=== PATIENT | female | born 1945 | race Caucasian/White ===

== ENCOUNTER 2020-04-15 13:37 | Outpatient (CLI) | payer MEDICARE, SELFPAY ==
[2020-04-15 14:21] LABS: Alanine Aminotransferase 20 U/L (4-35); Albumin Level 4.4 g/dL (3.5-5.1); Alkaline Phosphatase 88 U/L (38-126); Anion Gap 7 mmol/L (8-16); Aspartate Amino Transferase 28 U/L (14-36); Bilirubin,Total 0.6 mg/dL (0.2-1.3); Blood Urea Nitrogen 13 mg/dL (7-17); Carbon Dioxide 27 mmol/L (22-30); Chloride 107 mmol/L (98-107); Cholesterol 298 mg/dL (0-200); Estimated Glomerular Filt Rate > 60; Glucose 88 mg/dL (65-105); HDL Direct 64 mg/dL; Potassium 3.8 mmol/L (3.4-5.0); Sodium 141 mmol/L (137-145); Triglycerides 193 mg/dL (<150)
[2020-04-15 14:32] LABS: LDL Cholesterol Direct 82 mg/dL
== END 2020-04-15 13:38 | disposition home or self-care (01) ==
PROVIDERS: PCP Emergency Medicine; Visit Provider Emergency Medicine
DX: E78.2 Mixed hyperlipidemia (principal)
CPT/HCPCS: 36415; 80053; 80061; 84443

== ENCOUNTER 2020-05-07 14:16 | Outpatient (CLI) | payer MEDICARE, SELFPAY ==
--- NOTE | ~2020-05-07 | DEXA_ITS ---
Bone Density Report Name: Jose Guadalupe Gutierrez Age: 74 Sex: Female Ethnicity: White Date of : 1945 Indication: postmenopausal; height loss; hysterectomy; Referring Provider: TOO VALADEZ Study: Bone densitometry was performed. Exam Date: May 07, 2020 Accession number: [id number] Bone Density: Region BMD T-score Z-score Classification AP Spine (L1-L4) 0.984 -0.6 1.7 Normal Femoral Neck (Left) 0.714 -1.2 0.8 Osteopenia Total Hip (Left) 0.927 -0.1 1.6 Normal Total Hip Bilateral Avg 0.910 -0.3 1.5 Normal Femoral Neck (Right) 0.729 -1.1 0.9 Osteopenia Total Hip (Right) 0.892 -0.4 1.3 Normal World Health Organization criteria for BMD impression classify patients as: Normal (T-score at or above -1.0), Osteopenia (T-score between -1.0 and -2.5), or Osteoporosis (T-score at or below -2.5). 10-year Fracture Risk(1): Major Osteoporotic Fracture 9.9% Hip Fracture 1.5% Reported Risk Factors: [place] (), Neck BMD=0.714, BMI=28.9 (1) FRAX(R) Version 3.08. Fracture probability calculated for an untreated patient. Fracture probability may be lower if the patient has received treatment. Previous Exams: Region Exam Age BMD T-score BMD Change BMD Change Date g/cm2 vs Baseline vs Previous AP Spine(L1-L4) 05/07/2020 74 0.984 -0.6 0.015(1.5%)# 0.008(0.8%)# 02/08/2017 71 0.976 -0.6 0.007(0.7%)# 0.001(0.1%)# 11/16/2011 66 0.974 -0.7 0.005(0.6%)# 0.005(0.6%)# 07/15/2009 63 0.969 -0.7 Total Hip(Left) 05/07/2020 74 0.927 -0.1 0.029(3.2%)# -0.076(-7.6%)# 02/08/2017 71 1.003 0.5 0.105(11.7%)# 0.117(13.2%)# 11/16/2011 66 0.886 -0.5 -0.012(-1.4%)# -0.012(-1.4%)# 07/15/2009 63 0.898 -0.4 Total Hip(Right) 05/07/2020 74 0.892 -0.4 -0.023(-2.5%)# -0.119(-11.8%) 02/08/2017 71 1.011 0.6 0.096(10.5%)# 0.153(17.8%)# 11/16/2011 66 0.858 -0.7 -0.057(-6.2%)# -0.057(-6.2%)# 07/15/2009 63 0.915 -0.2 *Denotes significance at 95% confidence level, LSC for AP Spine = 0.022 g/cm2, LSC for Total Hip = 0.027 g/cm2 Clinical Information Provided by Patient: Has the following medical conditions: Hysterectomy Patient maximum height was 63 No regular weight bearing exercise Drinks caffeinated beverages Onset of menses at age 14 Number of children 3 Impression: The patient has low bone mass, based on the Left Femoral Neck T-score. The patient has an estimated ten-year r
--- NOTE | ~2020-05-07 | MM_ITS ---
EXAMINATION: MM screening contra [facility] BI w edilia HISTORY: Screening mammogram TECHNIQUE: Craniocaudal and mediolateral oblique 3-D tomosynthesis images were obtained and synthetic 2-D images were generated. CAD analysis was submitted and interpreted. COMPARISON: 09/19/2016, 08/02/2015, 06/02/2014 BREAST PARENCHYMAL COMPOSITION: The breasts are almost entirely fatty. FINDINGS: A stable intramammary lymph node is noted in the right breast. There is no evidence of susp icious mass, calcification, or architectural distortion to suggest malignancy in either breast. There has been no suspicious interval change. IMPRESSION: 1. No mammographic evidence of malignancy. 2. Recommend routine screening mammography in one year. BI-RADS Category 2: Benign finding(s). Reviewed, dictated and finalized at location A.
== END 2020-05-07 14:17 | disposition home or self-care (01) ==
LOC: ANHIMG 14:47
PROVIDERS: PCP Emergency Medicine; Visit Provider Emergency Medicine
DX: Z12.31 Encounter for screening mammogram for malignant neoplasm of breast (principal); Z78.0 Asymptomatic menopausal state; M85.852 Other specified disorders of bone density and structure, left thigh; M85.851 Other specified disorders of bone density and structure, right thigh
CPT/HCPCS: 77063; 77067; 77080

== ENCOUNTER 2020-10-07 12:09 | Outpatient (CLI) | payer MEDICARE, SELFPAY ==
[2020-10-07 13:05] LABS: Alanine Aminotransferase 16 U/L (4-35); Albumin Level 4.3 g/dL (3.5-5.1); Alkaline Phosphatase 74 U/L (38-126); Anion Gap 5 mmol/L (8-16); Aspartate Amino Transferase 27 U/L (14-36); Bilirubin,Total 0.6 mg/dL (0.2-1.3); Blood Urea Nitrogen 16 mg/dL (7-17); Calcium 9.2 mg/dL (8.4-10.2); Carbon Dioxide 30 mmol/L (22-30); Chloride 107 mmol/L (98-107); Cholesterol 155 mg/dL (0-200); Estimated Glomerular Filt Rate > 60; Glucose 90 mg/dL (65-105); HDL Direct 63 mg/dL; Sodium 142 mmol/L (137-145); Triglycerides 158 mg/dL (<150)
[2020-10-07 13:18] LABS: LDL Cholesterol Direct < 30 mg/dL
[2020-10-11 10:35] LABS: Vitamin D 1,25 (OH)2 Total 39 pg/mL (18-72); Vitamin D2 1,25 (OH)2 <8 pg/mL; Vitamin D3 1,25 (OH)2 39 pg/mL
== END 2020-10-07 12:10 | disposition home or self-care (01) ==
PROVIDERS: PCP Emergency Medicine; Visit Provider Emergency Medicine
DX: F51.01 Primary insomnia (principal); E78.2 Mixed hyperlipidemia
CPT/HCPCS: 36415; 80053; 80061; 82652; 84443

== ENCOUNTER 2020-10-22 14:34 | Outpatient (CLI) | payer MEDICARE, SELFPAY ==
[2020-10-22 15:33] LABS: Alanine Aminotransferase 15 U/L (4-35); Albumin Level 4.4 g/dL (3.5-5.1); Alkaline Phosphatase 77 U/L (38-126); Anion Gap 5 mmol/L (8-16); Aspartate Amino Transferase 24 U/L (14-36); Bilirubin,Total 0.4 mg/dL (0.2-1.3); Blood Urea Nitrogen 15 mg/dL (7-17); Calcium 9.2 mg/dL (8.4-10.2); Carbon Dioxide 28 mmol/L (22-30); Chloride 109 mmol/L (98-107); Cholesterol 153 mg/dL (0-200); Estimated Glomerular Filt Rate > 60; Glucose 92 mg/dL (65-105); HDL Direct 64 mg/dL; Potassium 4.1 mmol/L (3.4-5.0); Sodium 142 mmol/L (137-145); Triglycerides 135 mg/dL (<150)
[2020-10-22 17:04] LABS: LDL Cholesterol Direct < 30 mg/dL
== END 2020-10-22 14:35 | disposition home or self-care (01) ==
PROVIDERS: PCP Emergency Medicine; Visit Provider Emergency Medicine
DX: E03.9 Hypothyroidism, unspecified (principal); E78.2 Mixed hyperlipidemia
CPT/HCPCS: 36415; 80053; 80061; 84443

== ENCOUNTER → 2020-10-27 14:15 | Outpatient (CLI) | payer MEDICARE, SELFPAY ==
--- NOTE | ~2020-10-27 | CT_ITS ---
EXAMINATION: CT abdomen pelvis w con DATE: 10/27/2020 14:55 INDICATION: Left lower quadrant abdominal pain TECHNIQUE: Computed tomography (CT) of the abdomen and pelvis was performed with 100 cc Omnipaque 350 intravenous contrast. Automated exposure control and iterative reconstruction technique were employe d. Exam dose: 739.64 mGy-cm total exam DLP. COMPARISON: 11/16/2011 complete abdominal ultrasound examination, reported normal FINDINGS: The lung bases are clear. Normal heart size. No pericardial or pleural effusion. The liver, gallbladder, bile ducts, spleen, pancreas and pancreatic duct as well as adrenal glands an d kidneys are unremarkable, with exception of upper pole chronic right renal scarring and a small low er pole right renal cyst. No urinary tract calculus or hydroureteronephrosis. The urinary bladder is relatively evacuated, essentially unremarkable. There is atherosclerotic calcification of the abdominal aorta but no aneurysm. No intraperitoneal or retroperitoneal or pelvic mass lesion or adenopathy or ascites. No bowel obstruction, bowel wall thickening, pneumatosis or intraperitoneal free air. The appendix is not detected. There is no evidence of appendicitis. Very small fat-containing umbilical hernia. Diffuse osteopenia. Degenerative changes of the thoracic and lumbar spine including degenerative victor ges apophyseal joints with associated grade 1 anterolisthesis at L4-5.. IMPRESSION: Chronic right upper lobe scarring and very small lower pole right renal cyst Reviewed, dictated and finalized at Location A. Reviewed, dictated and finalized at location B.
[2020-10-27 14:45] LABS: Estimated Glomerular Filt Rate > 60
== END ==
PROVIDERS: PCP Emergency Medicine; Visit Provider Emergency Medicine
DX: R10.9 Unspecified abdominal pain (principal); N28.1 Cyst of kidney, acquired
CPT/HCPCS: 74177; Q9967

== ENCOUNTER 2020-11-16 14:43 | Outpatient (CLI) | payer MEDICARE, SELFPAY | END 2020-11-16 14:44 | disposition home or self-care (01) | PROVIDERS: PCP Emergency Medicine; Visit Provider Emergency Medicine | DX: E03.9 Hypothyroidism, unspecified (principal) | CPT/HCPCS: 36415; 84443 ==

== ENCOUNTER 2021-01-17 13:07 | Outpatient (CLI) | payer MEDICARE, SELFPAY ==
[2021-01-17 13:40] LABS: Alanine Aminotransferase 27 U/L (4-35); Albumin Level 4.4 g/dL (3.5-5.1); Alkaline Phosphatase 93 U/L (38-126); Anion Gap 9 mmol/L (8-16); Aspartate Amino Transferase 34 U/L (14-36); Bilirubin,Total 0.6 mg/dL (0.2-1.3); Blood Urea Nitrogen 13 mg/dL (7-17); Calcium 9.2 mg/dL (8.4-10.2); Carbon Dioxide 25 mmol/L (22-30); Chloride 108 mmol/L (98-107); Cholesterol 189 mg/dL (0-200); Estimated Glomerular Filt Rate > 60; Glucose 90 mg/dL (65-105); HDL Direct 63 mg/dL; Potassium 4.2 mmol/L (3.4-5.0); Sodium 142 mmol/L (137-145); Triglycerides 149 mg/dL (<150)
[2021-01-17 13:52] LABS: LDL Cholesterol Direct 36 mg/dL
== END 2021-01-17 13:08 | disposition home or self-care (01) ==
LOC: ANHLAB 13:09
PROVIDERS: PCP Emergency Medicine; Visit Provider Emergency Medicine
DX: Z13.6 Encounter for screening for cardiovascular disorders (principal); E03.9 Hypothyroidism, unspecified
CPT/HCPCS: 36415; 80053; 80061; 84443

== ENCOUNTER 2021-01-19 14:01 | Outpatient (CLI) | payer MEDICARE, SELFPAY ==
--- NOTE | ~2021-01-19 | XR_ITS ---
XR knee LT 2V 01/19/2021 14:22 Indication: Left knee pain Procedure: 2 views of the left knee Comparison: No prior studies for comparison. Findings: There is mild osteoarthritis of the left knee. No fracture or traumatic malalignment. No si gnificant joint effusion. Impression: 1: Mild osteoarthritis of the left knee. Reviewed, dictated and finalized at location A. Impression: 1: Mild osteoarthritis of the left knee.
== END 2021-01-19 14:02 | disposition home or self-care (01) ==
PROVIDERS: PCP Emergency Medicine; Visit Provider Emergency Medicine
DX: M17.12 Unilateral primary osteoarthritis, left knee (principal)
CPT/HCPCS: 73560

== ENCOUNTER 2021-04-26 13:26 | Outpatient (CLI) | payer MEDICARE, SELFPAY ==
[2021-04-26 14:23] LABS: Alanine Aminotransferase 31 U/L (4-35); Albumin Level 4.7 g/dL (3.5-5.1); Alkaline Phosphatase 94 U/L (38-126); Anion Gap 10 mmol/L (8-16); Aspartate Amino Transferase 34 U/L (14-36); Bilirubin,Total 0.7 mg/dL (0.2-1.3); Blood Urea Nitrogen 16 mg/dL (7-17); Carbon Dioxide 27 mmol/L (22-30); Chloride 105 mmol/L (98-107); Cholesterol 192 mg/dL (0-200); Estimated Glomerular Filt Rate > 60; Glucose 89 mg/dL (65-110); HDL Direct 73 mg/dL; Potassium 4.2 mmol/L (3.4-5.0); Sodium 142 mmol/L (137-145); Triglycerides 138 mg/dL (<150)
[2021-04-26 14:57] LABS: LDL Cholesterol Direct 41 mg/dL
== END 2021-04-26 13:27 | disposition home or self-care (01) ==
LOC: ANHLAB 13:28
PROVIDERS: PCP Emergency Medicine; Visit Provider Emergency Medicine
DX: E78.2 Mixed hyperlipidemia (principal); Z13.6 Encounter for screening for cardiovascular disorders
CPT/HCPCS: 36415; 80053; 80061

== ENCOUNTER 2021-06-05 12:21 | Emergency (ER) | payer MEDICARE, SELFPAY ==
--- NOTE | ~2021-06-05 | XR_ITS ---
EXAMINATION: XR hip RT min 3V w AP pelvis EXAM DATE: 06/05/2021 13:06 INDICATION: right hip pain, fall. TECHNIQUE: Right hip frontal, crosstable lateral and 'frog-leg' projections for interpretation. Front al projection pelvis. There is no prior study for comparison. FINDINGS: Smooth right hip femoral head contour, no radiographic evidence of avascular necrosis. The re are no acute fractures or dislocations identified. There is no subcutaneous gas. The soft tissue is unremarkable. There are no radiopaque foreign bodies. There is mild to moderate symmetric bila teral hip primary osteoarthritis. IMPRESSION: 1. Pelvis, right hip exam without acute osseous findings. 2. Mild to moderate osteoarthritis. Reviewed, dictated and finalized at location A.
--- NOTE | ~2021-06-05 | CT_ITS ---
EXAMINATION: CT brain wo [facility] EXAM DATE: 06/05/2021 13:29 INDICATION: Head injury, fall down steps. TECHNIQUE: Spiral CT of the head was performed without contrast. Axial, coronal and sagittal images were reviewed. The dose-length product (DLP) for this examination was 605.33 mGy-cm. The exposure w as tailored according to patient size, and iterative reconstruction (ASIR) was used as additional dos e reduction technique. There is no prior study for comparison. FINDINGS: There is no acute intraparenchymal hemorrhage. No evidence of intraparenchymal brain mass lesion. No evidence of acute infarction. Please note that initial head CT has limited sensitivity f or small or acute infarctions. There is mild periventricular and subcortical hypodensity, nonspecific but probably related to small vessel ischemic disease. There is mild prominence of the sulci and v entricles related to cerebral atrophy. There is intracranial carotid arteriosclerosis. There are n o extra-axial collections. There is no mass effect or midline shift. The orbits are unremarkable. Soft tissue is unremarkable. The visualized sinuses and mastoid air cells are well aerated. IMPRESSION: 1. No acute intracranial findings. 2. Chronic age related findings. Reviewed, dictated and finalized at location A.
--- NOTE | ~2021-06-05 | XR_ITS ---
EXAMINATION: XR shoulder RT min 2V EXAM DATE: 06/05/2021 13:06 INDICATION: Right shoulder pain, fall. TECHNIQUE: The following right shoulder projections obtained: frontal projection with internal rotati on, frontal projection with external rotation, Grashey, and scapular Y view (4+ views). There is no prior study for comparison. FINDINGS: One of the images demonstrating widening of the right acromioclavicular joint, appearance i s suspicious for ligamentous injury. Please clinically correlate. There is humeral head rotator cuff repair anchor. There are no acute fractures identified. IMPRESSION: Possible right acromioclavicular ligamentous injury. Reviewed, dictated and finalized at location A.
[2021-06-05 12:23] VITALS: BP 189/63; PULSE 100; RESP 16; TEMP 36.8; O2SAT 100
--- NOTE | 2021-06-05 12:44 | ED.FALL ---
HPI - Fall General Chief Complaint: Fall <Shelley Fernandez PA-C - Last Filed: 06/05/21 14:34> Stated Complaint: fall, head and right shoulder pain <EDMOND Ashton Last Filed: 06/05/21 14:34> Time Seen by Provider: 06/05/21 12:22 <EDMOND Ashton Last Filed: 06/05/21 14:34> Source: patient <EDMOND Ashton Last Filed: 06/05/21 14:34> Mode of arrival: wheelchair <EDMOND Ashton Last Filed: 06/05/21 14:34> Limitations: no limitations <EDMOND Ashton Last Filed: 06/05/21 14:34> History of Present Illness HPI Narrative: This is a 75 year old female that presents to the ER after a fall down steps today. Reports she was sitting on the steps on a pillow. Reports the pillow started to slip causing her to slide down the steps. She hit her head and right shoulder at the bottom of the steps. Also reports right hip pain. Reports decreased range of motion of the right shoulder due to pain. Denies vision changes, vomiting, or numbness. <EDMOND Ashton Last Filed: 06/05/21 14:34> Related Data Allergies/Adverse Reactions: Allergies Allergy/AdvReac Type Severity Reaction Status Date / Time vancomycin Allergy Unknown unknown Verified 06/05/21 12:28 No Known Allergies Allergy Verified 06/05/21 12:28 <Shelley Fernandez PA-C - Last Filed: 06/05/21 14:34> Review of Systems Review of Systems: CONSTITUTIONAL: Denies fever EYES: Denies visual changes CARDIOVASCULAR: Denies chest pain GASTROINTESTINAL: Denies vomiting MUSCULOSKELETAL: Reports joint pain and myalgia. Denies back pain NEUROLOGIC: Reports headache. Denies numbness, or weakness. <EDMOND Ashton Last Filed: 06/05/21 14:34> All systems reviewed & are unremarkable except as noted in HPI and below <EDMOND Ashton Last Filed: 06/05/21 14:34> PMFSH Past Medical History Medical History: Medical History (Updated 06/05/21 @ 14:30 by Shelley Fernandez PA-C) Hypothyroidism (acquired) Insomnia <Shelley Fernandez PA-C - Last Filed: 06/05/21 14:34> Family History Family History: Family History Mother Diabetes mellitus Family history of cardiovascular disease Cerebrovascular accident Family history of arthritis Other Family history of type 2 diabetes mellitus <Shelley Fernandez PA-C - Last Filed: 06/05/21 14:34> Social History Social History: Social History Social History: Patient drinks 7.5oz of caffeine daily. Patient also exercises daily. Smoking status: Never smoker Second hand tobacco smoke exposure: Yes Alcohol intake: never Substance use: never Substance use type: does not use Additional living arrangements comments: Patient is Gender identity (if verbalized by the patient): Female Sexual Orientation (if Verbalized by the Patient): Straight or Heterosexual <Shelley Fernandez PA-C - Last Filed: 06/05/21 14:34> Exam Narrative: GENERAL: Well-appearing, well-nourished, and in no acute distress. HEAD: Normocephalic, atraumatic. EYES: PERRLA and EOMI. ENT: Nares clear, no rhinorrhea or epistaxis. Mucous membranes moist. Oropharynx without tonsillar hypertrophy exudate or other lesions. Bilateral TMs pearly mchugh non-bulging NECK: Supple. No adenopathy or masses. No midline cervical spine tenderness CHEST: Clear to auscultation. No respiratory distress. No wheezes rales or rhonchi HEART: Regular rate and rhythm. No murmur heard. Normal peripheral pulses. BACK: No midline thoracic or lumbar spine tenderness EXTREMITIES: Normal range of motion, except decreased active range of motion of the right shoulder due to pain. No edema or obvious deformity. Normal peripheral pulses. Normal sensation SKIN: Warm, dry, no rash. NEURO: No focal deficits. Alert and oriented x3. Cranial nerves II through XII grossly intact
[2021-06-05] MEDS: ALPRAZolam (*CRX) 0.5 MG TABLET PO (12:50)
[2021-06-05] MEDS: ACETAMINOPHEN 500 MG TABLET 1000 MG PO (14:06)
[2021-06-05 14:07] VITALS: BP 169/84; PULSE 79; RESP 16; O2SAT 98
== END 2021-06-05 14:45 | disposition home or self-care (01) ==
PROVIDERS: Emergency Provider Emergency Medicine; PCP Emergency Medicine
DX: S09.90XA Unspecified injury of head, initial encounter (principal); S43.101A Unspecified dislocation of right acromioclavicular joint, initial encounter; E03.9 Hypothyroidism, unspecified; M16.11 Unilateral primary osteoarthritis, right hip; W10.9XXA Fall (on) (from) unspecified stairs and steps, initial encounter
CPT/HCPCS: 70450; 73030; 73502; 99284; A4565; A9270

== ENCOUNTER 2021-08-08 15:59 | Outpatient (CLI) | payer MEDICARE, SELFPAY ==
[2021-08-08 17:17] LABS: Alanine Aminotransferase 26 U/L (4-35); Albumin Level 4.6 g/dL (3.5-5.1); Alkaline Phosphatase 91 U/L (38-126); Anion Gap 8 mmol/L (8-16); Aspartate Amino Transferase 32 U/L (14-36); Bilirubin,Total 0.6 mg/dL (0.2-1.3); Blood Urea Nitrogen 15 mg/dL (7-17); Calcium 9.2 mg/dL (8.4-10.2); Carbon Dioxide 27 mmol/L (22-30); Chloride 105 mmol/L (98-107); Cholesterol 151 mg/dL (0-200); Estimated Glomerular Filt Rate > 60; Glucose 90 mg/dL (65-110); HDL Direct 70 mg/dL; Potassium 3.7 mmol/L (3.4-5.0); Sodium 140 mmol/L (137-145); Triglycerides 113 mg/dL (<150)
[2021-08-08 17:28] LABS: LDL Cholesterol Direct 34 mg/dL
== END 2021-08-08 16:00 | disposition home or self-care (01) ==
PROVIDERS: PCP Emergency Medicine; Visit Provider Emergency Medicine
DX: E78.2 Mixed hyperlipidemia (principal); E03.9 Hypothyroidism, unspecified
CPT/HCPCS: 36415; 80053; 80061; 84443

== ENCOUNTER 2021-11-01 14:44 | Outpatient (CLI) | payer MEDICARE, SELFPAY ==
[2021-11-01 15:34] LABS: Alanine Aminotransferase 24 U/L (4-35); Albumin Level 4.7 g/dL (3.5-5.1); Alkaline Phosphatase 93 U/L (38-126); Anion Gap 8 mmol/L (8-16); Aspartate Amino Transferase 34 U/L (14-36); Bilirubin,Total 0.5 mg/dL (0.2-1.3); Blood Urea Nitrogen 14 mg/dL (7-17); Calcium 9.2 mg/dL (8.4-10.2); Carbon Dioxide 27 mmol/L (22-30); Chloride 106 mmol/L (98-107); Cholesterol 163 mg/dL (0-200); Estimated Glomerular Filt Rate > 60; Glucose 92 mg/dL (65-110); HDL Direct 66 mg/dL; Potassium 3.9 mmol/L (3.4-5.0); Sodium 141 mmol/L (137-145); Triglycerides 159 mg/dL (<150)
[2021-11-01 15:54] LABS: LDL Cholesterol Direct < 30 mg/dL
== END 2021-11-01 14:45 | disposition home or self-care (01) ==
PROVIDERS: PCP Emergency Medicine; Visit Provider Emergency Medicine
DX: E78.2 Mixed hyperlipidemia (principal)
CPT/HCPCS: 36415; 80053; 80061

== ENCOUNTER 2021-11-24 14:35 | Outpatient (CLI) | payer MEDICARE, SELFPAY ==
--- NOTE | ~2021-11-24 | MM_ITS ---
EXAMINATION: MM screening ana BI w edilia HISTORY: Screening mammogram TECHNIQUE: Craniocaudal and mediolateral oblique 3-D tomosynthesis images were obtained and synthetic 2-D images were generated. CAD analysis was submitted and interpreted. COMPARISON: May 07, 2020, September 19, 2016 bilateral screening mammogram examinations BREAST PARENCHYMAL COMPOSITION: The breasts are almost entirely fatty. FINDINGS: Stable small bilateral posterior intramammary lymph nodes, not significantly changed since September 19, 2016. There is no evidence of suspicious mass, calcification, or architectural distortio n to suggest malignancy in either breast. There has been no suspicious interval change. IMPRESSION: 1. No mammographic evidence of malignancy. 2. Recommend routine screening mammography in one year. BI-RADS Category 2: Benign finding(s). Reviewed, dictated and finalized at location A.
== END 2021-11-24 14:36 | disposition home or self-care (01) ==
PROVIDERS: PCP Emergency Medicine; Visit Provider Emergency Medicine
DX: Z12.31 Encounter for screening mammogram for malignant neoplasm of breast (principal)
CPT/HCPCS: 77063; 77067

== ENCOUNTER 2021-12-20 13:17 | Outpatient (CLI) | payer MEDICARE, SELFPAY ==
--- NOTE | 2021-12-20 | ECG_ITS ---
Measurements Intervals [place] Rate: 70 P: -10 OK: 166 QRS: -4 QRSD: 99 T: 65 QT: 374 QTc: 406 Interpretive Statements SINUS RHYTHM BASELINE WANDER- I, II, III NORMAL ECG Electronically Signed On 12-20-2021 13:57:51 CDT by Alexandr Kennedy D.O.
--- NOTE | ~2021-12-20 | CT_ITS ---
EXAMINATION: CT LE LT wo con DATE: 12/20/2021 14:20 INDICATION: Unilateral primary osteoarthritis, left knee. TECHNIQUE: Computed tomography (CT) of the left lower limb was performed without intravenous contrast . Automated exposure control and iterative reconstruction technique were employed. The dose-length pr oduct was 1626.12 mGy-cm. COMPARISON: Left knee radiographs 09/06/2021 FINDINGS: Bone alignment is normal. No fracture. There is mild left hip osteoarthritis. Left knee dem onstrates moderate osteoarthritis of the medial and patellofemoral compartments and mild osteoarthrit is of the lateral compartment. No knee joint effusion. There is a moderate-sized Ha's cyst with lo ose bodies. IMPRESSION: 1. Moderate left knee osteoarthritis. 2. Moderate-sized left Ha's cyst with loose bodies. 3. Mild left hip osteoarthritis. Reviewed, dictated and finalized at location B.
[2021-12-20 14:01] LABS: Albumin Level 4.6 g/dL (3.5-5.1); Estimated Glomerular Filt Rate > 60
== END 2021-12-20 13:18 | disposition home or self-care (01) ==
PROVIDERS: PCP Emergency Medicine; Visit Provider Orthopaedic Surgery
DX: M17.12 Unilateral primary osteoarthritis, left knee (principal); Z01.818 Encounter for other preprocedural examination; M16.12 Unilateral primary osteoarthritis, left hip; M25.462 Effusion, left knee; M23.42 Loose body in knee, left knee
CPT/HCPCS: 36415; 73700; 82040; 82565; 93005

== ENCOUNTER 2021-12-23 12:06 | Outpatient (CLI) | payer MEDICARE, SELFPAY ==
[2021-12-23 12:37] LABS: Hematocrit 39.8 % (37.0-47.0)
[2021-12-23 12:53] LABS: Glucose 88 mg/dL (65-110)
[2021-12-23 13:01] LABS: Hemoglobin A1C 5.2 % (<5.7)
== END 2021-12-23 12:07 | disposition home or self-care (01) ==
LOC: ANHLAB 12:08
PROVIDERS: PCP Emergency Medicine; Visit Provider Orthopaedic Surgery
DX: M17.12 Unilateral primary osteoarthritis, left knee (principal); Z01.818 Encounter for other preprocedural examination; E78.5 Hyperlipidemia, unspecified; E03.9 Hypothyroidism, unspecified
CPT/HCPCS: 36415; 82947; 83036; 85014; 85018

== ENCOUNTER 2022-02-02 10:11 | Emergency (ER) | payer MEDICARE, SELFPAY ==
--- NOTE | ~2022-02-02 | CT_ITS ---
EXAMINATION: CT brain wo con DATE: 02/02/2022 11:15 INDICATION: Headache and nausea TECHNIQUE: Computed tomography (CT) of the head was performed without intravenous contrast. The dose- length product was 605.33 mGy-cm. Automated exposure control and iterative reconstruction technique w ere employed. COMPARISON: CT dated 06/05/2021 FINDINGS: Mild atrophy. There are scattered mild periventricular and subcortical white matter changes , most likely related to small vessel ischemic disease (microangiopathy). No acute intracranial hemor rhage, infarction, mass or mass effect. No ventriculomegaly or midline shift. Basilar cisterns are pa tent. Paranasal sinuses and mastoids are pneumatized. IMPRESSION: 1. No acute intracranial abnormality. 2: Chronic age-related findings. Reviewed, dictated and finalized at location A.
[2022-02-02 10:16] VITALS: BP 160/98; PULSE 96; RESP 17; TEMP 36.6; O2SAT 97
[2022-02-02 10:33] VITALS: RESP 17; O2SAT 96
[2022-02-02 10:34] VITALS: PULSE 87
--- NOTE | 2022-02-02 10:38 | ED.GENADULT ---
HPI - General Adult General Chief complaint: Unspecified Stated complaint: headache, nausea, ST Time Seen by Provider: 02/02/22 10:13 History of Present Illness HPI narrative: Called 76-year-old presents to the emergency room with right-sided headache, that radiates into her right maxilla, sinus congestion, postnasal drip, sore throat sudden onset yesterday. Patient states that she is frequently clearing her throat, which is causing her to have a sore throat. Patient denies any injury or trauma. Patient states yesterday she picked up some [id number] Sudafed, which has since its not helping her symptoms. Denies fever Related Data Allergies Allergy/AdvReac Type Severity Reaction Status Date / Time vancomycin Allergy Unknown unknown Verified 11/09/21 13:21 Review of Systems Review of Systems: CONSTITUTIONAL: Denies fever, chills, or sweats. EYES: Denies visual changes, redness, or discharge. ENT: Reports rhinorrhea, congestion, sore throat, or otalgia. CARDIOVASCULAR: Denies chest pain, palpitations, or edema. RESPIRATORY: Denies cough or dyspnea. GASTROINTESTINAL: Denies abdominal pain, nausea, vomiting, or diarrhea. GENITOURINARY: Denies dysuria or hematuria. SKIN: Denies rash or itching. MUSCULOSKELETAL: Denies back pain, joint pain, or myalgia. NEUROLOGIC: Reports headache, dizziness PSYCHIATRIC: Denies anxiety or depression. [facility] Past Medical History Medical History (Updated 02/02/22 @ 11:43 by Geo Grande APRN) Hypothyroidism (acquired) Insomnia Family History Family History Mother Diabetes mellitus Family history of cardiovascular disease Cerebrovascular accident Family history of arthritis Other Family history of type 2 diabetes mellitus Social History Social History Social History: Patient drinks 7.5oz of caffeine daily. Patient also exercises daily. Smoking status: Never smoker Second hand tobacco smoke exposure: Yes Alcohol intake: never Substance use: never Substance use type: does not use Additional living arrangements comments: Patient is Gender identity (if verbalized by the patient): Female Sexual Orientation (if Verbalized by the Patient): Straight or Heterosexual Exam Narrative: GENERAL: Well-appearing, well-nourished, no physical limitations, and in no acute distress. HEAD: Normocephalic, atraumatic. Tenderness over the right frontal and maxillary sinuses EYES: Conjunctivae normal, PERRLA and EOMI. ENT: External nose normal, Nares clear, no rhinorrhea or epistaxis. Mucous membranes moist. Oropharynx without tonsillar hypertrophy exudate or other lesions. External ears normal, bilateral TMs normal bilaterally NECK: Supple. No meningeal signs. No adenopathy or masses. No carotid bruits or JVD CHEST: Clear to auscultation. No respiratory distress. No wheezes rales or rhonchi. No tenderness. HEART: Regular rate and rhythm. No murmur heard. Normal peripheral pulses. EXTREMITIES: Normal range of motion. No edema. No clubbing or cyanosis SKIN: Warm, dry, no rash. No noted wounds NEURO: No focal deficits. Alert and oriented x3. MAEW. CN's II-XI intact bilaterally, normal gait PSYCH: Cooperative. Normal mood and affect. Course Vital Signs Vital signs: Vital Signs Temperature 36.6 C 02/02/22 10:16 Pulse Rate 96 02/02/22 10:16 Respiratory Rate 17 02/02/22 10:16 Blood Pressure 160/98 H 02/02/22 10:16 Pulse Oximetry 97 02/02/22 10:16 Temperature 36.6 C 02/02/22 10:16 Pulse Rate 87 02/02/22 10:34 Respiratory Rate 17 02/02/22 10:33 Blood Pressure 160/98 H 02/02/22 10:16 Pulse Oximetry 96 02/02/22 10:33 Medical Decision Making Vital Signs Vital Signs: Vital Signs Temperature 36.6 C 02/02/22 10:16 Pulse Rate 96 02/02/22 10:16 Respiratory Rate 17 02/02/22 10:16 Blood Pressure 160/98 H 06/3
[2022-02-02 10:59] LABS: Basophils Percent Auto 0.8 % (0.2-1.2); Eosinophils Percent Auto 0.2 % (0-4.4); Hemoglobin 13.9 g/dL (12.0-15.0); Immature Granulocyte Absolute 0.01 K/mm3 (0.00-0.031); Immature Granulocyte Percent A 0.2 % (0-0.5); Lymphocytes Absolute Auto 0.83 K/mm3 (0.9-3.2); Lymphocytes Percent Auto 16.5 % (18.3-44.2); Mean Corpuscular HGB Conc 33.1 g/dl (32-36); Mean Corpuscular Hemoglobin 30.8 pg (26-34); Mean Corpuscular Volume 93.1 fl (80-100); Mean Platelet Volume 10.5 fl (7.4-10.4); Monocytes Absolute Auto 0.5 K/mm3 (0.1-0.6); Monocytes Percent Auto 10.5 % (2.6-8.5); Neutrophils Absolute Auto 3.6 K/mm3 (1.3-6.7); Neutrophils Percent Auto 71.8 % (45.5-73.1); Platelet Count Result 237 k/mm3 (150-375); Red Blood Count 4.51 M/mm3 (4.2-5.4); Red Cell Distribution Width 12.4 % (11.5-14.5)
[2022-02-02 11:06] LABS: Alanine Aminotransferase 30 U/L (6-35); Albumin Level 5.2 g/dL (3.5-5.1); Alkaline Phosphatase 135 U/L (38-126); Anion Gap 11 mmol/L (8-16); Aspartate Amino Transferase 32 U/L (14-36); Blood Urea Nitrogen 7 mg/dL (7-17); Calcium 9.2 mg/dL (8.4-10.2); Carbon Dioxide 26 mmol/L (22-30); Chloride 102 mmol/L (98-107); Estimated CRCL calculation 63 ml/min; Estimated Glomerular Filt Rate > 60; Glucose 104 mg/dL (65-110); Potassium 3.6 mmol/L (3.4-5.0); Sodium 139 mmol/L (137-145)
[2022-02-02 11:31] LABS: SARS-CoV-2 RNA PCR Positive
[2022-02-02 11:49] LABS: Erythrocyte Sedimentation Rate 20 mm/hr (0-20)
[2022-02-02] MEDS: ONDANSETRON HCL ODT 4 MG TABLET PO (11:52)
[2022-02-02 12:26] VITALS: PULSE 89; RESP 18; O2SAT 99
== END 2022-02-02 12:28 | disposition home or self-care (01) ==
PROVIDERS: Emergency Provider Nurse Practitioner Family; PCP Emergency Medicine
DX: U07.1 COVID-19 (principal); R09.81 Nasal congestion; R11.0 Nausea; E03.9 Hypothyroidism, unspecified; Z77.22 Contact with and (suspected) exposure to environmental tobacco smoke (acute) (chronic)
CPT/HCPCS: 36415; 70450; 80053; 85025; 85652; 99284; A9270; C9803; U0003; U0005

== ENCOUNTER 2022-02-23 13:51 | Outpatient (CLI) | payer MEDICARE, SELFPAY ==
[2022-02-23 15:58] LABS: Urine Cotinine NEGATIVE
== END 2022-02-23 13:52 | disposition home or self-care (01) ==
PROVIDERS: PCP Emergency Medicine; Visit Provider Orthopaedic Surgery
DX: Z01.818 Encounter for other preprocedural examination (principal); M17.12 Unilateral primary osteoarthritis, left knee
CPT/HCPCS: 80307; 86850; 86900; 86901; 87081

== ENCOUNTER 2022-03-07 00:01 | Day surgery (SDC) | payer MEDICARE, SELFPAY ==
[2022-02-23 14:04] VITALS: BMI 26.4
--- NOTE | 2022-02-23 14:33 | PC.NURSE ---
Report to the Outpatient Waiting Room, entrance under the green pavilion located off [facility], at time 0900 on date __03/07/22 . OR Time: __1100 . - You and your visitor will be asked a series of questions to screen for COVID 19 for your protection. - Only one visitor is allowed at this time. - The patient visitor is requested to leave or wait in car when not with patient. - A mask is required within the hospital. Patients may have clear liquids (water, carbonated beverages, clear teas, apple juice) until 3 hours prior to surgery with a maximum of 20 ounces. - No food from midnight until time of surgery - Infants may have breast milk until 4 hours before surgery, infant formula 6 hours prior to surgery. - Children will be allowed to drink immediately following surgery. If applicable, please bring a bottle or sippy cup to assist with drinking. Juice, water, soda, and popsicles are readily available. For infants on formula, please bring formula the day of surgery. Pacifiers are allowed. Take the following medications with a SIP of water the morning of surgery: __LEVOTHYROXINE,ALPRAZOLAM IF NEEDED Medications to discontinue per physician NONE Date to take last dose Please no make-up, nail lao, hairspray, perfume, deodorant, or body powder the day of surgery. No jewelry (including any body piercings) or valuables the day of surgery, leave them at home. Please take a shower or bath the night before, or the morning of, surgery with an antibacterial soap. Wear comfortable, loose fitting clothing. Children are encouraged to wear pajamas. - Jewelry must be removed prior to entering the operating room. Rings and piercings that are not removed may be cut off. - The hospital will not accept responsibility for valuables. - Please leave all valuables, including medications, at home the day of surgery. If you are going home after surgery, a licensed road oiling truck driver must drive you home. - NO public transportation without another adult. - We recommend that an adult stay with you for 24 hours following discharge. - We also recommend that you do not drive, make important decision, drink alcoholic beverages, or take any drugs that were not prescribed by your health care provider for at least 24 hours after your discharge time. For Pediatric surgeries, we recommend two adults accompany the child home (only one inside the building at this time). Follow any additional instructions given to you from your surgeon. If you or anyone in your household have experienced Covid symptoms in the past week, please notify your surgeon or the nurse liaison at the phone number below for possible testing. VERBAL AND WRITTEN instructions given to _PATIENT and asked if any additional questions and then verbalized understanding. Patient advised to call surgeon office or pre surgery nurse liaison [phone] if any additional questions.
--- NOTE | 2022-02-23 14:41 | PC.NURSE ---
Report to the Outpatient Waiting Room, entrance under the green pavilion located off [facility], at time 0900 on date 03/07/22 . OR Time: _1100 . - You and your visitor will be asked a series of questions to screen for COVID 19 for your protection. - Only one visitor is allowed at this time. - The patient visitor is requested to leave or wait in car when not with patient. - A mask is required within the hospital. Patients may have clear liquids (water, carbonated beverages, clear teas, apple juice) until 3 hours prior to surgery with a maximum of 20 ounces. - No food from midnight until time of surgery - Infants may have breast milk until 4 hours before surgery, infant formula 6 hours prior to surgery. - Children will be allowed to drink immediately following surgery. If applicable, please bring a bottle or sippy cup to assist with drinking. Juice, water, soda, and popsicles are readily available. For infants on formula, please bring formula the day of surgery. Pacifiers are allowed. Take the following medications with a SIP of water the morning of surgery: ___ALPRAZOLAM,LEVOTHYROXINE Medications to discontinue per physician ___NONE Date to take last dose Please no make-up, nail citizen of [place], hairspray, perfume, deodorant, or body powder the day of surgery. No jewelry (including any body piercings) or valuables the day of surgery, leave them at home. Please take a shower or bath the night before, or the morning of, surgery with an antibacterial soap. Wear comfortable, loose fitting clothing. Children are encouraged to wear pajamas. - Jewelry must be removed prior to entering the operating room. Rings and piercings that are not removed may be cut off. - The hospital will not accept responsibility for valuables. - Please leave all valuables, including medications, at home the day of surgery. If you are going home after surgery, a licensed cdl team truck driver must drive you home. - NO public transportation without another adult. - We recommend that an adult stay with you for 24 hours following discharge. - We also recommend that you do not drive, make important decision, drink alcoholic beverages, or take any drugs that were not prescribed by your health care provider for at least 24 hours after your discharge time. For Pediatric surgeries, we recommend two adults accompany the child home (only one inside the building at this time). Follow any additional instructions given to you from your surgeon. If you or anyone in your household have experienced Covid symptoms in the past week, please notify your surgeon or the nurse liaison at the phone number below for possible testing. VERBAL AND WRITTEN instructions given to __PATIENT and asked if any additional questions and then verbalized understanding. Patient advised to call surgeon office or pre surgery nurse liaison [phone] if any additional questions.
[2022-02-23 15:03] VITALS: BP 147/84; PULSE 85; RESP 18; TEMP 37.2; O2SAT 97
--- NOTE | 2022-03-06 11:22 | WPDANESEPPF ---
Anes - Initial Pre Proc Eval Procedure: Operation Date: 03/07/22 11:00 Proposed Procedures p Left Custom Total Knee Replacement - Levi Michel MD Date/Time: 03/06/22 11:22 Surgeon: Levi Michel MD Pre Op Diagnosis: primary oa left knee Patient Data Age: 76 Gender: F Height: 1.56 m Weight: 64.5 kg Last Vital Signs Temp 37.2 C 02/23/22 15:03 Pulse 85 02/23/22 15:03 Resp 18 02/23/22 15:03 BP 147/84 H 02/23/22 15:03 Pulse Ox 97 02/23/22 15:03 O2 Del Method Room Air 02/23/22 15:03 Allergies Allergy/AdvReac Type Severity Reaction Status Date / Time vancomycin Allergy Unknown unknown Verified 03/07/22 09:58 Home Medications Medication Instructions Recorded Confirmed Type alprazolam 0.5 mg tablet (Xanax) 0.5 mg PO BID PRN anxiety #30 tabs 11/21/21 03/07/22 Rx atorvastatin 10 mg tablet 10 mg PO DAILY #90 tabs 01/03/22 03/07/22 Rx cyclobenzaprine 10 mg tablet See Rx Instructions .Route 01/03/22 03/07/22 Rx .COMPLEX PRN muscle spasm #90 tabs fluticasone propionate 50 1 spray intranasal DAILY #16 grams 01/03/22 03/07/22 Rx mcg/actuation nasal spray,suspension (Flonase Allergy Relief) levothyroxine 75 mcg tablet See Rx Instructions .Route 01/10/22 03/07/22 Rx .COMPLEX #90 tabs hydroxyzine HCl 25 mg tablet 25 mg PO BID PRN itching #30 tabs 02/17/22 03/07/22 Rx acetaminophen-caffeine 500 mg-65 1 tablet PO Q12H PRN Headache 02/23/22 03/07/22 History mg tablet (Excedrin Tension Headache) fexofenadine 180 mg tablet 180 mg PO DAILY 02/23/22 03/07/22 History (Mckenzie Allergy) pantoprazole 40 mg tablet,delayed 40 mg PO DAILY 02/23/22 03/07/22 History release zolpidem 10 mg tablet 10 mg PO PRN PRN insomnia 02/23/22 03/07/22 History Patient hx anesthesia problems: none Family hx anesthesia problems: none Results Review: All pre-operative results and documents have been reviewed as part of the pre-operative evaluation. [facility] Past Medical History Medical History (Updated 03/06/22 @ 11:24 by Gagan Alvarenga MD) Anxiety Chronic GERD Hyperlipidemia Hypothyroidism (acquired) Hypothyroidism, unspecified Insomnia Overweight (BMI 25.0-29.9) Peripheral neuropathy Spinal stenosis Spinal stenosis at L4-L5 level Family History Family History Mother Diabetes mellitus Family history of cardiovascular disease Cerebrovascular accident Family history of arthritis Other Family history of type 2 diabetes mellitus Social History Social History Social History: Patient drinks 7.5oz of caffeine daily. Patient also exercises daily. Smoking status: Never smoker Second hand tobacco smoke exposure: Yes Additional smoking assessment comments: DENIES ANY TOBACCO USE Alcohol intake: never Substance use: never Substance use type: does not use Living arrangements: with family Additional living arrangements comments: Patient is Gender identity (if verbalized by the patient): Female Sexual Orientation (if Verbalized by the Patient): Straight or Heterosexual Spiritual care concerns: No Anes - Eval Final PreProcedure Day of Procedure 03/06/22 11:22 Patient weight: overweight Heart: regular rate and rhythm Lungs: clear to auscultation and normal air movement Airway: Mallampati scale class II Neurological: alert and oriented Last oral intake: >/= 8 hours ASA classification: III Emergent: no Anesthetic plan: proceed Anesthesia type and monitoring: general LMA Results Review: All pre-operative results and documents have been reviewed as part of the pre-operative evaluation. Informed Consent: The patient's anesthetic plan and its attendant risks and benefits were discussed with the patient/family/POA. Questions were solicited and answers provided to the satisfaction of the patient/family/POA.
--- NOTE | 2022-03-06 11:25 | WPDANESPNB ---
Anes - Peripheral Nerve Block Date/Time: 03/06/22 11:25 I have discussed with the patient/family/POA the placement of a peripheral nerve block for post-operative pain management, including associated risks, benefits, complications, and side effects. Alternative methods of post-operative analgesia were detailed. Questions were solicited and answers provided to the satisfaction of the patient/family/POA. Time-Out: A pre-procedural Time-Out was completed immediately before starting the procedure and confirmed: Patient Identification, Site, Procedure, Patient Position and the Availability of Requisite Equipment. Clinical Indications: Acute post-operative pain management requested by the operative surgeon. Nerve Block Insertion Note Anes-nerve block: adductor canal left Patient position: supine Skin prep: chlorhexidine Needle: 22 gauge, stimulating, insulated echogenic needle. Needle length: 80 mm Technique: ultrasound Technique comment: in plane Injectate: bupivacaine 0.5% with epi 5 mcg/ml (30cc) Observations: tolerated well Complications: none Procedure start time:: 1100 Procedure end time:: 1105
[2022-03-07] VITALS (13 sets, daily range): BP systolic 124–161; BP diastolic 56–79; PULSE 72–104; RESP 14–20; TEMP 36.2–37.1; O2SAT 94–98
--- NOTE | ~2022-03-07 | XR_ITS ---
EXAMINATION: XR knee LT 2V DATE: 03/07/2022 14:05 INDICATION: Postoperative evaluation following left total knee arthroplasty. TECHNIQUE: Anteroposterior and lateral views of the left knee were obtained. COMPARISON: Left knee radiographs dated 09/06/2021 FINDINGS: Left total knee arthroplasty with patellar resurfacing appears well seated and in near anatomic align ment. No fractures identified. Expected postoperative subcutaneous and intra-articular gas. IMPRESSION: 1. Left total knee arthroplasty, negative for postoperative purposes. Reviewed, dictated and finalized at location A.
[2022-03-07] MEDS: ACETAMINOPHEN 500 MG TABLET 1000 MG PO (10:21)
[2022-03-07] MEDS: TRANEXAMIC ACID 1,000MG/ISO100 1,000 MG/100 ML BAG 200 MG IVPB (10:24)
[2022-03-07] MEDS: LACTATED RINGERS 1,000 ML 30 ML IV CONT ×2 (10:26→13:51)
--- NOTE | 2022-03-07 10:53 | WPDHPUPDATE1 ---
History and Physical Update Update Date/Time: 03/07/22 10:53 History and Physical has been reviewed, including an updated exam of the patient. There are NO changes in the patient's condition. Risks, benefits, and alternatives have been discussed and questions answered. Patient agrees to proceed with procedure.
[2022-03-07] MEDS: ceFAZolin 2 GM/D5W 50 ML 2 GM/50 ML BAG IVPB ×2 (11:20→18:04)
[2022-03-07] MEDS: ONDANSETRON INJ 4 MG/2 ML VIAL IV PUSH ×3 (14:10→18:48)
[2022-03-07] MEDS: fentaNYL CITRATE INJ (*CRX) 100 MCG/2 ML VIAL 25 MCG IV PUSH ×3 (14:58→15:15)
--- NOTE | 2022-03-07 15:12 | P.OP_ITS ---
Procedure Note - Detailed Date of Procedure 03/07/22 Pre-op Diagnosis primary oa left knee Post-op Diagnosis Same Procedure Performed Total knee arthroplasty Surgeon Levi Michel MD Founder And President Coretta Molina PA-C Anesthesia General and Regional (Subsartorial block.) Findings Good bone quality. Degenerative changes more apparent upon inspection than suggested by radiographs. Severe thinning of the patella. Small stature. Custom implants fit optimally. No additional releases. 10 degree anatomic tibial slope. Description of Procedure Preoperative antibiotics were given. The limb was prepped and draped in the usual sterile fashion with a well-padded tourniquet high on the thigh. The limb was exsanguinated and the tourniquet inflated to 300 mmHg. A longitudinal incision was created just medial to the patella. A trivector approach to the knee was performed. Arthrotomy was taken down through the joint capsule. No significant releases were initially taken. The femur was exposed and the F1 jig was applied. The coring tool was used to remove the cartilage for the F2 jig to sit flush with the bone. The jig was pinned and the distal cut carefully taken. Caliper measurements confirmed appropriate bony resections according to the preoperative templated plan. The F4 cutting jig for the femur was applied, at the standard rotation. The AP and anterior chamfer cuts were taken. The F5 jig was applied and the posterior chamfer cuts were taken. The tibia was prepared using the T1 jig, after removing cartilage for the jig contact points. Proper alignment was checked with the alignment tiburcio. The tibia was cut using the T1u guide. Gap balancing was performed. Gap measurements were taken and the knee was trialed. Excellent alignment and soft tissue balancing was confirmed. The posterior cruciate ligament was recessed along the proximal tibia. The patella was cut for resurfacing. Three lug holes were drilled. Meniscal remnants were removed. The trial components were assembled. Excellent range of motion and proper soft tissue balancing were confirmed throughout the full range of motion. Patellar tracking was excellent. The knee was copiously irrigated periodically throughout the procedure. The real implants were cemented into position. Excess cement was carefully removed. The wound was closed in layers with interrupted #1 Vicryl suture, 2-0 strata fix suture, 0 strata fix suture, 2-0 strata fix suture. Steri-Strips placed on the skin with the knee flexed. Sterile bulky dressing applied. The patient was brought to the recovery room in stable condition. There were no complications. Physician dairy and food laboratory assistant, Coretta Molina PA-C, required for surgery; including patient positioning, draping, tissue retraction, maintaining instrument position, cement removal, wound closure, and dressing placement. Implants Conformis Custom total knee arthroplasty. Cemented. Cruciate retaining. 6A insert. 38 mm oval patella. Estimated Blood Loss -200.0 Drains No Complications No immediate complications Condition Stable Disposition PACU [facility] Billing Surgery - Charge Forward: Surgery Billing
--- NOTE | 2022-03-07 15:35 | PC.NURSE ---
This patient, Jose Guadalupe Gutierrez, was admitted to Medical Room 253-01. Patient/family oriented to hospital policies and general routines including ID bracelet, bed and alarms, visiting hours, pain management, procedures, bathroom and other care routines, personal items, smoking policy, room service/diet, and visiting hours. Information on how to activate the Rapid Response Team has been discussed. Patient/Family are encouraged to report perceived risks to care and to ask questions if they do not understand what they are told or what they should do.
[2022-03-07] MEDS: SODIUM CHLORIDE 0.9% IV 1,000 ML 125 ML IV CONT (16:05)
[2022-03-07] MEDS: ASPIRIN 81 MG ENTERIC TABLET PO (16:18)
[2022-03-07] MEDS: MELOXICAM 7.5 MG TABLET PO (16:18)
[2022-03-07] MEDS: SENNA/DOCUSATE SODIUM TABLET 2 TAB PO (16:18)
[2022-03-07] MEDS: oxyCODONE HCL (*CRX) 5 MG TAB IR 10 MG PO (18:03)
[2022-03-08 01:20] VITALS: BP 128/63; PULSE 70; RESP 16; TEMP 36.9; O2SAT 97
[2022-03-08] MEDS: oxyCODONE HCL (*CRX) 5 MG TAB IR PO ×2 (01:45→08:07)
[2022-03-08] MEDS: ONDANSETRON INJ 4 MG/2 ML VIAL IV PUSH ×2 (01:46→08:07)
[2022-03-08] MEDS: ceFAZolin 2 GM/D5W 50 ML 2 GM/50 ML BAG IVPB ×2 (03:20→10:18)
[2022-03-08 05:20] VITALS: BP 139/54; PULSE 85; RESP 22; TEMP 36.9; O2SAT 94
[2022-03-08] MEDS: LEVOTHYROXINE SODIUM 75 MCG TABLET PO (05:34)
[2022-03-08] MEDS: ASPIRIN 81 MG ENTERIC TABLET PO (08:00)
[2022-03-08] MEDS: FLUTICASONE PROPIONATE 0.05% NA SPR 16 GM BTL (*BKC) 1 SPRAY NASAL (08:00)
[2022-03-08] MEDS: predniSONE 5 MG TABLET PO (08:00)
[2022-03-08] MEDS: polyethylene glycoL 3350 17 GM POWD.PACK PO (08:00)
[2022-03-08] MEDS: LORATADINE 10 MG TABLET PO (08:01)
[2022-03-08] MEDS: SENNA/DOCUSATE SODIUM TABLET 2 TAB PO (08:01)
[2022-03-08] MEDS: MELOXICAM 7.5 MG TABLET PO (08:01)
[2022-03-08] MEDS: ATORVASTATIN 10 MG TABLET PO (08:01)
[2022-03-08] MEDS: PANTOPRAZOLE 40 MG TABLET PO (08:01)
--- NOTE | 2022-03-08 08:27 | PM.DS ---
DS: Admitting Diagnosis Discharge Date 03/08/22 Admitting Diagnosis OA knee Left DS: Discharge Diagnosis Discharge Diagnosis (1) Status post total left knee replacement: Code(s): Z96.652 - Presence of left artificial knee joint Status: Acute Assessment and Plan: Postop day 1: Left total knee arthroplasty. Patient tolerated procedure well. No complications. Pain manageable with pain medication. No numbness or tingling. We had a lengthy discussion regarding postoperative wound care, limitations, expectations, and exercises. Patient shows good understanding. She has had initial physical therapy and is tolerating it well. DVT prophylaxis: 81 mg baby aspirin b.i.d. for 14 days. Pain medication: Percocet. Meloxicam (stop if stomach upset). Prednisone. Tylenol (no more than 3,000 mg in 24 hours) Patient has followup appointment with Dr. Michel in 3 weeks. DS: Summary Hospital Course Reason for hospitalization: Total knee arthroplasty Hospital Course: Patient tolerated procedure well. Has had initial PT/OT. Status at Discharge Functional status at discharge: uses cane/walker Overall status at discharge: patient is progressing back to baseline Time Spent with Patient Time attestation: Total time spent providing and/or coordinating discharge services: Exam Narrative: Pleasant 76-year-old overweight female. Resting comfortably in chair. Alert and oriented x3. No acute distress. Wearing compression socks bilaterally. Dressing intact without drainage on Mepilex. Mild swelling. No ecchymosis. No erythema. No hematoma. Range of motion limited due to pain. Calf nontender. Neurologic status intact. No varicosities. Distal pulses palpable. Discharge Plan Discharge Patient Disposition: Home, Self-Care Discharge Instructions: See green instructions sheets. Patient Instructions: Precautions after Total Joint Replacement Surgery (DC), Knee Replacement (DC) Follow-up/Referrals: Coretta Molina PA [Physician Lang Interpreter] - Discharge Medications: New aspirin 81 mg tablet,delayed release (DR/EC) 81 mg PO BID 14 Days Qty: 28 0RF meloxicam 15 mg tablet 15 mg PO DAILY Qty: 30 0RF Rx Instructions: Cut in half. Take 1/2 in morning and 1/2 at night. Take with food. Stop if stomach upset. prednisone 5 mg tablet 5 mg PO DAILY 21 Days Qty: 21 0RF oxycodone-acetaminophen 5-325 mg tablet 1 - 2 tablet PO Q4-6H MDD 6 PRN (Reason: pain) Qty: 30 0RF Continued pantoprazole 40 mg tablet,delayed release (DR/EC) 40 mg PO DAILY zolpidem 10 mg tablet 10 mg PO PRN PRN (Reason: insomnia) fexofenadine [Mckenzie Allergy] 180 mg Tablet 180 mg PO DAILY alprazolam [Xanax] 0.5 mg tablet 0.5 mg PO BID PRN (Reason: anxiety) Qty: 30 2RF cyclobenzaprine 10 mg tablet See Rx Instructions .ROUTE .COMPLEX PRN (Reason: muscle spasm) Qty: 90 0RF Rx Instructions: Take 1 tablet by mouth tid PRN; fluticasone propionate [Flonase Allergy Relief] 50 mcg/actuation spray,suspension 1 spray intranasal DAILY Qty: 16 1RF Rx Instructions: administer into each nostril atorvastatin 10 mg tablet 10 mg PO DAILY Qty: 90 1RF levothyroxine 75 mcg tablet See Rx Instructions .ROUTE .COMPLEX Qty: 90 1RF Dose Instruction: TAKE 1 TABLET BY MOUTH DAILY Rx Instructions: TAKE 1 TABLET BY MOUTH DAILY hydroxyzine HCl 25 mg tablet 25 mg PO BID PRN (Reason: itching) Qty: 30 0RF Held Excedrin Tension Headache 500-65 mg Tablet 1 tablet PO Q12H PRN (Reason: Headache) Hold Instructions: Resume on 04/05/22. Stop while taking Meloxicam.
[2022-03-08 09:20] VITALS: BP 132/82; PULSE 82; RESP 16; TEMP 36.6; O2SAT 94
--- NOTE | 2022-03-08 12:54 | WPDANESPN ---
Anes - Prog Note Post-Op Date/Time: 03/08/22 12:54 Cardiovascular status: normal Respiratory status: normal Airway patency: baseline Mental status: baseline Post-Op hydration status: normal Vital Signs: Last Vital Signs Temp 98 F 03/08/22 09:20 Pulse 82 03/08/22 09:20 Resp 16 03/08/22 09:20 BP 132/82 03/08/22 09:20 Pulse Ox 94 03/08/22 09:20 O2 Del Method Room Air 03/08/22 09:52 O2 Flow Rate 8 03/07/22 14:25 Pain Score (VAS): 08/15 I/O: Intake & Output 03/07/22 03/08/22 03/08/22 23:59 07:59 15:59 Intake Total 690 1300 240 Output Total 800 Balance 690 500 240 Post-procedural complaints: none Patient Feedback: Patient satisfied with anesthetic care.
== END 2022-03-08 13:00 | disposition home or self-care (01) ==
LOC: ANHSURGERY 09:29 → ANH2MED 15:34
PROVIDERS: PCP Emergency Medicine; Visit Provider Orthopaedic Surgery
PROC: (CPT 27447; principal; 2022-03-07 11:00)
DX: M17.12 Unilateral primary osteoarthritis, left knee (principal); G89.18 Other acute postprocedural pain; E78.5 Hyperlipidemia, unspecified; E03.9 Hypothyroidism, unspecified; G62.9 Polyneuropathy, unspecified; K21.9 Gastro-esophageal reflux disease without esophagitis; F41.9 Anxiety disorder, unspecified; M48.061 Spinal stenosis, lumbar region without neurogenic claudication
CPT/HCPCS: 27447; 64447; 73560; 97110; 97116; 97161; 97165; 97530; 97535; A9270; C1713; C1776; J0131; J0171; J0690; J1100; J1170; J1885; J2270; J2405; J2704; J2795; J3010; J7030; J7120; J7512

== ENCOUNTER 2022-03-24 14:22 | Outpatient (CLI) | payer MEDICARE, SELFPAY ==
[2022-03-24 14:53] LABS: Alanine Aminotransferase 21 U/L (6-35); Albumin Level 4.3 g/dL (3.5-5.1); Alkaline Phosphatase 80 U/L (38-126); Anion Gap 10 mmol/L (8-16); Aspartate Amino Transferase 29 U/L (14-36); Bilirubin,Total 0.6 mg/dL (0.2-1.3); Blood Urea Nitrogen 22 mg/dL (7-17); Calcium 8.9 mg/dL (8.4-10.2); Carbon Dioxide 27 mmol/L (22-30); Chloride 97 mmol/L (98-107); Cholesterol 173 mg/dL (0-200); Estimated Glomerular Filt Rate > 60; Glucose 94 mg/dL (65-110); HDL Direct 82 mg/dL; Potassium 4.4 mmol/L (3.4-5.0); Sodium 134 mmol/L (137-145); Triglycerides 140 mg/dL (<150)
[2022-03-24 15:12] LABS: LDL Cholesterol Direct < 30 mg/dL
== END 2022-03-24 14:23 | disposition home or self-care (01) ==
PROVIDERS: PCP Emergency Medicine; Visit Provider Emergency Medicine
DX: Z13.6 Encounter for screening for cardiovascular disorders (principal); E78.2 Mixed hyperlipidemia
CPT/HCPCS: 36415; 80053; 80061

== ENCOUNTER 2022-05-16 00:45 | Day surgery (SDC) | payer MEDICARE, SELFPAY ==
[2022-05-11 09:26] VITALS: BMI 30.5
--- NOTE | 2022-05-11 09:31 | PC.NURSE ---
Report to the Outpatient Waiting Room, entrance under the green pavilion located off [facility], at time ___1130____ on date __05/16/22 . OR Time: _1330 (1:30 PM) . Time changes happen often and if your time is changed the preop area will call you the afternoon before. - You and your visitor will be asked to self-screen and do not enter if you have any COVID symptoms. - Only one visitor and NO children visitors are allowed at this time. - The patient visitor is requested to leave or wait in car when not with patient due to restrictions. - A mask is required within the hospital. Patients may have clear liquids (water, carbonated beverages, clear teas, apple juice) until 3 hours prior to surgery (1030 AM) with a maximum of 20 ounces. - No food from midnight until time of surgery - Infants may have breast milk until 4 hours before surgery, formula 6 hours prior to surgery. - Children will be allowed to drink immediately following surgery. If applicable, please bring a bottle or sippy cup to assist with drinking. Juice, water, soda, and popsicles are readily available. For infants on formula, please bring formula the day of surgery. Pacifiers are allowed. Take the following medications with a SIP of water the morning of surgery: _LEVOTHYROXINE & PAIN MEDS, ALPRAZOLAM, NASAL SPRAY IF NEEDED_ Medications to discontinue per physician N/A Date to take last dose Please no make-up, nail [place], hairspray, perfume, deodorant, or body powder the day of surgery. No jewelry (including any body piercings) or valuables the day of surgery, leave them at home. Please take a shower or bath the night before, or the morning of, surgery with an antibacterial soap. Wear comfortable, loose fitting clothing. Children are encouraged to wear pajamas. - Jewelry must be removed prior to entering the operating room. Rings and piercings that are not removed may be cut off. - The hospital will not accept responsibility for valuables. - Please leave all valuables, including medications, at home the day of surgery. If you are going home after surgery, a licensed regional refrigerated cdl truck driver must drive you home. - NO public transportation without another adult. - We recommend that an adult stay with you for 24 hours following discharge. - We also recommend that you do not drive, make important decision, drink alcoholic beverages, or take any drugs that were not prescribed by your health care provider for at least 24 hours after your discharge time. For Pediatric surgeries, we recommend two adults accompany the child home (only one inside the building at this time). Follow any additional instructions given to you from your surgeon. If you or anyone in your household have experienced Covid symptoms in the past week, please notify your surgeon or the nurse liaison at the phone number below for possible testing. Telephone instructions given to ____PT and asked if any additional questions and then verbalized understanding. Patient advised to call surgeon office or pre surgery nurse liaison [phone] if any additional questions.
[2022-05-16] VITALS (10 sets, daily range): BP systolic 93–172; BP diastolic 54–111; PULSE 59–95; RESP 14–18; TEMP 36.1–36.2; O2SAT 97–100
[2022-05-16] MEDS: LACTATED RINGERS 1,000 ML 30 ML IV CONT ×2 (12:20→14:55)
--- NOTE | 2022-05-16 12:49 | WPDANESEPPF ---
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 Patient Data Age: 76 Gender: F Height: 1.56 m Weight: 65.3 kg Last Vital Signs Temp 36.2 C L 05/16/22 12:33 Pulse 95 05/16/22 12:33 Resp 16 05/16/22 12:33 BP 153/80 H 05/16/22 12:33 Pulse Ox 97 05/16/22 12:33 O2 Del Method Room Air 05/16/22 12:33 Allergies Allergy/AdvReac Type Severity Reaction Status Date / Time vancomycin Allergy Unknown unknown-FAMILY Verified 05/16/22 11:48 REACTION Home Medications Medication Instructions Recorded Confirmed Type alprazolam 0.5 mg tablet (Xanax) 0.5 mg PO BID PRN anxiety #30 tabs 11/21/21 05/16/22 Rx atorvastatin 10 mg tablet 10 mg PO DAILY #90 tabs 01/03/22 05/16/22 Rx cyclobenzaprine 10 mg tablet See Rx Instructions .Route 01/03/22 05/16/22 Rx .COMPLEX PRN muscle spasm #90 tabs levothyroxine 75 mcg tablet See Rx Instructions .Route 01/10/22 05/16/22 Rx .COMPLEX #90 tabs fexofenadine 180 mg tablet 180 mg PO DAILY 02/23/22 05/16/22 History (Mckenzie Allergy) pantoprazole 40 mg tablet,delayed 40 mg PO DAILY 02/23/22 05/16/22 History release zolpidem 10 mg tablet 10 mg PO PRN PRN insomnia #30 tabs 03/31/22 05/16/22 Rx fluticasone propionate 50 See Rx Instructions .Route 05/01/22 05/16/22 Rx mcg/actuation nasal .COMPLEX #16 grams spray,suspension oxycodone-acetaminophen 5 mg-325 1 - 2 tablet PO Q4-6H PRN pain #30 05/12/22 05/16/22 Rx mg tablet tabs hydroxyzine HCl 25 mg tablet 25 mg PO BID PRN itching #30 tabs 05/15/22 05/16/22 Rx Patient hx anesthesia problems: none Family hx anesthesia problems: none Results Review: All pre-operative results and documents have been reviewed as part of the pre-operative evaluation. [facility] Past Medical History Medical History Anxiety Chronic GERD Hyperlipidemia Hypothyroidism (acquired) Hypothyroidism, unspecified Insomnia Overweight (BMI 25.0-29.9) Peripheral neuropathy Spinal stenosis Spinal stenosis at L4-L5 level Surgical History Surgical History (Updated 05/16/22 @ 12:49 by Jorge Escamilla MD) History of total knee arthroplasty Family History Family History Mother Diabetes mellitus Family history of cardiovascular disease Cerebrovascular accident Family history of arthritis Other Family history of type 2 diabetes mellitus Social History Social History Social History: Patient drinks 7.5oz of caffeine daily. Patient also exercises daily. Smoking status: Never smoker Second hand tobacco smoke exposure: No Additional smoking assessment comments: DENIES ANY TOBACCO USE Alcohol intake: never Substance use: never Substance use type: does not use Living arrangements: with family Additional living arrangements comments: PT LIVES WITH DAUGHTER (SCAR) & FAMILY Gender identity (if verbalized by the patient): Female Sexual Orientation (if Verbalized by the Patient): Straight or Heterosexual Spiritual care concerns: No Anes - Eval Final PreProcedure Day of Procedure 05/16/22 12:49 Patient weight: overweight Heart: regular rate and rhythm Lungs: clear to auscultation Airway: Mallampati scale class II Neurological: alert and oriented Last oral intake: >/= 8 hours ASA classification: III Emergent: no Anesthetic plan: proceed Anesthesia type and monitoring: general ETT and standard monitoring Results Review: All pre-operative results and documents have been reviewed as part of the pre-operative evaluation. Informed Consent: The patient's anesthetic plan and its attendant risks and benefits were discussed w
[2022-05-16] MEDS: KETOROLAC 15 MG/ML VIAL (*BKC) IV PUSH (12:50)
--- NOTE | 2022-05-16 13:24 | WPDHPUPDATE1 ---
History and Physical Update Update Date/Time: 05/16/22 13:24 History and Physical has been reviewed, including an updated exam of the patient. There are NO changes in the patient's condition. Risks, benefits, and alternatives have been discussed and questions answered. Patient agrees to proceed with procedure.
[2022-05-16] MEDS: fentaNYL CITRATE INJ (*CRX) 100 MCG/2 ML VIAL 25 MCG IV PUSH ×4 (14:14→14:30)
[2022-05-16] MEDS: diazePAM INJ (*CRX) 10 MG/2 ML SYRINGE 2.5 MG IV PUSH (14:38)
[2022-05-16] MEDS: oxyCODONE HCL (*CRX) 5 MG TAB IR PO (15:42)
--- NOTE | 2022-05-16 16:40 | W.PM.PROC2 ---
Procedure Note - Detailed Date of Procedure 05/16/22 Pre-op Diagnosis Contracture left total knee Post-op Diagnosis Same Procedure Performed Manipulation under anesthesia left total knee arthroplasty. Surgeon Levi Michel MD Anesthesia General Findings Moderate contracture improved significantly with manipulation. Description of Procedure The patient was given a general anesthetic with propofol. The knee was examined and gentle pressure was placed both in extension and later in flexion. Extension lag was about 5?. This perhaps was improved slightly. Pre procedure flexion was 85?. After gentle slow manipulation the knee was flexed to 115 easily and 125? with more pressure. Subtle coarse tissue releases were palpable laterally. Most of the release was felt to be gentle stretching of the soft tissues. No complications. Patient brought to the recovery room in stable condition. Complications No immediate complications Condition Stable Disposition PACU [facility] Billing Surgery - Charge Forward: Surgery Billing
== END 2022-05-16 16:38 | disposition home or self-care (01) ==
PROVIDERS: PCP Emergency Medicine; Visit Provider Orthopaedic Surgery
PROC: (CPT 27570; principal; 2022-05-16 13:30)
DX: M24.562 Contracture, left knee (principal); Z96.652 Presence of left artificial knee joint; E03.9 Hypothyroidism, unspecified; E78.5 Hyperlipidemia, unspecified; K21.9 Gastro-esophageal reflux disease without esophagitis; G62.9 Polyneuropathy, unspecified; F41.9 Anxiety disorder, unspecified
CPT/HCPCS: 27570; A9270; J1885; J2250; J2704; J3010; J3360; J7120

== ENCOUNTER 2022-07-04 11:05 | Outpatient (CLI) | payer MEDICARE, SELFPAY ==
[2022-07-04 11:47] LABS: Alanine Aminotransferase 27 U/L (6-35); Albumin Level 4.7 g/dL (3.5-5.1); Alkaline Phosphatase 106 U/L (38-126); Anion Gap 11 mmol/L (8-16); Aspartate Amino Transferase 33 U/L (14-36); Bilirubin,Total 0.6 mg/dL (0.2-1.3); Blood Urea Nitrogen 14 mg/dL (7-17); Calcium 9.1 mg/dL (8.4-10.2); Carbon Dioxide 25 mmol/L (22-30); Chloride 104 mmol/L (98-107); Cholesterol 213 mg/dL (0-200); Estimated Glomerular Filt Rate > 60; Glucose 91 mg/dL (65-110); HDL Direct 71 mg/dL; Sodium 140 mmol/L (137-145); Triglycerides 149 mg/dL (<150)
[2022-07-04 12:02] LABS: LDL Cholesterol Direct 48 mg/dL
== END 2022-07-04 11:06 | disposition home or self-care (01) ==
PROVIDERS: PCP Emergency Medicine; Visit Provider Emergency Medicine
DX: E78.5 Hyperlipidemia, unspecified (principal); E03.9 Hypothyroidism, unspecified
CPT/HCPCS: 36415; 80053; 80061; 84443

== ENCOUNTER 2022-08-29 13:52 | Outpatient (CLI) | payer MEDICARE, SELFPAY ==
[2022-08-29 14:25] LABS: Alanine Aminotransferase 29 U/L (6-35); Albumin Level 4.2 g/dL (3.5-5.1); Alkaline Phosphatase 106 U/L (38-126); Anion Gap 6 mmol/L (8-16); Aspartate Amino Transferase 31 U/L (14-36); Bilirubin,Total 0.7 mg/dL (0.2-1.3); Blood Urea Nitrogen 13 mg/dL (7-17); Calcium 9.1 mg/dL (8.4-10.2); Carbon Dioxide 28 mmol/L (22-30); Chloride 107 mmol/L (98-107); Cholesterol 160 mg/dL (0-200); Estimated Glomerular Filt Rate > 60; Glucose 90 mg/dL (65-110); HDL Direct 67 mg/dL; Sodium 141 mmol/L (137-145); Triglycerides 118 mg/dL (<150)
[2022-08-29 14:36] LABS: LDL Cholesterol Direct 33 mg/dL
[2022-08-29 14:55] LABS: Thyroid Stimulating Hormone 0.019 uIU/mL (0.465-4.680)
[2022-09-02 16:11] LABS: Vitamin D 1,25 (OH)2 Total 43 pg/mL (18-72); Vitamin D2 1,25 (OH)2 <8 pg/mL; Vitamin D3 1,25 (OH)2 43 pg/mL
== END 2022-08-29 13:53 | disposition home or self-care (01) ==
LOC: ANHLAB 13:55
PROVIDERS: PCP Emergency Medicine; Visit Provider Emergency Medicine
DX: E55.9 Vitamin D deficiency, unspecified (principal); E03.9 Hypothyroidism, unspecified
CPT/HCPCS: 36415; 80053; 80061; 82652; 84443

== ENCOUNTER 2022-10-14 13:20 | Outpatient (CLI) | payer MEDICARE, SELFPAY ==
[2022-10-14 14:14] LABS: Thyroid Stimulating Hormone < 0.015 uIU/mL (0.465-4.680)
== END 2022-10-14 13:21 | disposition home or self-care (01) ==
PROVIDERS: PCP Emergency Medicine; Visit Provider Emergency Medicine
DX: E03.9 Hypothyroidism, unspecified (principal)
CPT/HCPCS: 36415; 84443

== ENCOUNTER 2022-10-25 13:34 | Outpatient (CLI) | payer MEDICARE, SELFPAY ==
[2022-10-25 15:11] LABS: Thyroid Stimulating Hormone 0.447 uIU/mL (0.465-4.680)
== END 2022-10-25 13:35 | disposition home or self-care (01) ==
PROVIDERS: PCP Emergency Medicine; Visit Provider Emergency Medicine
DX: E03.9 Hypothyroidism, unspecified (principal)
CPT/HCPCS: 36415; 84443

== ENCOUNTER 2023-01-08 12:09 | Outpatient (CLI) | payer MEDICARE, SELFPAY ==
[2023-01-08 13:01] LABS: Alanine Aminotransferase 29 U/L (6-35); Alkaline Phosphatase 85 U/L (38-126); Anion Gap 5 mmol/L (8-16); Aspartate Amino Transferase 38 U/L (14-36); Bilirubin,Total 0.8 mg/dL (0.2-1.3); Blood Urea Nitrogen 14 mg/dL (7-17); Calcium 9.2 mg/dL (8.4-10.2); Carbon Dioxide 32 mmol/L (22-30); Chloride 102 mmol/L (98-107); Cholesterol 264 mg/dL (0-200); Estimated Glomerular Filt Rate > 60; Glucose 85 mg/dL (65-110); HDL Direct 109 mg/dL; Potassium 4.6 mmol/L (3.4-5.0); Sodium 139 mmol/L (137-145); Triglycerides 203 mg/dL (<150)
[2023-01-08 13:13] LABS: LDL Cholesterol Direct 57 mg/dL
[2023-01-12 00:18] LABS: Vitamin D 1,25 (OH)2 Total 56 pg/mL (18-72); Vitamin D2 1,25 (OH)2 <8 pg/mL; Vitamin D3 1,25 (OH)2 56 pg/mL
== END 2023-01-08 12:10 | disposition home or self-care (01) ==
PROVIDERS: PCP Emergency Medicine; Visit Provider Emergency Medicine
DX: E03.9 Hypothyroidism, unspecified (principal); E55.9 Vitamin D deficiency, unspecified; E78.2 Mixed hyperlipidemia
CPT/HCPCS: 36415; 80053; 80061; 82652; 84443

== ENCOUNTER 2023-01-11 14:13 | Outpatient (CLI) | payer MEDICARE, SELFPAY ==
--- NOTE | ~2023-01-11 | US_ITS ---
EXAMINATION: US thyroid DATE: 01/11/2023 15:09 INDICATION: Other specified abnormal findings of blood chemistry. TECHNIQUE: Multiple ultrasound images of the thyroid were obtained. COMPARISON: Ultrasound 06/20/2012 FINDINGS: The thyroid is absent. There is no abnormal tissue in the thyroidectomy bed. IMPRESSION: 1. Thyroidectomy. Reviewed, dictated and finalized at location A. IMPRESSION: 1. Thyroidectomy.
[2023-01-11 16:41] LABS: Free T4 Free Thyroxine 0.33 ng/mL (0.78-2.19)
[2023-01-15 13:23] LABS: Triiodothyronine T3 Free 1.1 pg/mL (2.3-4.2)
== END 2023-01-11 14:14 | disposition home or self-care (01) ==
PROVIDERS: Visit Provider Emergency Medicine
DX: R79.89 Other specified abnormal findings of blood chemistry (principal); R53.83 Other fatigue
CPT/HCPCS: 36415; 76536; 84439; 84481

== ENCOUNTER 2023-01-22 11:34 | Outpatient (CLI) | payer MEDICARE, SELFPAY | END 2023-01-22 11:35 | disposition home or self-care (01) | LOC: ANHLAB 11:36 | PROVIDERS: PCP Emergency Medicine; Visit Provider Emergency Medicine | DX: E03.9 Hypothyroidism, unspecified (principal) | CPT/HCPCS: 36415; 84443 ==

== ENCOUNTER 2023-01-24 16:04 | Outpatient (CLI) | payer MEDICARE, SELFPAY ==
--- NOTE | ~2023-01-24 | CT_ITS ---
Non-contrast CT scan of the Abdomen and Pelvis Clinical indication: Abdominal pain Technique: 2.5 mm axial scans were obtained through the abdomen and pelvis without intravenous or or al contrast. Dose reduction technique was used on this scan by utilizing automated exposure control a nd iterative reconstruction technique. The dose-length product (DLP) was 466.73 mGy-cm. Findings: Images through the lung bases reveal no abnormalities. There is no evidence of renal or ureteral calculi. The kidneys and the ureters are nondilated. The liver, spleen, pancreas, gallbladder, and adrenals appear normal. There are atherosclerotic calci fications of the aorta. There is no evidence of bowel obstruction. No evidence for appendicitis. Images through the pelvis were performed. There is no evidence of ascites or lymphadenopathy. Urinary bladder unremarkable. Patient is status post hysterectomy. No pelvic mass seen. Impression: No significant abnormality seen. Reviewed, dictated and finalized at [facility]. Impression: No significant abnormality seen.
== END 2023-01-24 16:05 | disposition home or self-care (01) ==
LOC: ANHIMG 16:06
PROVIDERS: PCP Emergency Medicine; Visit Provider Emergency Medicine
DX: R10.9 Unspecified abdominal pain (principal)
CPT/HCPCS: 74176

== ENCOUNTER 2023-03-12 14:45 | Outpatient (CLI) | payer MEDICARE, SELFPAY ==
--- NOTE | ~2023-03-12 | DEXA_ITS ---
Bone Density Report Name: MIGUEL WALLACE Age: 77 Sex: Female Ethnicity: White Date of : 1945 Indication: postmenopausal; screening for osteoporosis; height loss; inflammatory bowel disease; hysterectomy; Referring Provider: TOO VALADEZ Study: Bone densitometry was performed. Exam Date: March 12, 2023 Accession number: [id number] Bone Density: Region BMD T-score Z-score Classification AP Spine(L1-L4) 1.023 -0.2 2.3 Normal Femoral Neck (Left) 0.692 -1.4 0.7 Osteopenia Total Hip (Left) 0.857 -0.7 1.2 Normal Femoral Neck (Right) 0.757 -0.8 1.3 Normal Total Hip (Right) 0.862 -0.7 1.2 Normal Total Hip Mean 0.860 -0.7 1.2 Normal World Health Organization criteria for BMD impression classify patients as: Normal (T-score at or above -1.0), Osteopenia (T-score between -1.0 and -2.5), or Osteoporosis (T-score at or below -2.5). 10-year Fracture Risk(1): Major Osteoporotic Fracture 12% Hip Fracture 2.3% Reported Risk Factors: [place] (), Neck BMD=0.692, BMI=27.6 (1) FRAX(R) Version 3.08. Fracture probability calculated for an untreated patient. Fracture probability may be lower if the patient has received treatment. Clinical Information Provided by Patient: Has the following medical conditions: Inflammatory bowel diseases, Hysterectomy Patient maximum height was 63 Menopause Age: 39 No regular weight bearing exercise Drinks caffeinated beverages Onset of menses at age 16 Number of children 3 Impression: The patient has low bone mass, based on the Left Femoral Neck T-score. The patient has an estimated ten-year risk of hip fracture of 2.3% and an estimated ten-year risk of major fracture of 12%, based on the WHO FRAX algorithm. Discussion: BONE DENSITY IS LOW AT ONE OR MORE SKELETAL SITES. This patient's lowest T-score is low at one or more skeletal sites. It meets the World Health Organization's (WHO) criteria for ?low bone mass? (T-score between -1.0 and -2.5). The patient's 10-year risk of fracture as calculated by FRAX is less than the threshold where pharmacological therapy is recommended by the National Osteoporosis Foundation (NOF). However, all treatment decisions require clinical judgment and consideration of individual patient factors, including patient preferences, comorbidities, previous drug use, risk factors not captured in the FRAX model (e.g., frailty, falls, vitamin D deficiency, increased bone turnover, interval significant decline in bone density) and possible under or overestimation of fracture risk by FRAX. The patient should follow a healthful lifestyle (good nutrition with adequate calcium and vitamin D, and appropriate weight-bearing exercise). Follow-Up: Consider repeating this study in 2 to 3 years to reassess this patient's statu
--- NOTE | ~2023-03-12 | MM_ITS ---
EXAMINATION: MM screening [facility] BI w edilia HISTORY: Screening mammogram TECHNIQUE: Craniocaudal and mediolateral oblique 3-D tomosynthesis images were obtained and synthetic 2-D images were generated. CAD analysis was submitted and interpreted. COMPARISON: 11/24/2021, 05/07/2020, 09/19/2016 BREAST PARENCHYMAL COMPOSITION: The breasts are almost entirely fatty. FINDINGS: No suspicious mass, calcification, or architectural distortion are identified in either [place] ast to suggest malignancy. There has been no suspicious interval change. IMPRESSION: 1. No mammographic evidence of malignancy. 2. Recommend routine screening mammography in one year. BI-RADS Category 1: Negative Reviewed, dictated and finalized at location A.
== END 2023-03-12 14:46 | disposition home or self-care (01) ==
LOC: ANHIMG 14:46
PROVIDERS: PCP Emergency Medicine; Visit Provider Emergency Medicine
DX: Z12.31 Encounter for screening mammogram for malignant neoplasm of breast (principal); Z78.0 Asymptomatic menopausal state; M85.852 Other specified disorders of bone density and structure, left thigh
CPT/HCPCS: 77063; 77067; 77080

== ENCOUNTER 2023-04-13 16:11 | Outpatient (CLI) | payer MEDICARE, SELFPAY ==
[2023-04-13 17:01] LABS: Alanine Aminotransferase 23 U/L (6-35); Albumin Level 4.4 g/dL (3.5-5.1); Alkaline Phosphatase 64 U/L (38-126); Anion Gap 9 mmol/L (8-16); Aspartate Amino Transferase 28 U/L (14-36); Bilirubin,Total 0.4 mg/dL (0.2-1.3); Blood Urea Nitrogen 17 mg/dL (7-17); Carbon Dioxide 26 mmol/L (22-30); Chloride 108 mmol/L (98-107); Cholesterol 148 mg/dL (0-200); Estimated Glomerular Filt Rate > 60; Glucose 97 mg/dL (65-110); HDL Direct 60 mg/dL; Potassium 3.6 mmol/L (3.4-5.0); Sodium 143 mmol/L (137-145); Triglycerides 217 mg/dL (<150)
[2023-04-13 17:12] LABS: LDL Cholesterol Direct 38 mg/dL
[2023-04-13 17:29] LABS: Thyroid Stimulating Hormone 0.039 uIU/mL (0.465-4.680)
== END 2023-04-13 16:12 | disposition home or self-care (01) ==
PROVIDERS: PCP Emergency Medicine; Visit Provider Emergency Medicine
DX: E78.5 Hyperlipidemia, unspecified (principal); E55.9 Vitamin D deficiency, unspecified; E03.9 Hypothyroidism, unspecified
CPT/HCPCS: 36415; 80053; 80061; 82652; 84443

== ENCOUNTER 2023-05-31 12:56 | Outpatient (CLI) | payer MEDICARE, SELFPAY ==
[2023-05-31 15:34] LABS: Alanine Aminotransferase 33 U/L (6-35); Albumin Level 4.6 g/dL (3.5-5.1); Alkaline Phosphatase 88 U/L (38-126); Anion Gap 8 mmol/L (8-16); Aspartate Amino Transferase 40 U/L (14-36); Bilirubin,Total 0.8 mg/dL (0.2-1.3); Blood Urea Nitrogen 13 mg/dL (7-17); Calcium 8.9 mg/dL (8.4-10.2); Carbon Dioxide 25 mmol/L (22-30); Chloride 106 mmol/L (98-107); Cholesterol 176 mg/dL (0-200); Estimated Glomerular Filt Rate > 60; Glucose 133 mg/dL (65-110); HDL Direct 75 mg/dL; Potassium 4.2 mmol/L (3.4-5.0); Sodium 139 mmol/L (137-145); Triglycerides 154 mg/dL (<150)
[2023-05-31 15:45] LABS: LDL Cholesterol Direct 49 mg/dL
[2023-05-31 15:51] LABS: Vitamin D 25 Hydroxy 54.6 ng/mL
[2023-05-31 16:05] LABS: Thyroid Stimulating Hormone 0.277 uIU/mL (0.465-4.680)
== END 2023-05-31 12:57 | disposition home or self-care (01) ==
PROVIDERS: PCP Emergency Medicine; Visit Provider Emergency Medicine
DX: E55.9 Vitamin D deficiency, unspecified (principal); E89.0 Postprocedural hypothyroidism; E78.5 Hyperlipidemia, unspecified
CPT/HCPCS: 36415; 80053; 80061; 82306; 84443

== ENCOUNTER 2023-07-17 11:56 | Outpatient (CLI) | payer MEDICARE, SELFPAY | END 2023-07-17 11:57 | disposition home or self-care (01) | LOC: ANHLAB 12:00 | PROVIDERS: PCP Emergency Medicine; Visit Provider Emergency Medicine | DX: E89.0 Postprocedural hypothyroidism (principal) | CPT/HCPCS: 36415; 84443 ==

== ENCOUNTER 2023-08-09 11:33 | Emergency (ER) | payer MEDICARE, SELFPAY ==
[2023-08-09 11:35] VITALS: BP 163/79; PULSE 93; RESP 20; TEMP 36.3; O2SAT 99
--- NOTE | 2023-08-09 12:16 | ED.GENADULT ---
HPI - General Adult General Chief complaint: Ear Stated complaint: Ear pain Time Seen by Provider: 08/09/23 11:50 Source: patient Mode of arrival: ambulatory Limitations: no limitations History of Present Illness HPI narrative: This is a 77-year-old female who presents to the ED with chief complaint of left ear drainage beginning last night around 9:15 p.m. She has concern for possible ruptured TM. Reports that she had a new hearing aid placed a couple of weeks ago and they had to work on it 2 days ago. She denies any pain to the year. Only reports a little bit of pink drainage. Denies fevers, chills, nausea, vomiting, sore throat, recent illness. Related Data Home Medications Medication Instructions Recorded Confirmed fexofenadine 180 mg tablet 180 mg PO DAILY 02/23/22 04/17/23 ([facility] All[facility]) cholecalciferol (vitamin D3) 50 50 mcg PO DAILY 04/17/23 mcg (2,000 unit) capsule Allergies Allergy/AdvReac Type Severity Reaction Status Date / Time tramadol Allergy Severe Abdominal Verified 08/09/23 11:46 Pain vancomycin Allergy Unknown unknown-FAMILY Verified 08/09/23 11:46 REACTION Review of Systems Review of Systems: All systems as dictated in [facility] Past Medical History Medical History Anxiety Chronic GERD Hyperlipidemia Hypothyroidism (acquired) Hypothyroidism, unspecified Insomnia Overweight (BMI 25.0-29.9) Peripheral neuropathy Spinal stenosis Spinal stenosis at L4-L5 level Surgical History Surgical History History of total knee arthroplasty Status post surgical manipulation of knee joint (~05/16/22) Lt Knee Family History Family History Mother Diabetes mellitus Family history of cardiovascular disease Cerebrovascular accident Family history of arthritis Other Family history of type 2 diabetes mellitus Social History Social History Social History: Patient drinks 7.5oz of caffeine daily. Patient also exercises daily. Smoking status: Never smoker Second hand tobacco smoke exposure: No Additional smoking assessment comments: DENIES ANY TOBACCO USE Alcohol intake: never Substance use: never Substance use type: does not use Lack of Transportation: No Lack of Food: Never True Current Housing: I Have Housing Concerned About Future Housing: No Difficulty Paying Gas/Electric Bills: No Difficulty Paying for Meds: No Currently Unemployed: No Education: Bachelor's Degree Difficulty w/ Childcare or Family Care: Decline to Answer Living arrangements: with family Additional living arrangements comments: PT LIVES WITH DAUGHTER (SCAR) & FAMILY Occupation/Education: retired Gender identity (if verbalized by the patient): Female Sexual Orientation (if Verbalized by the Patient): Straight or Heterosexual Spiritual care concerns: No Exam Narrative: GENERAL: Well-appearing, well-nourished, and in no acute distress. HEAD: Normocephalic, atraumatic. EYES: PERRLA and EOMI. ENT: Left ear: Area of irritation and dried blood noted to the canal abutting the TM. The TM appears fully intact with no perforation. No active drainage Right ear: Benign Nares clear, no rhinorrhea or epistaxis. Mucous membranes moist. Oropharynx without tonsillar hypertrophy exudate or other lesions. NECK: Supple. No adenopathy or masses. CHEST: No respiratory distress. Clear to auscultation. No wheezes rales or rhonchi HEART: Regular rate and rhythm. No murmur heard. Normal peripheral pulses. ABDOMEN: Soft, nontender, nondistended, normal active bowel sounds. MSK: Normal range of motion. No edema. SKIN: Warm, dry, no rash. NEURO: Alert and oriented x3. No focal deficits. PSYCH: Normal mood and affect. Course Vital Signs Vit
== END 2023-08-09 12:50 | disposition home or self-care (01) ==
PROVIDERS: Emergency Provider Physician Assistant; PCP Emergency Medicine
DX: H60.92 Unspecified otitis externa, left ear (principal); K21.9 Gastro-esophageal reflux disease without esophagitis; E78.5 Hyperlipidemia, unspecified; E03.9 Hypothyroidism, unspecified; G62.9 Polyneuropathy, unspecified; E66.3 Overweight; Z68.27 Body mass index [BMI] 27.0-27.9, adult; F41.9 Anxiety disorder, unspecified; Z96.659 Presence of unspecified artificial knee joint
CPT/HCPCS: 99283

== ENCOUNTER 2023-08-30 16:12 | Outpatient (CLI) | payer MEDICARE, SELFPAY | END 2023-08-30 16:13 | disposition home or self-care (01) | LOC: ANHLAB 16:15 | PROVIDERS: PCP Emergency Medicine; Visit Provider Emergency Medicine | DX: E03.9 Hypothyroidism, unspecified (principal) | CPT/HCPCS: 36415; 84443 ==

== ENCOUNTER 2023-10-17 12:27 | Outpatient (CLI) | payer MEDICARE, SELFPAY ==
[2023-10-17 13:06] LABS: Alanine Aminotransferase 19 U/L (6-35); Albumin Level 4.4 g/dL (3.5-5.1); Alkaline Phosphatase 76 U/L (38-126); Anion Gap 7 mmol/L (8-16); Aspartate Amino Transferase 27 U/L (14-36); Bilirubin,Total 0.7 mg/dL (0.2-1.3); Blood Urea Nitrogen 12 mg/dL (7-17); Calcium 9.4 mg/dL (8.4-10.2); Carbon Dioxide 24 mmol/L (22-30); Chloride 108 mmol/L (98-107); Cholesterol 143 mg/dL (0-200); Estimated Glomerular Filt Rate > 60; Glucose 91 mg/dL (65-110); HDL Direct 84 mg/dL; Potassium 3.8 mmol/L (3.4-5.0); Sodium 139 mmol/L (137-145); Triglycerides 138 mg/dL (<150)
[2023-10-17 13:18] LABS: LDL Cholesterol Direct 37 mg/dL
[2023-10-17 13:32] LABS: Vitamin D 25 Hydroxy 50.3 ng/mL
[2023-10-17 13:37] LABS: Thyroid Stimulating Hormone 0.644 uIU/mL (0.465-4.680)
== END 2023-10-17 12:28 | disposition home or self-care (01) ==
LOC: ANHLAB 12:30
PROVIDERS: PCP Emergency Medicine; Visit Provider Emergency Medicine
DX: E55.9 Vitamin D deficiency, unspecified (principal); E89.0 Postprocedural hypothyroidism; E78.5 Hyperlipidemia, unspecified
CPT/HCPCS: 36415; 80053; 80061; 82306; 84443

== ENCOUNTER 2024-01-30 11:20 | Outpatient (CLI) | payer MEDICARE, SELFPAY ==
[2024-01-30 11:53] LABS: Alanine Aminotransferase 15 U/L (6-35); Albumin Level 4.7 g/dL (3.5-5.1); Alkaline Phosphatase 66 U/L (38-126); Anion Gap 5 mmol/L (4-12); Aspartate Amino Transferase 24 U/L (14-36); Bilirubin,Total 0.7 mg/dL (0.2-1.3); Blood Urea Nitrogen 18 mg/dL (7-17); Calcium 9.8 mg/dL (8.4-10.2); Carbon Dioxide 30 mmol/L (22-30); Chloride 107 mmol/L (98-107); Cholesterol 182 mg/dL (0-200); Estimated Glomerular Filt Rate > 60; Glucose 85 mg/dL (65-110); HDL Direct 81 mg/dL; Potassium 4.7 mmol/L (3.4-5.0); Sodium 142 mmol/L (137-145); Triglycerides 144 mg/dL (<150)
[2024-01-30 12:04] LABS: LDL Cholesterol Direct 53 mg/dL
[2024-01-30 12:18] LABS: Vitamin D 25 Hydroxy 40.8 ng/mL
== END 2024-01-30 11:21 | disposition home or self-care (01) ==
LOC: ANHLAB 11:24
PROVIDERS: PCP Emergency Medicine; Visit Provider Emergency Medicine
DX: E78.5 Hyperlipidemia, unspecified (principal); E89.0 Postprocedural hypothyroidism; E55.9 Vitamin D deficiency, unspecified
CPT/HCPCS: 36415; 80053; 80061; 82306; 84443

== ENCOUNTER 2024-03-18 11:52 | Outpatient (CLI) | payer MEDICARE, SELFPAY ==
--- NOTE | ~2024-03-18 | XR_ITS ---
XR hip RT min 2V 03/18/2024 12:18 INDICATION: Right hip pain PROCEDURE: 2 views right hip COMPARISON: 09/05/2020 FINDINGS: Fracture, dislocation or subluxation is not identified. Mild osteoarthritis of the right hi p. The soft tissues appear within normal limits. No foreign bodies are identified. IMPRESSION: 1: Mild osteoarthritis of the right hip.No significant interval change. Reviewed, dictated and finalized at location B.
== END 2024-03-18 11:53 | disposition home or self-care (01) ==
PROVIDERS: PCP Emergency Medicine; Visit Provider Anesthesiology Pain Medicine
DX: M16.11 Unilateral primary osteoarthritis, right hip (principal)
CPT/HCPCS: 73502

== ENCOUNTER 2024-06-07 11:49 | Outpatient (CLI) | payer MEDICARE, SELFPAY ==
[2024-06-07 12:19] LABS: Alanine Aminotransferase 14 U/L (6-35); Albumin Level 4.5 g/dL (3.5-5.1); Alkaline Phosphatase 57 U/L (38-126); Anion Gap 10 mmol/L (4-12); Aspartate Amino Transferase 26 U/L (14-36); Bilirubin,Total 0.4 mg/dL (0.2-1.3); Blood Urea Nitrogen 18 mg/dL (7-17); Calcium 9.3 mg/dL (8.4-10.2); Carbon Dioxide 28 mmol/L (22-30); Chloride 103 mmol/L (98-107); Cholesterol 175 mg/dL (0-200); Estimated Glomerular Filt Rate > 60; Glucose 85 mg/dL (65-110); HDL Direct 70 mg/dL; Potassium 4.1 mmol/L (3.4-5.0); Sodium 141 mmol/L (137-145); Triglycerides 165 mg/dL (<150)
[2024-06-07 12:46] LABS: Vitamin D 25 Hydroxy 32.1 ng/mL
[2024-06-07 12:55] LABS: LDL Cholesterol Direct < 30 mg/dL
== END 2024-06-07 11:50 | disposition home or self-care (01) ==
PROVIDERS: PCP Emergency Medicine; Visit Provider Emergency Medicine
DX: E78.5 Hyperlipidemia, unspecified (principal); E55.9 Vitamin D deficiency, unspecified; E89.0 Postprocedural hypothyroidism
CPT/HCPCS: 36415; 80053; 80061; 82306; 84443

== ENCOUNTER 2024-10-14 15:34 | Outpatient (CLI) | payer MEDICARE, SELFPAY ==
[2024-10-14 16:27] LABS: Alanine Aminotransferase 29 U/L (6-35); Albumin Level 4.5 g/dL (3.5-5.1); Alkaline Phosphatase 78 U/L (38-126); Anion Gap 12 mmol/L (4-12); Aspartate Amino Transferase 32 U/L (14-36); Bilirubin,Total 0.4 mg/dL (0.2-1.3); Blood Urea Nitrogen 15 mg/dL (7-17); Calcium 9.2 mg/dL (8.4-10.2); Carbon Dioxide 23 mmol/L (22-30); Chloride 107 mmol/L (98-107); Estimated Glomerular Filt Rate > 60; Glucose 138 mg/dL (65-110); Potassium 3.6 mmol/L (3.4-5.0); Sodium 142 mmol/L (137-145)
[2024-10-14 17:14] LABS: Vitamin D 25 Hydroxy 40.4 ng/mL
--- OUTSIDE RECORDS SUMMARY | 2024-10-14 17:39 | XMS_ITS | Referral Summary ---
Author Organization [facility] Address [facility] [place] [address] Care Team Providers Care Plate And Weld Inspector Name Role Phone Melo Daugherty MD Primary Care Provide r Allergies Active Allergy Reactions Criticality Noted Date Comments Hydrocodone-Acetamino phen Nausea only Low 11/25/2023 Nausea Iodinated Contrast Media Other (See comments) Low Reaction: FLUSHING SKIN, Pollen Extracts Other (See comments) Low Reaction: WATERY EYE, TEARING, Tramadol Hcl Nausea only Low 11/25/2023 Nausea Medications fexofenadine (MARCELLE) 60 mg tablet take 1 tablet by oral route 2 times every day 0 3 Active cyclobenzaprine (FLEXERIL) 10 mg tablet take 1 tablet by oral route 2 times every day 0 3 Active zolpidem (AMBIEN) 5 mg tablet take 2 tablet by oral route every day at bedtime [address] (PROTONIX) 40 mg EC tablet Take 1 tablet (40 mg total) by mouth 2 (two) times a day Active ALPRAZolam (XANAX) 0.5 mg tablet Take 1 tablet (0.5 mg total) by mouth 2 (two) times a day as needed for anxiety Active hydrOXYzine (ATARAX) 25 mg tablet Take 1 tablet (25 mg total) by mouth 2 (two) times a day as needed for itching Active hydrALAZINE (APRESOLINE) 10 mg tabletIndications :hypertension Take 1 tablet (10 mg total) by mouth 2 (two) times a day Active atorvastatin (LIPITOR) 10 mg tablet Take 1 tablet (10 mg total) by mouth daily Active levothyroxine (Synthroid) 88 mcg tablet Take 1 tablet (88 mcg total) by mouth dealer development manager before breakfast 4 Active alendronate 70 mg tablet, effervescent Take 70 mg by mouth once a week Active fluticasone propionate (FLONASE) 50 mcg/actuation nasal spray Administer 1 spray into each nostril daily Active dicyclomine (BENTYL) 20 mg tablet Active linaCLOtide (Linzess) 145 mcg capsule Active meloxicam (MOBIC) 7.5 mg tablet 1 tablet (7.5 mg total) daily 6 Active predniSONE (DELTASONE) 20 mg tablet Take 1 tablet (20 mg) by mouth daily 4 Active Active Problems Problem Noted Date Diagnosed Date Tremor 08/22/2023 Assessment & Plan (08/22/2023 9:31 AM SCROLL SAW OPERATOR): Ms. Jose Guadalupe Gutierrez is a 77 year old woman who presents for evaluation of tremor, which she first noticed in January 2023. Of note, during 2022, she and her PCP have been working on controlling her thyroid levels as they have been erratic in the last year. Her last TSH was 24.7 in mid July 2023. Her exam is remarkable for a high frequency high amplitude right hand tremor which is present at rest but becomes more pronounced with posture. There is also some element of action tremor but no obvious intention tremor. She has normal tone but some bradykinesia. Overall, her new tremor is most likely related to thyroid dysregulation. She will benefit from stable thyroid hormone levels for 6 months and we can re-evaluate her tremor at that point. There is also a possibility that an underlying essential tremor has been unmasked by her thyroid dysregulation. She does have some evidence of Parkinsonism which we will monitor on subsequent exams. She will see us again in 6 months. We will need to get a video at her next visit as they are unable to take her in today. Social History Tobacco Use Types Packs/Day Years Used Date Smoking Tobacco: Former Tobacco Cessation:Counseling Given: Not Answered Alcohol Use Standard Drinks/Week Comments No 0 (1 standard drink = 0.6 oz pur e alcohol) Comments Unknown Sex and Gender Information Value Date Recorded Sex Assigned at Not on file Legal Sex Female 1:12 AM SCROLL SAW OPERATOR Gender Identity Not on file Sexual Orientation Not on file Last Filed Vital Signs Vital Sign Reading Time Taken Comments Blood Pressure 156/87 11/25/2023 11:10 AM CDT Pulse 90 11/25/2023 11:10 AM CDT Temperature 36.9 C (98.4 F) 11/25/2023 11:10 AM CDT Respiratory Rate 18 11/25/2023 11:10 AM CDT Oxygen Saturation 98% 11/25/2023 11:10 AM CDT Inhaled Oxygen Concentration - - Weight 65.8 kg (145 lb) 11/25/2023 11:10 AM CDT Height 154.9 cm (5' 1 ) 11/25/2023 11:10 AM CDT Body Mass Index 27.4 11/25/2023 11:10 AM CDT Plan of Treatment Not on file Insurance MEDICARE COMMERCIAL GENERIC MEDICARE [employer] SENIOR SUPPLEMENT Care Teams Plate And Weld Inspector Relationship Specialty Start Date End Date Melo Daugherty MD [address] [place] [address] PCP - General 01/31/13
--- OUTSIDE RECORDS SUMMARY | 2024-10-14 17:39 | XMS_ITS | Patient Health Summary ---
Author Organization [facility] Address [address] [place] [address] Care Team Providers Care Model Builder Name Role Phone Unavailable Primary Care Provider Unavailabl e Note from [facility],non-owned Affiliates and Associated Physician Practices is amultiple site organization consisting of ambulatory clinics and hospital sitesin [place], [place], [place] and [place]. This disclosure is being madepursuant to the Care Everywhere program and may not contain all information available regarding this patient. Last updated 18.[facility] Allergies No known active allergies Medications * Be aware that medications may not be up to date on this document. Alwaysverify current medications with the patient. * LEVOTHYROXINE 10 MCG/ML PO CMPD SOLN (SYNTHROID) SOLN * Fexofenadine HCl (MARCELLE ALLERGY PO) * pantoprazole (PROTONIX) 40 MG packet Take 40 mg by mouth once daily * cyclobenzaprine (FLEXERIL) 10 MG tablet Take 10 mg by mouth 3 times daily as needed for Muscle Spasms * Zolpidem Tartrate (ZOLPIDEM PO) Active Problems No known active problems Social History Tobacco Use Types Packs/Day Years Used Date Smoking Tobacco: Never Smokeless Tobacco: Never Alcohol Use Standard Drinks/Week Comments Yes 0 (1 standard drink = 0.6 oz pur e alcohol) Sex and Gender Information Value Date Recorded Sex Assigned at Not on file Gender Identity Not on file Sexual Orientation Not on file Last Filed Vital Signs Vital Sign Reading Time Taken Comments Blood Pressure 142/88 08/10/2019 11:12 AM PRIMER INSPECTOR Pulse 90 08/10/2019 11:12 AM PRIMER INSPECTOR Temperature 37.4 C (99.3 F) 08/10/2019 11:12 AM PRIMER INSPECTOR Respiratory Rate 18 08/10/2019 11:12 AM PRIMER INSPECTOR Oxygen Saturation 96% 08/10/2019 11:12 AM PRIMER INSPECTOR Inhaled Oxygen Concentration - - Weight 66.7 kg (147 lb) 08/10/2019 11:12 AM PRIMER INSPECTOR Height 158.8 cm (5' 2.5 ) 08/10/2019 11:12 AM CS T Body Mass Index 26.46 08/10/2019 11:12 AM PRIMER INSPECTOR Procedures * STREP A SCREEN - POINT OF CARE (AMB) STL(Performed 08/10/2019) Performed for Viral upper respiratory tract infection * INFLUENZA A+B - POINT OF CARE (AMB)(Performed 08/10/2019) Performed for Viral upper respiratory tract infection Results * STREP A SCREEN - POINT OF CARE (AMB) STL (08/10/2019) Strep A Rapid POCT Negative Negative Strep A Internal Control Present Lot # [id number] Expiration Date 01/03/2021 Throat ENTIRE THROAT (SURFACE REGION OF NECK) / Unknown 08/10/2019 Jose Manuel Roe ADJUNCT PSYCHOLOGY PROFESSOR-DELIVERY SPECIALIST LAB - POINT OF CARE ORDERABLES * INFLUENZA A+B - POINT OF CARE (AMB) (08/10/2019) Influenza A Antigen Rapid Negative Negative Influenza B Antigen Rapid Negative Negative Influenza Internal Control present NEGATIVE - POSITIVE Influenza Lot Number [id number] Influenza Expiration Date Other NASOPHARYNGEAL SWAB / Unknown 08/10/2019 Jose Manuel Roe ADJUNCT PSYCHOLOGY PROFESSOR-DELIVERY SPECIALIST LAB - POINT OF CARE ORDERABLES"
--- OUTSIDE RECORDS SUMMARY | 2024-10-14 17:39 | XMS_ITS | Clinical Summary ---
Author Organization [facility] Address [facility] [place] [address] Care Team Providers Care Assembly Department Supervisor Name Role Phone Melo Daugherty MD Primary [...] 1 tablet (88 mcg total) by mouth tool technician before breakfast 4 Active alendronate 70 mg [...] 08/22/2023 Assessment & Plan (08/22/2023 9:31 AM PRESTRESSED CONCRETE LABORER): Ms. Jose Guadalupe Gutierrez is a 77 [...] are unable to take her in today. Surgical History Surgery Date Site/Laterality Comments [place] TOTAL THYROID LOBEC UNI W/CONTRALAT STOT LOBEC Thyroid Surgery Arnold-Thyroidectomy - (Added by Conv) Medical History Medical History Date Comments Hx Other Medical thyroid surgery Family History Medical History Relation Name Comments Diabetes Mother Diabetes Mellit us - (Added by Conv) Heart disease Mother Heart Disease - (Added by Conv) Hypothyroidism Mother Family histor y of hypothyroidism - (Added by Conv) COPD Other Family history of chronic obstructive pulmonary disease - (Added by Conv) Diabetes Other Family history of Diabetes mellitus; Heart disease Other Family history of Heart disease; Heart failure Other Family history of congestive heart failure - (Added by Conv) Relation Name Status Comments Mother Other Social History Tobacco Use Types Packs/Day Years Used Date Smoking Tobacco: Former Tobacco Cessation:Counseling Given: Not Answered Alcohol Use Standard Drinks/Week Comments No 0 (1 standard drink = 0.6 oz pur e alcohol) Comments Unknown Sex and Gender Information Value Date Recorded Sex Assigned at Not on file Legal Sex Female 1:12 AM PRESTRESSED CONCRETE LABORER Gender Identity Not on file Sexual Orientation Not on file Obstetrics History Last Filed Vital Signs Vital Sign Reading [...] 11/25/2023 11:10 AM CDT Plan of Treatment Health Maintenance Due Date Last Done Comments Depression Screening 1945 Fall Risk Assessment 1945 Hepatitis C Screening 1945 Osteoporosis Screening-Bone Density Scan 1945 DTaP/Tdap/Td Vaccine (1 - Tdap) 1957 Hepatitis B Screening 1964 Pneumococcal vaccine 65+ (1 of 1 - PCV) 1996 Zoster Vaccine (1 of 2) 1996 Well Visit 65+ 2011 Influenza Vaccine (#1) 2024 05/06/2016 Insurance MEDICARE COMMERCIAL GENERIC MEDICARE [employer] SENIOR SUPPLEMENT Care Teams Assembly Department Supervisor Relationship Specialty Start Date End Date Melo Daugherty MD [address] [place] [address] PCP - General 01/31/13
--- OUTSIDE RECORDS SUMMARY | 2024-10-14 17:39 | XMS_ITS | Clinical Summary ---
Author Organization [facility] Address [address] [place] [address] Care Team Providers Care Television Station Manager Name Role Phone Melo Daugherty MD Primary Care Provider [phone] Social History Tobacco Use Types Packs/Day Years Used Date Smoking Tobacco: Never Assessed Comments Unknown Sex and Gender Information Value Date Recorded Sex Assigned at Not on file Legal Sex Female 9:21 PM CDT Gender Identity Not on file Sexual Orientation Not on file Plan of Treatment Health Maintenance Due Date Last Done Comments Hepatitis C 1963 DTaP, Tdap and Td Vaccines ( 1 - Tdap) 1965 Zoster Vaccines (1 of 2) 1996 Annual Medicare Wellness Visit 2011 Dexa Scan (General) 2011 Pneumococcal Vaccine: 65+ Ye ars (1 of 1 - PCV) 2011 RSV Immunization or 60+ Years (1 - 1-dose 75+ series) 2021 COVID-19 Vaccine Completed 05/12/2024 Influenza Adult Completed 05/12/2024 Meningococcal B Vaccine Aged Out No l onger eligible based on patient's age to complete this topic Meningococcal Vaccine Aged Out No ruddy jenny eligible based on patient's age to complete this topic RSV Immunizations Under 20 Months Aged Out No longer eligible based on patient's age to complete this topic Insurance MEDICARE [employer] Care Teams Television Station Manager Relationship Specialty Start Date End Date Melo Daugherty MD [address] [address] PCP - General INTERNAL MEDICINE 02/21/19
--- OUTSIDE RECORDS SUMMARY | 2024-10-14 17:39 | XMS_ITS | Referral Summary ---
Author Organization [facility] Address [address] [place] [address] Care Team Providers Care Cylinder Loader Name Role Phone Unavailable Primary Care Provider Unavailabl e Source Comments [facility] [employer] [employer],non-owned Affiliates and Associated Physician Practices is amultiple site organization consisting of ambulatory clinics and hospital sitesin [place], [place], [place] and [place]. This disclosure is being madepursuant to the Care Everywhere program and may not contain all information available regarding this patient. Last updated 18.[facility] Allergies No known active allergies Medications * Be aware that medications may not be up to date on this document. Alwaysverify current medications with the patient. Medication Sig Dispensed Refills Start Date End Date Status LEVOTHYROXINE 10 MCG/ML PO CMPD SOLN (SYNTHROID) SOLN Active Fexofenadine HCl (MARCELLE ALLERGY PO) Acti ve pantoprazole (PROTONIX) 40 MG packet Take 40 mg by mouth once daily Active cyclobenzaprine (FLEXERIL) 10 MG tablet Take 10 mg by mouth 3 times daily as needed for Muscle Spasms Active Zolpidem Tartrate (ZOLPIDEM PO) Active Active Problems No known active problems Social [...] Comments Blood Pressure 142/88 08/10/2019 11:12 AM OIL RAG WASHER Pulse 90 08/10/2019 11:12 AM OIL RAG WASHER Temperature 37.4 C (99.3 F) 08/10/2019 11:12 AM OIL RAG WASHER Respiratory Rate 18 08/10/2019 11:12 AM OIL RAG WASHER Oxygen Saturation 96% 08/10/2019 11:12 AM OIL RAG WASHER Inhaled Oxygen Concentration - - Weight 66.7 kg (147 lb) 08/10/2019 11:12 AM OIL RAG WASHER Height 158.8 cm (5' 2.5 ) 08/10/2019 11:12 AM CS T Body Mass Index 26.46 08/10/2019 11:12 AM OIL RAG WASHER Plan of Treatment Not on file
--- OUTSIDE RECORDS SUMMARY | 2024-10-14 17:39 | XMS_ITS | Clinical Summary ---
Author Organization [facility] Address [address] [place] [address] Care Team Providers Care Garment Parts Cutter Machine Name Role Phone Unavailable Primary Care Provider Unavailabl e Source Comments [facility],non-owned Affiliates and Associated Physician Practices is amultiple site organization consisting of ambulatory clinics and hospital sitesin [place], [place], [place] and [place]. This disclosure is being madepursuant to the Care Everywhere program and may not contain all information available regarding this patient. Last updated 18.[employer] Allergies No known active allergies Medications * [...] Comments Blood Pressure 142/88 08/10/2019 11:12 AM MUSIC ARTIST Pulse 90 08/10/2019 11:12 AM MUSIC ARTIST Temperature 37.4 C (99.3 F) 08/10/2019 11:12 AM MUSIC ARTIST Respiratory Rate 18 08/10/2019 11:12 AM MUSIC ARTIST Oxygen Saturation 96% 08/10/2019 11:12 AM MUSIC ARTIST Inhaled Oxygen Concentration - - Weight 66.7 kg (147 lb) 08/10/2019 11:12 AM MUSIC ARTIST Height 158.8 cm (5' 2.5 ) 08/10/2019 11:12 AM CS T Body Mass Index 26.46 08/10/2019 11:12 AM MUSIC ARTIST Plan of Treatment Health Maintenance Due Date Last Done Comments BONE DENSITY TESTING 1945 MEDICARE AWV 12 MONTHS 1945 HEPATITIS C SCREENING 08/25/1964 DTAP/TDAP/TD VACCINES (1 - Tdap) 1965 PNEUMOCOCCAL VACCINE 50+ (1 of 1 - PCV) 1996 ZOSTER VACCINE (1 of 2) 1996 Respiratory Syncytial Virus (RSV) Vaccine Pt: or over 60 yrs (1 - 1-dose 75+ series) 2021 COVID-19 VACCINE ( - 2023-2 5 season) 2024 INFLUENZA VACCINE (#1) 2024 DEPRESSION SCREENING 08/06/2024 HEPATITIS B VACCINE Aged Out No longe r eligible based on patient's age to complete this topic HIB VACCINE Aged Out No longer eligi ble based on patient's age to complete this topic HPV VACCINE Aged Out No longer eligi ble based on patient's age to complete this topic MENINGOCOCCAL (Group B) VACCINE Aged Out No longer eligible based on patient's age to complete this topic MENINGOCOCCAL VACCINE Aged Out No ruddy jenny eligible based on patient's age to complete this topic
== END 2024-10-14 15:35 | disposition home or self-care (01) ==
LOC: ANHLAB 15:40
PROVIDERS: PCP Emergency Medicine; Visit Provider Emergency Medicine
DX: E03.9 Hypothyroidism, unspecified (principal); E78.5 Hyperlipidemia, unspecified; E55.9 Vitamin D deficiency, unspecified
CPT/HCPCS: 36415; 80053; 82306; 84443

== ENCOUNTER 2025-01-21 13:58 | Outpatient (CLI) | payer MEDICARE, SELFPAY ==
--- NOTE | ~2025-01-21 | XR_ITS ---
HISTORY: Z96.652 - Presence of left artificial knee joint COMPARISON: 01/28/2024 TECHNIQUE: 3 views of the left knee were performed FINDINGS: Post left total knee arthroplasty with patellar resurfacing. Both the femoral and tibial components are in good, unchanged from prior. Ossification of the insertion of the quadriceps tendon is present. IMPRESSION: Post left total knee arthroplasty with patellar resurfacing with the components in good position, unchanged from prior Reviewed, dictated and finalized at location A. IMPRESSION: Post left total knee arthroplasty with patellar resurfacing with t he components in good position, unchanged from prior
--- NOTE | ~2025-01-21 | XR_ITS ---
HISTORY: M25.511 - Pain in right shoulder, GLENOID CAVITY COMPARISON: None TECHNIQUE: 4 views of the right shoulder were performed. FINDINGS: No acute fracture. Hardware present within the right humeral head, for which tendon repair is suspected. Significant degenerative disease within the acromioclavicular joint space with joint space widening a nd 16 mm of elevation of the lateral clavicle with upsloping. The visualized portion of the adjacent right lung is clear. The humeral head is well seated within the glenoid fossa. 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 Reviewed, dictated and finalized at location A. IMPRESSION: Findings suggesting a type III acromioclavicular joint injury,/within the infer ior border of the clavicle is elevated beyond appear border of the acromion, bu t the coracoclavicular distance is not greatly increased.
--- OUTSIDE RECORDS SUMMARY | 2025-01-21 15:52 | XMS_ITS | Clinical Summary ---
Author Organization [facility] Address [facility] [place] [address] Care Team Providers Care Stain Dipper Name Role Phone Melo Daugherty MD Primary [...] 1 tablet (88 mcg total) by mouth digestion operator before breakfast 4 Active alendronate 70 mg [...] 08/22/2023 Assessment & Plan (08/22/2023 9:31 AM PATTERN FILER): Ms. Jose Guadalupe Gutierrez is a 77 [...] today. Surgical History Surgery Date Site/Laterality Comments [place] TOTAL THYROID LOBEC UNI W/CONTRALAT STOT LOBEC Thyroid Surgery Arnold-Thyroidectomy - (Added by TW Conv) Medical History Medical History Date Comments Hx Other Medical thyroid surgery Family History Medical History Relation Name Comments Diabetes Mother Diabetes Mellit us - (Added by Conv) Heart disease Mother Heart Disease - (Added by TW Conv) Hypothyroidism Mother Family histor y of hypothyroidism - (Added by TW Conv) COPD Other Family history of chronic obstructive pulmonary disease - (Added by TW Conv) Diabetes Other Family history of Diabetes mellitus; Heart disease Other Family history of Heart disease; Heart failure Other Family history of congestive heart failure - (Added by TW Conv) Relation Name Status Comments Mother Other Social History Tobacco Use Types Packs/Day Years Used Date Smoking Tobacco: Former Tobacco Cessation:Counseling Given: Not Answered Alcohol Use Standard Drinks/Week Comments No 0 (1 standard drink = 0.6 oz pur e alcohol) Comments Unknown Sex and Gender Information Value Date Recorded Sex Assigned at Not on file Legal Sex Female 1:12 AM PATTERN FILER Gender Identity Not on file Sexual Orientation [...] 11:10 AM CDT Height 154.9 cm (5' 1) 11/25/2023 11:10 AM CDT Body Mass Index [...] 1996 Well Visit 65+ 2011 Influenza Vaccine (Season Ended) 2025 05/06/20 16 Insurance MEDICARE COMMERCIAL GENERIC MEDICARE A[employer] SENIOR SUPPLEMENT Care Teams Stain Dipper Relationship Specialty Start Date End Date Melo Daugherty MD [address] [place] [address] PCP - General 01/31/13
--- OUTSIDE RECORDS SUMMARY | 2025-01-21 15:52 | XMS_ITS | Clinical Summary ---
Author Organization [facility] [employer] Address [address] [address] Care Team Providers Care Lining Feller Blindstitch Name Role Phone Unavailable Primary Care Provider Unavailabl e Source Comments [facility] [employer] [facility],non-owned Affiliates and Associated Physician Practices is amultiple site organization consisting of ambulatory clinics and hospital sitesin [place], [place], [place] and [place]. This disclosure is being madepursuant to the Care Everywhere program and may not contain all information available regarding this patient. Last updated 18.[employer] [facility] Allergies No known active allergies Medications * Be aware that medications may not be up to date on this document. Alwaysverify current medications with the patient. LEVOTHYROXINE 10 MCG/ML PO CMPD SOLN (SYNTHROID) SOLN Active Fexofenadine HCl (MARCELLE ALLERGY PO) Active pantoprazole (PROTONIX) 40 MG packet Take 40 [...] = 0.6 oz pur e alcohol) Comments No Sex and Gender Information Value Date Recorded Sex Assigned at Not on file Legal Sex Female 12:00 PM CARBONATION EQUIPMENT OPERATOR Gender Identity Not on file Sexual Orientation Not on file Last Filed Vital Signs Vital Sign Reading Time Taken Comments Blood Pressure 142/88 08/10/2019 11:12 AM CARBONATION EQUIPMENT OPERATOR Pulse 90 08/10/2019 11:12 AM CARBONATION EQUIPMENT OPERATOR Temperature 37.4 C (99.3 F) 08/10/2019 11:12 AM CARBONATION EQUIPMENT OPERATOR Respiratory Rate 18 08/10/2019 11:12 AM CARBONATION EQUIPMENT OPERATOR Oxygen Saturation 96% 08/10/2019 11:12 AM CARBONATION EQUIPMENT OPERATOR Inhaled Oxygen Concentration - - Weight 66.7 kg (147 lb) 08/10/2019 11:12 AM CARBONATION EQUIPMENT OPERATOR Height 158.8 cm (5' 2.5) 08/10/2019 11:12 AM CS T Body Mass Index 26.46 08/10/2019 11:12 AM CARBONATION EQUIPMENT OPERATOR Plan of Treatment Health Maintenance Due Date Last Done Comments BONE DENSITY TESTING 1946 HEPATITIS C SCREENING 08/25/1964 DTAP/TDAP/TD VACCINES (1 - Tdap) 1965 PNEUMOCOCCAL VACCINE 50+ (1 of 1 - PCV) 1996 ZOSTER VACCINE (1 of 2) 1996 Respiratory Syncytial Virus (RSV) Vaccine Pt: or over 60 yrs (1 - 1-dose 75+ series) 2021 COVID-19 VACCINE ( - 2023-2 5 season) 2024 DEPRESSION SCREENING 08/06/2024 INFLUENZA VACCINE (Season Ended) 2025 HEPATITIS B VACCINE Aged Out No longe r eligible based on patient's age to complete this topic HIB VACCINE Aged Out No longer eligi ble based on patient's age to complete this topic HPV VACCINE Aged Out No longer eligi ble based on patient's age to complete this topic MENINGOCOCCAL (Group B) VACC INE SHARED DECISION-MAKING Aged Out No longer eligibl e based on patient's age to complete this topic MENINGOCOCCAL GROUPS A/C/Y/W VACCINE Aged Out No longer eligible b ased on patient's age to complete this topic Insurance MEDICARE [facility]ICARE [facility]
--- OUTSIDE RECORDS SUMMARY | 2025-01-21 15:52 | XMS_ITS | Referral Summary ---
Author Organization [facility] Address [facility] [place] [address] Care Team Providers Care Annual Giving Director Name Role Phone Melo Daugherty MD Primary [...] 1 tablet (88 mcg total) by mouth paper roll machine operator before breakfast 4 Active alendronate 70 [...] 08/22/2023 Assessment & Plan (08/22/2023 9:31 AM HEALTH COMMISSIONER): Ms. Jose Guadalupe Gutierrez is a 77 [...] on file Legal Sex Female 1:12 AM HEALTH COMMISSIONER Gender Identity Not on file Sexual Orientation [...] GENERIC MEDICARE AETNA SENIOR SUPPLEMENT Care Teams Annual Giving Director Relationship Specialty Start Date End Date Melo Daugherty MD [address] [place] [address] PCP - General 01/31/13
== END 2025-01-21 13:59 | disposition home or self-care (01) ==
PROVIDERS: PCP Emergency Medicine; Visit Provider Orthopaedic Surgery
DX: M25.511 Pain in right shoulder (principal); Z96.652 Presence of left artificial knee joint; M25.562 Pain in left knee
CPT/HCPCS: 73030; 73562

== ENCOUNTER 2025-02-05 14:20 | Outpatient (CLI) | payer MEDICARE, SELFPAY ==
--- OUTSIDE RECORDS SUMMARY | 2025-02-05 14:23 | XMS_ITS | Referral Summary ---
Author Organization [facility] Address [facility] [place] [address] Care Team Providers Care Stereotype Molder Name Role Phone Melo Daugherty MD Primary [...] 1 tablet (88 mcg total) by mouth brush operator before breakfast 4 Active alendronate 70 [...] 08/22/2023 Assessment & Plan (08/22/2023 9:31 AM LENS GRINDER APPRENTICE): Ms. Jose Guadalupe Gutierrez is a 77 [...] on file Legal Sex Female 1:12 AM LENS GRINDER APPRENTICE Gender Identity Not on file Sexual Orientation [...] GENERIC MEDICARE AETNA SENIOR SUPPLEMENT Care Teams Stereotype Molder Relationship Specialty Start Date End Date Melo Daugherty MD [address] [place] [address] PCP - General 01/31/13
--- OUTSIDE RECORDS SUMMARY | 2025-02-05 14:23 | XMS_ITS | Clinical Summary ---
Author Organization [facility] Address [facility] [place] [address] Care Team Providers Care Powder Mill Operator Name Role Phone Melo Daugherty MD Primary [...] 1 tablet (88 mcg total) by mouth success coach before breakfast 4 Active alendronate 70 mg [...] 08/22/2023 Assessment & Plan (08/22/2023 9:31 AM CITY MARSHAL): Ms. Jose Guadalupe Gutierrez is a 77 [...] today. Surgical History Surgery Date Site/Laterality Comments [place] TOTAL THYROID LOBEC UNI W/CONTRALAT STOT LOBEC [...] on file Legal Sex Female 1:12 AM CITY MARSHAL Gender Identity Not on file Sexual Orientation [...] GENERIC MEDICARE AETNA SENIOR SUPPLEMENT Care Teams Powder Mill Operator Relationship Specialty Start Date End Date Melo Daugherty MD [address] [place] [address] PCP - General 01/31/13
--- OUTSIDE RECORDS SUMMARY | 2025-02-05 14:23 | XMS_ITS | Clinical Summary ---
Author Organization [facility] Address [address] [place] [address] Care Team Providers Care Glove Finisher Name Role Phone Unavailable Primary Care Provider Unavailabl e Source Comments [facility],non-owned Affiliates and Associated Physician Practices is amultiple site organization consisting of ambulatory clinics and hospital sitesin [place], [place], [place] and [place]. This disclosure is being madepursuant to the Care Everywhere program and may not contain all information available regarding this patient. Last updated 18.[employer] [facility] Allergies No known active allergies Medications * [...] on file Legal Sex Female 12:00 PM LONG WALL MINING MACHINE TENDER Gender Identity Not on file Sexual Orientation Not on file Last Filed Vital Signs Vital Sign Reading Time Taken Comments Blood Pressure 142/88 08/10/2019 11:12 AM LONG WALL MINING MACHINE TENDER Pulse 90 08/10/2019 11:12 AM LONG WALL MINING MACHINE TENDER Temperature 37.4 C (99.3 F) 08/10/2019 11:12 AM LONG WALL MINING MACHINE TENDER Respiratory Rate 18 08/10/2019 11:12 AM LONG WALL MINING MACHINE TENDER Oxygen Saturation 96% 08/10/2019 11:12 AM LONG WALL MINING MACHINE TENDER Inhaled Oxygen Concentration - - Weight 66.7 kg (147 lb) 08/10/2019 11:12 AM LONG WALL MINING MACHINE TENDER Height 158.8 cm (5' 2.5) 08/10/2019 11:12 AM CS T Body Mass Index 26.46 08/10/2019 11:12 AM LONG WALL MINING MACHINE TENDER Plan of Treatment Health Maintenance Due Date [...] to complete this topic Insurance MEDICARE [facility]
--- OUTSIDE RECORDS SUMMARY | 2025-02-05 14:23 | XMS_ITS | Clinical Summary ---
Author Organization [facility] Address [address] [place] [address] Care Team Providers Care Tow Motor Driver Name Role Phone Melo Daugherty MD Primary Care Provider [phone] Social History Tobacco Use Types Packs/Day Years [...] Td Vaccines ( 1 - Tdap) 1965 Pneumococcal Vaccine: 50+ Ye ars (1 of 1 - PCV) 1996 Zoster Vaccines (1 of 2) 1996 Annual Medicare Wellness Visit 2011 Dexa Scan (General) 2011 RSV Immunization or 60+ Years (1 - 1-dose 75+ series) 2021 COVID-19 Vaccine (2 - 2023-2 5 season) 2024 05/12/2024 Meningococcal B Vaccine Aged Out No l onger eligible based on patient's age to complete this topic Meningococcal Vaccine Aged Out No ruddy jenny eligible based on patient's age to complete this topic RSV Immunizations Under 20 Months Aged Out No longer eligible based on patient's age to complete this topic Insurance MEDICARE [facility] Care Teams Tow Motor Driver Relationship Specialty Start Date End Date Melo Daugherty MD [address] [place] [address] PCP - General INTERNAL MEDICINE 02/21/19
[2025-02-05 14:57] LABS: Alanine Aminotransferase 15 U/L (6-35); Albumin Level 4.4 g/dL (3.5-5.1); Alkaline Phosphatase 78 U/L (38-126); Anion Gap 8 mmol/L (4-12); Aspartate Amino Transferase 26 U/L (14-36); Bilirubin,Total 0.5 mg/dL (0.2-1.3); Blood Urea Nitrogen 14 mg/dL (7-17); Calcium 9.3 mg/dL (8.4-10.2); Carbon Dioxide 27 mmol/L (22-30); Chloride 105 mmol/L (98-107); Cholesterol 195 mg/dL (0-200); Estimated Glomerular Filt Rate > 60; Glucose 88 mg/dL (65-110); HDL Direct 66 mg/dL; Potassium 3.7 mmol/L (3.4-5.0); Sodium 140 mmol/L (137-145); Total Protein 7.3 g/dL (6.3-8.2); Triglycerides 207 mg/dL (<150)
[2025-02-05 15:28] LABS: Thyroid Stimulating Hormone 2.580 uIU/mL (0.465-4.680)
== END 2025-02-05 14:21 | disposition home or self-care (01) ==
LOC: ANHLAB 14:21
PROVIDERS: PCP Emergency Medicine; Visit Provider Emergency Medicine
DX: E78.5 Hyperlipidemia, unspecified (principal); E55.9 Vitamin D deficiency, unspecified; E03.9 Hypothyroidism, unspecified; R53.83 Other fatigue
CPT/HCPCS: 36415; 80053; 80061; 82306; 84443

== ENCOUNTER 2025-02-13 14:26 | Outpatient (CLI) | payer MEDICARE, SELFPAY ==
--- NOTE | ~2025-02-13 | MM_ITS ---
EXAMINATION: MM screening ana BI w edilia HISTORY: Screening TECHNIQUE: Craniocaudal and mediolateral oblique 3-D tomosynthesis images were obtained and synthetic 2-D images were generated. CAD analysis was submitted and interpreted. COMPARISON: Comparison to multiple prior studies sequentially, with oldest reviewed study dated 07/07. BREAST PARENCHYMAL COMPOSITION: Not dense: There are scattered areas of fibroglandular density. FINDINGS: There is no evidence of suspicious mass, calcification, or architectural distortion to sugg est malignancy in either breast. There has been no suspicious interval change. IMPRESSION: 1. No mammographic evidence of malignancy. 2. Recommend routine screening mammography in one year. BI-RADS Category 1: Negative Reviewed, dictated and finalized at location B.
--- OUTSIDE RECORDS SUMMARY | 2025-02-13 14:28 | XMS_ITS | Clinical Summary ---
Author Organization [facility] Address [address] [place] [address] Care Team Providers Care Staff Command And Control Officer Name Role Phone Melo Daugherty MD Primary Care Provider [phone] Social History Tobacco Use Types Packs/Day Years [...] age to complete this topic Insurance MEDICARE [facility] Care Teams Staff Command And Control Officer Relationship Specialty Start Date End Date Melo Daugherty MD [address] [place] [address] PCP - General INTERNAL MEDICINE 02/21/19
--- OUTSIDE RECORDS SUMMARY | 2025-02-13 14:28 | XMS_ITS | Clinical Summary ---
Author Organization [facility] [employer] Address [address] [place] [address] Care Team Providers Care Residential Child Care Counselor Name Role Phone Unavailable Primary Care Provider Unavailabl e Source Comments [facility] [employer],non-owned Affiliates and Associated Physician Practices is amultiple site organization consisting of ambulatory clinics and hospital sitesin [place], [place], [place] and [place]. This disclosure is being madepursuant to the Care Everywhere program and may not contain all information available regarding this patient. Last updated 18.[employer] Allergies No known active allergies Medications [...] on file Legal Sex Female 12:00 PM TANK COOPER Gender Identity Not on file Sexual Orientation Not on file Last Filed Vital Signs Vital Sign Reading Time Taken Comments Blood Pressure 142/88 08/10/2019 11:12 AM TANK COOPER Pulse 90 08/10/2019 11:12 AM TANK COOPER Temperature 37.4 C (99.3 F) 08/10/2019 11:12 AM TANK COOPER Respiratory Rate 18 08/10/2019 11:12 AM TANK COOPER Oxygen Saturation 96% 08/10/2019 11:12 AM TANK COOPER Inhaled Oxygen Concentration - - Weight 66.7 kg (147 lb) 08/10/2019 11:12 AM TANK COOPER Height 158.8 cm (5' 2.5) 08/10/2019 11:12 AM CS T Body Mass Index 26.46 08/10/2019 11:12 AM TANK COOPER Plan of Treatment Health Maintenance Due Date [...] season) 2024 DEPRESSION SCREENING 08/06/2024 INFLUENZA VACCINE (#1) 2025 HEPATITIS B VACCINE Aged Out No [...] to complete this topic Insurance MEDICARE MEDICARE [facility]
--- OUTSIDE RECORDS SUMMARY | 2025-02-13 14:28 | XMS_ITS | Clinical Summary ---
Author Organization [facility] Address [facility] [place] [address] Care Team Providers Care Tar Man Name Role Phone Melo Daugherty MD Primary [...] 1 tablet (88 mcg total) by mouth town clerk before breakfast 4 Active alendronate 70 mg [...] 08/22/2023 Assessment & Plan (08/22/2023 9:31 AM METAL STAMPING MACHINE OPERATOR): Ms. Jose Guadalupe Gutierrez is a [...] today. Surgical History Surgery Date Site/Laterality Comments [place] TOTAL THYROID LOBEC UNI W/CONTRALAT STOT LOBEC [...] on file Legal Sex Female 1:12 AM METAL STAMPING MACHINE OPERATOR Gender Identity Not on file Sexual [...] GENERIC MEDICARE AETNA SENIOR SUPPLEMENT Care Teams Tar Man Relationship Specialty Start Date End Date Melo Daugherty MD [address] [place] [address] PCP - General 01/31/13
--- OUTSIDE RECORDS SUMMARY | 2025-02-13 14:28 | XMS_ITS | Referral Summary ---
Author Organization [facility] Address [facility] [place] [address] Care Team Providers Care Proprietary Trader Name Role Phone Melo Daugherty MD Primary [...] 1 tablet (88 mcg total) by mouth health educator before breakfast 4 Active alendronate 70 mg [...] 08/22/2023 Assessment & Plan (08/22/2023 9:31 AM MARINE CARGO INSPECTOR): Ms. Jose Guadalupe Gutierrez is a 77 [...] on file Legal Sex Female 1:12 AM MARINE CARGO INSPECTOR Gender Identity Not on file Sexual Orientation [...] GENERIC MEDICARE AETNA SENIOR SUPPLEMENT Care Teams Proprietary Trader Relationship Specialty Start Date End Date Melo Daugherty MD [address] [place] [address] PCP - General 01/31/13
== END 2025-02-13 14:27 | disposition home or self-care (01) ==
LOC: ANHIMG 14:27
PROVIDERS: PCP Emergency Medicine; Visit Provider Emergency Medicine
DX: Z12.31 Encounter for screening mammogram for malignant neoplasm of breast (principal)
CPT/HCPCS: 77063; 77067

== ENCOUNTER 2025-03-11 13:51 | Outpatient (CLI) | payer MEDICARE, SELFPAY ==
--- NOTE | ~2025-03-11 | XR_ITS ---
Left Knee Technique: AP, lateral, and sunrise views were obtained. Clinical History: Arthroplasty Findings: No fracture or dislocation is seen. Left knee arthroplasty in place. Soft tissues are unrem arkable. No joint effusion is seen. Impression: No acute abnormality. Left knee arthroplasty in place. Reviewed, dictated and finalized at location . Impression: No acute abnormality. Left knee arthroplasty in place.
--- OUTSIDE RECORDS SUMMARY | 2025-03-11 14:01 | XMS_ITS | Clinical Summary ---
Author Organization [facility] Address [address] [place] [address] Care Team Providers Care Emergency Medicine Name Role Phone Unavailable Primary Care Provider Unavailabl e Source Comments [facility],non-owned Affiliates and Associated Physician Practices is amultiple site organization consisting of ambulatory clinics and hospital sitesin [place], [place], [place] and [place]. This disclosure is being madepursuant to the Care Everywhere program and may not contain all information available regarding this patient. Last updated 18.[employer] [facility] Allergies No known active allergies Medications * [...] on file Legal Sex Female 12:00 PM HEMSTITCHING MACHINE OPERATOR Gender Identity Not on file Sexual Orientation Not on file Last Filed Vital Signs Vital Sign Reading Time Taken Comments Blood Pressure 142/88 08/10/2019 11:12 AM HEMSTITCHING MACHINE OPERATOR Pulse 90 08/10/2019 11:12 AM HEMSTITCHING MACHINE OPERATOR Temperature 37.4 C (99.3 F) 08/10/2019 11:12 AM HEMSTITCHING MACHINE OPERATOR Respiratory Rate 18 08/10/2019 11:12 AM HEMSTITCHING MACHINE OPERATOR Oxygen Saturation 96% 08/10/2019 11:12 AM HEMSTITCHING MACHINE OPERATOR Inhaled Oxygen Concentration - - Weight 66.7 kg (147 lb) 08/10/2019 11:12 AM HEMSTITCHING MACHINE OPERATOR Height 158.8 cm (5' 2.5) 08/10/2019 11:12 AM CS T Body Mass Index 26.46 08/10/2019 11:12 AM HEMSTITCHING MACHINE OPERATOR Plan of Treatment Health Maintenance Due [...] this topic Insurance MEDICARE [facility]ICARE [facility]
--- OUTSIDE RECORDS SUMMARY | 2025-03-11 14:01 | XMS_ITS | Clinical Summary ---
Author Organization [facility] Address [facility] [place] [address] Care Team Providers Care Supersonic Engineer Name Role Phone Melo Daugherty MD Primary [...] 1 tablet (88 mcg total) by mouth mba internship before breakfast 4 Active alendronate 70 mg [...] 08/22/2023 Assessment & Plan (08/22/2023 9:31 AM APPLICATION COORDINATOR): Ms. Jose Guadalupe Gutierrez is a 77 [...] today. Surgical History Surgery Date Site/Laterality Comments CT TOTAL THYROID LOBEC UNI W/CONTRALAT STOT LOBEC [...] on file Legal Sex Female 1:12 AM APPLICATION COORDINATOR Gender Identity Not on file Sexual Orientation [...] Well Visit 65+ 2011 Influenza Vaccine (#1) 2025 05/06/2016 Insurance MEDICARE COMMERCIAL GENERIC MEDICARE AETNA SENIOR SUPPLEMENT Care Teams Supersonic Engineer Relationship Specialty Start Date End Date Melo Daugherty MD [address] [place] [address] PCP - General 01/31/13
--- OUTSIDE RECORDS SUMMARY | 2025-03-11 14:01 | XMS_ITS | Clinical Summary ---
Author Organization [facility] Address [address] [place] [address] Care Team Providers Care International Relations Teacher Name Role Phone Melo Daugherty MD Primary Care Provider [phone] Social History Tobacco Use Types Packs/Day Years [...] age to complete this topic Insurance MEDICARE [facility] Care Teams International Relations Teacher Relationship Specialty Start Date End Date Melo Daugherty MD [address] [place] [address] PCP - General INTERNAL MEDICINE 02/21/19
--- OUTSIDE RECORDS SUMMARY | 2025-03-11 14:01 | XMS_ITS | Patient Health Record ---
Author Organization [facility] Address [address] [place], [place] [address] Support Name Relationship Address Phone CHAIM JAVIERETTE Emergency Contact Unknown MIGUEL WALLACE Guarantor Unknown [phone] Reason For Referral No Information Plan Of Treatment No Information Insurance Providers Payer Name Payer Address Payer Phone Subscriber Number Group Number Insured Name Patient Relationship to Insured Coverage Start Date Coverage End Date Medicare Part B [place] [address] [place] [address] [id number] MIGUEL WALLACE Self - patient is the insured Aet [address] [place] [address] [id number] MIGUEL WALLACE Self - patient is the insured
== END 2025-03-11 13:52 | disposition home or self-care (01) ==
LOC: ANHLAB 13:55 → ANHIMG 13:55
PROVIDERS: PCP Emergency Medicine; Visit Provider Orthopaedic Surgery
DX: Z96.652 Presence of left artificial knee joint (principal)
CPT/HCPCS: 73562

== ENCOUNTER 2025-05-06 13:32 | Outpatient (CLI) | payer MEDICARE, SELFPAY ==
--- OUTSIDE RECORDS SUMMARY | 2025-05-06 13:39 | XMS_ITS | Clinical Summary ---
Author Organization [facility] Address [address] [place] [address] Care Team Providers Care Bulk Filler Name Role Phone Unavailable Primary Care Provider Unavailabl e Source Comments [facility],non-owned Affiliates and Associated Physician Practices is amultiple site organization consisting of ambulatory clinics and hospital sitesin [place], [place], [place] and [place]. This disclosure is being madepursuant to the Care Everywhere program and may not contain all information available regarding this patient. Last updated 18.[employer] [facility] Allergies No known active allergies Medications * [...] on file Legal Sex Female 12:00 PM DOCUMENT COORDINATOR Gender Identity Not on file Sexual Orientation Not on file Last Filed Vital Signs Vital Sign Reading Time Taken Comments Blood Pressure 142/88 08/10/2019 11:12 AM DOCUMENT COORDINATOR Pulse 90 08/10/2019 11:12 AM DOCUMENT COORDINATOR Temperature 37.4 C (99.3 F) 08/10/2019 11:12 AM DOCUMENT COORDINATOR Respiratory Rate 18 08/10/2019 11:12 AM DOCUMENT COORDINATOR Oxygen Saturation 96% 08/10/2019 11:12 AM DOCUMENT COORDINATOR Inhaled Oxygen Concentration - - Weight 66.7 kg (147 lb) 08/10/2019 11:12 AM DOCUMENT COORDINATOR Height 158.8 cm (5' 2.5) 08/10/2019 11:12 AM CS T Body Mass Index 26.46 08/10/2019 11:12 AM DOCUMENT COORDINATOR Plan of Treatment Health Maintenance Due Date Last Done Comments BONE DENSITY TESTING 1945 HEPATITIS C SCREENING 08/25/1964 DTAP/TDAP/TD VACCINES (1 - Tdap) 1965 PNEUMOCOCCAL VACCINE 50+ (1 of 1 - PCV) 1996 ZOSTER VACCINE (1 of 2) 1996 Respiratory Syncytial Virus (RSV) Vaccine Pt: or over 60 yrs (1 - 1-dose 75+ series) 2021 DEPRESSION SCREENING 08/06/2024 COVID-19 VACCINE (1 - 2023-2 5 season) 2025 INFLUENZA VACCINE (#1) 2025 HEPATITIS B VACCINE [...] to complete this topic Insurance MEDICARE MEDICARE [facility]
--- OUTSIDE RECORDS SUMMARY | 2025-05-06 13:39 | XMS_ITS | Clinical Summary ---
Author Organization [facility] Address [address] [place] [address] Care Team Providers Care Mason Tender Restoration Labor Name Role Phone Melo Daugherty MD Primary Care Provider [phone] Social History Tobacco Use Types Packs/Day Years [...] COVID-19 Vaccine (2 - 2023-2 5 season) 2025 05/12/2024 Meningococcal B Vaccine Aged Out No l onger eligible based on patient's age to complete this topic Meningococcal Vaccine Aged Out No ruddy jenny eligible based on patient's age to complete this topic RSV Immunizations Under 20 Months Aged Out No longer eligible based on patient's age to complete this topic Insurance MEDICARE [facility] Care Teams Mason Tender Restoration Labor Relationship Specialty Start Date End Date Melo Daugherty MD [address] [place] [address] PCP - General INTERNAL MEDICINE 02/21/19
--- OUTSIDE RECORDS SUMMARY | 2025-05-06 13:39 | XMS_ITS | Clinical Summary ---
Author Organization [facility] Address [facility] [place] [address] Care Team Providers Care Warehouse Trainer Name Role Phone Melo Daugherty MD Primary [...] 1 tablet (88 mcg total) by mouth deputy editor in chief before breakfast 4 Active alendronate 70 mg [...] 08/22/2023 Assessment & Plan (08/22/2023 9:31 AM EXHAUST EMISSIONS INSPECTOR): Ms. Jose Guadalupe Gutierrez is a [...] today. Surgical History Surgery Date Site/Laterality Comments [place] TOTAL THYROID LOBEC UNI W/CONTRALAT STOT LOBEC [...] on file Legal Sex Female 1:12 AM EXHAUST EMISSIONS INSPECTOR Gender Identity Not on file Sexual [...] GENERIC MEDICARE [employer] SENIOR SUPPLEMENT Care Teams Warehouse Trainer Relationship Specialty Start Date End Date Melo Daugherty MD [address] [place] [address] PCP - General 01/31/13
--- NOTE | 2025-05-06 13:46 | ECG_ITS ---
Test Date: 2025-05-06 13:54:54 Measurements Intervals Pfeifer Rate: 85 P: 19 KS: 146 QRS: 1 QRSD: 98 T: 47 QT: 354 QTc: 423 Interpretive Statements SINUS RHYTHM LEFT VENTRICULAR HYPERTROPHY WITH ST-T CHANGE BORDERLINE R WAVE PROGRESSION, ANTERIOR LEADS BASELINE ARTIFACT- I, II, III, AVR, AVL, AVF, V2-V6 BORDERLINE ECG No previous ECG available for comparison Electronically Signed On 05-06-2025 13:56:59 CDT by Alexandr Kennedy D.O.
== END 2025-05-06 13:33 | disposition home or self-care (01) ==
LOC: ANHSURGERY 13:37
PROVIDERS: PCP Emergency Medicine; Visit Provider Orthopaedic Surgery
DX: I10 Essential (primary) hypertension (principal); Z01.818 Encounter for other preprocedural examination; R94.31 Abnormal electrocardiogram [ECG] [EKG]
CPT/HCPCS: 93005

== ENCOUNTER 2025-05-11 02:07 | Day surgery (SDC) | payer MEDICARE, SELFPAY ==
--- NOTE | 2025-05-06 12:42 | PC.NURSE ---
[facility] has started construction of its new state of the art ER which will open Spring 2026. With this, we anticipate parking may be a challenge for some our surgical patients and families. Parking spaces are limited but are available for all Surgical, obstetrics, and ER patients sharing this lot. If you arrive and find you are having a hard time finding a parking space, please note that we understand the challenges, please drive around the hospital and park near Hospital Entrance 1. When you enter this entrance, you can ask a volunteer to direct or take you back to the surgical waiting area to check in. We appreciate everyone?s understanding of these expected challenges while we build for your future. Report to the Outpatient Waiting Room, entrance under the green pavilion located off [address], at time _1 PM on date __05/11/25 . Planned Procedure Time: __3 PM .? Time changes happen often and if your time is changed the preop area will call you the afternoon before. - You and your visitor will be asked to self-screen and do not enter if you have any COVID symptoms. Please call surgeon if you need to reschedule. - A mask is optional within the hospital at this time. Patients may have clear liquids (water, carbonated beverages, clear teas, apple juice) until 3 hours prior to surgery ( 1200 NOON)with a maximum of 20 ounces. - No food from midnight until time of surgery and no smoking, or chewing tobacco (or any form of nicotine). No chewing gum, candy or mints. Take only the following medications with a SIP of water on the morning of surgery: ___ALPRAZOLAM IF NEEDED,HYDRALAZINE,LEVOTHYROXINE DO NOT STOP ANY OF YOUR OTHER PRESCRIPTION MEDICATIONS PRIOR TO SURGERY EXCEPT THE FOLLOWING Hold all vitamins and supplements for 3 days per anesthesiologist.LAST DOSE 05/07/25 Medications to discontinue per physician NONE Please no make-up, nail latvian, hairspray, perfume, deodorant, or body powder the day of surgery.? No jewelry (including any body piercings) or valuables the day of surgery, leave them at home.? Please take a shower or bath the night before, or the morning of, surgery with an antibacterial soap.? Wear comfortable, loose fitting clothing.? Children are encouraged to wear pajamas. - Jewelry must be removed prior to entering the operating room.? Rings and piercings that are not removed may be cut off. - The hospital will not accept responsibility for valuables.? - Please leave all valuables, including medications, at home the day of surgery. If you are going home after surgery, a licensed driver messenger must drive you home.? - NO public transportation without another adult if you receive anesthesia. - We recommend that an adult stay with you for 24 hours following discharge. - We also recommend that you do not drive, make important decision, drink alcoholic beverages, or take any drugs that were not prescribed by your health care provider for at least 24 hours after your discharge time. For Pediatric surgeries, we recommend two adults accompany the child home. Follow any additional instructions given to you from your surgeon. Telephone instructions given to _PATIENT and asked if any additional questions and then verbalized understanding. Patient advised to call surgeon office or pre surgery nurse liaison [phone] if any additional questions.
[2025-05-06 13:01] VITALS: BMI 25.4
[2025-05-11] VITALS (9 sets, daily range): BP systolic 147–169; BP diastolic 46–97; PULSE 66–85; RESP 12–18; TEMP 36.3–37.1; O2SAT 96–100
--- OUTSIDE RECORDS SUMMARY | 2025-05-11 02:10 | XMS_ITS | Patient Health Record ---
Author Organization [facility] Address [address] [place] [address] Support Name Relationship Address Phone Jose Guadalupe Gutierrez Guarantor Unknown Reason For Referral No Information Medications Medication SIG (Take, Route, Frequency, Duration) Notes Start Date End Date Status Bactrim DS 800-160 MG 1 tablet Orally Tw ice a day; Duration: 10 day(s) 01/12/2016 Active Levothyroxine Sodium 75 MCG 1 tablet Ora lly Once a day Active Dicyclomine HCl 20 MG 1 tablet Orally on ce a day Active Pantoprazole Sodium 40 MG 1 tablet Orall y Once a day Active Cyclobenzaprine HCl 10 MG 1 tablet Orall y Three times a day Active Zolpidem Tartrate 5 MG 1 tablet at bedti me Orally Once a day Active Problems Problem Type SNOMED Code ICD Code Onset Dates Problem Status W/U Status Risk Notes Problem Insomnia (729451679) Insomnia (G47.00) Active confirmed Problem Hypothyroid (18348527) Hypothyroid (E03.9) Active confirmed Problem Arthritis (6656798) Arthritis (M19.90) Active confirmed Problem Fibromyalgia (648225364) Fibromyalgia (729.1) Active confirmed Plan Of Treatment No Information Insurance Providers Payer Name Payer Address Payer Phone Subscriber Number Group Number Insured Name Patient Relationship to Insured Coverage Start Date Coverage End Date [place] [address] [place] [phone] [id number] Jose Guadalupe Gutierrez Self - patient is the insured [facility] [address] [place] [id number] [phone] [id number] Jose Guadalupe Gutierrez Self - patient is the insured Medical (General) History Medical History History ICD Code Hypothyroid E03.9 Insomnia G47.00 Arthritis M19.90 Fibromyalgia 729.1 Surgical History Surgery Date(Month/Year) Tonsils, & Adnoids Right rotator cuff repair Thyroidectomy
--- OUTSIDE RECORDS SUMMARY | 2025-05-11 02:11 | XMS_ITS | Patient Health Record ---
Author Organization [facility] Address [address] [place], [place] [id number] Support Name Relationship Address Phone CHAIM JAVIERETTE Emergency Contact Unknown MIGUEL WALLACE Guarantor Unknown Reason For Referral No Information Plan Of Treatment No Information Insurance Providers Payer Name Payer Address Payer Phone Subscriber Number Group Number Insured Name Patient Relationship to Insured Coverage Start Date Coverage End Date Medicare Part B [place] [address] [place] [address] [id number] MIGUEL WALLACE Self - patient is the insured Aet [address] [place] [address] [id number] MIGUEL WALLACE Self - patient is the insured
--- OUTSIDE RECORDS SUMMARY | 2025-05-11 02:11 | XMS_ITS | Clinical Summary ---
Author Organization [facility] Address [address] [place] [address] Care Team Providers Care Special Population Paraprofessional Name Role Phone Melo Daugherty MD Primary Care Provider [phone] Social History Tobacco Use Types Packs/Day Years [...] to complete this topic Insurance MEDICARE [facility] Care Teams Special Population Paraprofessional Relationship Specialty Start Date End Date Melo Daugherty MD [address] [place] [address] PCP - General INTERNAL MEDICINE 02/21/19
--- OUTSIDE RECORDS SUMMARY | 2025-05-11 02:11 | XMS_ITS | Clinical Summary ---
Author Organization [facility] Address [facility] [place] [address] Care Team Providers Care Admin Dir Name Role Phone Melo Daugherty MD Primary [...] 1 tablet (88 mcg total) by mouth stack clerk before breakfast 4 Active alendronate 70 [...] 08/22/2023 Assessment & Plan (08/22/2023 9:31 AM INTELLIGENCE ANALYST): Ms. Jose Guadalupe Gutierrez is a 77 [...] today. Surgical History Surgery Date Site/Laterality Comments [place] TOTAL THYROID LOBEC UNI W/CONTRALAT STOT LOBEC [...] on file Legal Sex Female 1:12 AM INTELLIGENCE ANALYST Gender Identity Not on file Sexual Orientation [...] GENERIC MEDICARE [employer] SENIOR SUPPLEMENT Care Teams Admin Dir Relationship Specialty Start Date End Date Melo Daugherty MD [address] [place] [address] PCP - General 01/31/13
--- OUTSIDE RECORDS SUMMARY | 2025-05-11 02:11 | XMS_ITS | Clinical Summary ---
Author Organization [facility] Address [address] [place] [place] [address] Care Team Providers Care Aluminum Molder Name Role Phone Unavailable Primary Care Provider Unavailabl e Source Comments [facility],non-owned Affiliates and Associated Physician Practices is amultiple site organization consisting of ambulatory clinics and hospital sitesin [place], [place], [place] and [place]. This disclosure is being madepursuant to the Care Everywhere program and may not contain all information available regarding this patient. Last updated 18.[employer] [facility] Allergies No known active allergies Medications * [...] on file Legal Sex Female 12:00 PM HIGH SCHOOL SOCIAL STUDIES TUTOR Gender Identity Not on file Sexual Orientation Not on file Last Filed Vital Signs Vital Sign Reading Time Taken Comments Blood Pressure 142/88 08/10/2019 11:12 AM HIGH SCHOOL SOCIAL STUDIES TUTOR Pulse 90 08/10/2019 11:12 AM HIGH SCHOOL SOCIAL STUDIES TUTOR Temperature 37.4 C (99.3 F) 08/10/2019 11:12 AM HIGH SCHOOL SOCIAL STUDIES TUTOR Respiratory Rate 18 08/10/2019 11:12 AM HIGH SCHOOL SOCIAL STUDIES TUTOR Oxygen Saturation 96% 08/10/2019 11:12 AM HIGH SCHOOL SOCIAL STUDIES TUTOR Inhaled Oxygen Concentration - - Weight 66.7 kg (147 lb) 08/10/2019 11:12 AM HIGH SCHOOL SOCIAL STUDIES TUTOR Height 158.8 cm (5' 2.5) 08/10/2019 11:12 AM CS T Body Mass Index 26.46 08/10/2019 11:12 AM HIGH SCHOOL SOCIAL STUDIES TUTOR Plan of Treatment Health Maintenance Due Date [...] to complete this topic Insurance MEDICARE [facility]ICARE [facility]
--- NOTE | 2025-05-11 13:27 | WPDANESEPPF ---
Anes - Initial Pre Proc Eval Procedure: Operation Date: 05/11/25 15:00 Proposed Procedures p Left Knee Arthroscopy, with Synovectomy and Manipulation - Levi Michel MD Date/Time: 05/11/25 13:27 Surgeon: Levi Michel MD Pre Op Diagnosis: left knee contracture Patient Data Age: 79 Gender: F Height: 1.57 m Weight: 63.05 kg Allergies Allergy/AdvReac Type Severity Reaction Status Date / Time tramadol Allergy Severe Abdominal Verified 05/06/25 12:41 Pain AND NAUSEA vancomycin Allergy Unknown unknown-FAMILY Verified 05/06/25 12:41 REACTION Home Medications ?Medication ?Instructions ?Recorded ?Confirmed ?Type hydroxyzine HCl 25 mg tablet See Rx Instructions .Route 03/12/23 05/07/25 Rx .COMPLEX #30 tabs alendronate 70 mg tablet (Fosamax) 70 mg PO WEEKLY #12 tabs 04/17/23 05/07/25 Rx cholecalciferol (vitamin D3) 50 50 mcg PO DAILY 04/17/23 05/07/25 History mcg (2,000 unit) capsule fluticasone propionate 50 See Rx Instructions .Route 03/21/24 05/07/25 Rx mcg/actuation nasal .COMPLEX #16 grams spray,suspension fexofenadine-pseudoephedrine ER 1 tablet PO DAILY PRN sinus 04/03/24 05/07/25 History 180 mg-240 mg tablet,ext.release symptoms 24 hr (Mckenzie-D 24 Hour) cyclobenzaprine 10 mg tablet See Rx Instructions .Route 06/30/24 05/07/25 Rx .COMPLEX #90 tabs pantoprazole 40 mg tablet,delayed See Rx Instructions .Route 12/01/24 05/07/25 Rx release .COMPLEX #180 tabs atorvastatin 10 mg tablet See Rx Instructions .Route 01/05/25 05/07/25 Rx .COMPLEX #90 tabs levothyroxine 88 mcg tablet See Rx Instructions .Route 01/05/25 05/07/25 Rx .COMPLEX #90 tabs triamcinolone acetonide 0.1 % 1 applic topical TID #80 grams 02/13/25 05/07/25 Rx topical ointment alprazolam 0.5 mg tablet (Xanax) 0.5 mg PO BID PRN anxiety #30 tabs 04/25/25 05/07/25 Rx zolpidem 10 mg tablet 10 mg PO QHS #30 tabs 05/01/25 05/07/25 Rx hydralazine 10 mg tablet See Rx Instructions .Route 05/04/25 05/07/25 Rx .COMPLEX #180 tabs acetaminophen 500 mg tablet 1,000 mg PO Q6H 05/06/25 05/06/25 History (Acetaminophen Pain Relief) magnesium 200 mg tablet 400 mg PO DAILY 05/06/25 05/07/25 History hydrocodone 5 mg-acetaminophen 325 1 - 2 tablet PO Q4-6H PRN pain 7 05/11/25 Rx mg tablet days #30 tabs Patient hx anesthesia problems: none Family hx anesthesia problems: none Results Review: All pre-operative results and documents have been reviewed as part of the pre-operative evaluation. [facility] Past Medical History Medical History Contracture, left knee Acromioclavicular joint separation Right shoulder pain Left knee pain Left-sided chest pain Back pain with sciatica Vitamin D deficiency Unspecified asthma, uncomplicated Primary insomnia Polyosteoarthritis, unspecified Pharyngeal dysphagia Patient had no falls in past year Other dysphagia Numbness and tingling of left leg Major depressive disorder, single episode, unspecified Lt arm numbness Low back pain Left lower quadrant abdominal pain L4-L5 disc bulge Kidney stones Irritable bowel syndrome without diarrhea Irritable bowel syndrome with diarrhea Gastro-esophageal reflux disease without esophagitis Encounter for other specified surgical aftercare Complete tear of left rotator cuff Cervical stenosis of spinal canal Carpal tunnel syndrome of left wrist Orthopedic aftercare for joint replacement Overweight (BMI 25.0-29.9) Spinal stenosis at L4-L5 level Hypothyroidism, unspecified Peripheral neuropathy Chronic GERD Spinal stenosis Orthopedic aftercare COVID Primary osteoarthritis of left knee Hyperlipidemia Abdominal pain Anxiety Hypothyroidism (acquired) Insomnia Surgical History Surgical History Status post surgical manipulation of knee joint (~05/16/22) Lt Knee History of total knee arthroplasty Status post total left knee replacement Family History Family History Mother Diabetes mellitus Family history of cardiovascular disease Cerebrovascular accident Family history of arthritis Other Family history of type 2 diabetes mellitus Social History Social History Social History: Patient drinks 7.5oz of caffeine daily. Patient also exercises daily. Smoking status: Never smoker Second hand tobacco smoke exposure: No Additional smoking assessment comments: DENIES ANY TOBACCO USE Alcohol intake: never Drinks per week: 1 Substance use: never Substance use type: does not use Do You Feel Safe in your Home?: Yes Lack of Transportation: No Lack of Food: Never True Current Housing: I Have Housing Concerned About Future Housing: No Difficulty Paying Gas/Electric Bills: No Difficulty Paying for Meds: No Currently Unemployed: No Education: Bachelor's Degree Difficulty w/ Childcare or Family Care: No Living arrangements: with family Additional living arrangements comments: PT LIVES WITH DAUGHTER (SCAR) & FAMILY Occupation/Education: retired Gender identity (if verbalized by the patient): Female Sexual Orientation (if Verbalized by the Patient): Straight or Heterosexual Spiritual care concerns: No Anes - Eval Final PreProcedure Day of Procedure 05/11/25 13:27 Patient weight: overweight Heart: regular rate and rhythm Lungs: clear to auscultation Airway: Mallampati scale class II Neurological: alert and oriented Last oral intake: >/= 8 hours ASA classification: III Emergent: no Anesthetic plan: proceed Anesthesia type and monitoring: general LMA and standard monitoring Results Review: All pre-operative results and documents have been reviewed as part of the pre-operative evaluation. Informed Consent: The patient's anesthetic plan and its attendant risks and benefits were discussed with the patient/family/POA. Questions were solicited and answers provided to the satisfaction of the patient/family/POA.
[2025-05-11] MEDS: KETOROLAC 15 MG/ML VIAL (*BKC) IV PUSH (13:45)
[2025-05-11] MEDS: LACTATED RINGERS 1,000 ML 30 ML IV CONT ×2 (13:45→15:30)
[2025-05-11] MEDS: ACETAMINOPHEN 500 MG TABLET 1000 MG PO (13:45)
--- NOTE | 2025-05-11 14:05 | WPDHPUPDATE1 ---
History and Physical Update Update Date/Time: 05/11/25 14:05 History and Physical has been reviewed, including an updated exam of the patient. There are NO changes in the patient's condition. Risks, benefits, and alternatives have been discussed and questions answered. Patient agrees to proceed with procedure.
[2025-05-11] MEDS: ceFAZolin 2 GM in SODIUM CHLORIDE 0.9% IV 50 ML 100 ML IVPB (14:24)
[2025-05-11] MEDS: BUPIVACAINE/EPINEPHRINE 0.5% 50 ML VIAL 30 ML INFILTRATE (14:25)
--- NOTE | 2025-05-11 15:09 | WNDPHOTO ---
PHOTO ONLY - See Nursing Notes and/ or assessments for documentation.
--- NOTE | 2025-05-11 15:40 | W.PM.PROC2 ---
Procedure Note - Detailed Date of Procedure 05/11/25 Pre-op Diagnosis Left knee contracture status post total knee arthroplasty. Post-op Diagnosis Same Procedure Performed Arthroscopic lysis of adhesion with partial synovectomy left knee. Manipulation under anesthesia. Surgeon Levi Michel MD Anesthesia General Findings Moderate adhesions around the patella and medial gutter and medial superior retinacular area. These were debrided. PCL appeared to be intact. It was partially released from the femur and pie crusted with the spinal needle. Postoperative manipulation performed with range of motion easily improved to 130?, and approximately 115-120? with gravity only. Description of Procedure Preoperative antibiotics were given. The leg was prepped and draped in the usual sterile fashion in the arthroscopic leg chen. Standard inferomedial and inferolateral arthroscopic portals were established. Inflow obtain with the saline pump. Scar tissue and prolific synovium in the retro fat pad area was debrided up to the patella. The circumferential patellar debridement performed. Medially the scar tissue was more pronounced and the release loosened up the patella quite nicely. There were small adhesions in the suprapatellar pouch which were also released with the shaver and the radiofrequency probe. Patellar tracking improved, and remained centralized and well balanced between the medial and lateral sides. The RF probe was used where necessary to control any bleeding. Prior to closure the tourniquet was released and hemostasis obtained. The notch area was debrided and adhesions along the posterior inferior capsule were taken down as well as the superior half of the femoral PCL insertion. Pie crusting was also performed which provided a nice elongation to the ligament. The arthroscopic portals were closed with interrupted 3-0 Monocryl suture and Steri-Strips dressing was applied. The arthroscopic instruments were removed and the manipulation was performed. Modest pressure was required to provide a nice stretch deep into flexion to 130? manually preserving 115-120? with gravity only. Estimated Blood Loss 10 Drains No Packing No Pathology None sent Complications No immediate complications Condition Stable Disposition PACU [facility] Billing Surgery - Charge Forward: Surgery Billing
[2025-05-11] MEDS: oxyCODONE HCL (*CRX) 5 MG TAB IR PO (16:35)
== END 2025-05-11 17:05 | disposition home or self-care (01) ==
PROVIDERS: PCP Emergency Medicine; Visit Provider Orthopaedic Surgery
PROC: (CPT 29870; principal; 2025-05-11 15:00)
DX: M24.562 Contracture, left knee (principal); K66.0 Peritoneal adhesions (postprocedural) (postinfection); E78.5 Hyperlipidemia, unspecified; K21.9 Gastro-esophageal reflux disease without esophagitis; E03.9 Hypothyroidism, unspecified; E55.9 Vitamin D deficiency, unspecified; J45.909 Unspecified asthma, uncomplicated; F51.01 Primary insomnia; F41.9 Anxiety disorder, unspecified; F32.9 Major depressive disorder, single episode, unspecified; K58.0 Irritable bowel syndrome with diarrhea; M17.12 Unilateral primary osteoarthritis, left knee; M48.02 Spinal stenosis, cervical region; M48.061 Spinal stenosis, lumbar region without neurogenic claudication; G62.9 Polyneuropathy, unspecified; Z79.83 Long term (current) use of bisphosphonates; Z79.891 Long term (current) use of opiate analgesic; Z98.890 Other specified postprocedural states; Z96.652 Presence of left artificial knee joint; Z87.442 Personal history of urinary calculi; Z82.49 Family history of ischemic heart disease and other diseases of the circulatory system
CPT/HCPCS: 29884; J0690; A9270; J1100; J1885; J2003; J2405; J2704; J3010; J7120

== ENCOUNTER 2025-06-11 11:17 | Outpatient (CLI) | payer MEDICARE, SELFPAY ==
[2025-06-11 12:28] LABS: Alanine Aminotransferase 17 U/L (6-35); Albumin Level 4.2 g/dL (3.5-5.1); Alkaline Phosphatase 68 U/L (38-126); Anion Gap 5 mmol/L (4-12); Aspartate Amino Transferase 27 U/L (14-36); Bilirubin,Total 0.5 mg/dL (0.2-1.3); Blood Urea Nitrogen 10 mg/dL (7-17); Calcium 8.9 mg/dL (8.4-10.2); Carbon Dioxide 27 mmol/L (22-30); Chloride 107 mmol/L (98-107); Cholesterol 174 mg/dL (0-200); Estimated Glomerular Filt Rate > 60; Glucose 92 mg/dL (65-110); HDL Direct 81 mg/dL; Potassium 4.1 mmol/L (3.4-5.0); Sodium 139 mmol/L (137-145); Total Protein 6.8 g/dL (6.3-8.2); Triglycerides 111 mg/dL (<150)
[2025-06-11 13:04] LABS: Thyroid Stimulating Hormone 3.960 uIU/mL (0.465-4.680)
--- OUTSIDE RECORDS SUMMARY | 2025-06-11 19:09 | XMS_ITS | Patient Health Record ---
Author Organization [facility] Address [address] [place] [address] Support Name Relationship Address Phone Jose Guadalupe [...] Status W/U Status Risk Notes Problem Insomnia (120094926) Insomnia (G47.00) Active confirmed Problem Hypothyroid (02573463) Hypothyroid (E03.9) Active confirmed Problem Arthritis (7893734) Arthritis (M19.90) Active confirmed Problem Fibromyalgia (001282303) Fibromyalgia (729.1) Active confirmed Plan Of Treatment No Information Insurance Providers Payer Name Payer Address Payer Phone Subscriber Number Group Number Insured Name Patient Relationship to Insured Coverage Start Date Coverage End Date Medicare of [place] [address] [place] [address] [id number] Jose Guadalupe Gutierrez Self - patient is the insured [facility] [address] [place] [id number] Jose Guadalupe Gutierrez Self - patient is the insured Medical (General) History Medical History History ICD Code Hypothyroid E03.9 Insomnia G47.00 Arthritis M19.90 Fibromyalgia 729.1 Surgical History Surgery Date(Month/Year) Tonsils, & Adnoids Right rotator cuff repair Thyroidectomy
--- OUTSIDE RECORDS SUMMARY | 2025-06-11 19:09 | XMS_ITS | Clinical Summary ---
Author Organization [facility] [employer] Address [address] [place] [address] Care Team Providers Care Butadiene Converter Operator Name Role Phone Unavailable Primary Care Provider Unavailabl e Source Comments [facility] [employer],non-owned Affiliates and Associated Physician Practices is amultiple site organization consisting of ambulatory clinics and hospital sitesin [place], [place], [place] and [place]. This disclosure is being madepursuant to the Care Everywhere program and may not contain all information available regarding this patient. Last updated 18.[employer] Allergies No known active allergies Medications * [...] on file Legal Sex Female 12:00 PM DATA SERVICES DEVELOPER Gender Identity Not on file Sexual Orientation Not on file Last Filed Vital Signs Vital Sign Reading Time Taken Comments Blood Pressure 142/88 08/10/2019 11:12 AM DATA SERVICES DEVELOPER Pulse 90 08/10/2019 11:12 AM DATA SERVICES DEVELOPER Temperature 37.4 C (99.3 F) 08/10/2019 11:12 AM DATA SERVICES DEVELOPER Respiratory Rate 18 08/10/2019 11:12 AM DATA SERVICES DEVELOPER Oxygen Saturation 96% 08/10/2019 11:12 AM DATA SERVICES DEVELOPER Inhaled Oxygen Concentration - - Weight 66.7 kg (147 lb) 08/10/2019 11:12 AM DATA SERVICES DEVELOPER Height 158.8 cm (5' 2.5) 08/10/2019 11:12 AM CS T Body Mass Index 26.46 08/10/2019 11:12 AM DATA SERVICES DEVELOPER Plan of Treatment Health Maintenance Due Date [...] to complete this topic Insurance MEDICARE MEDICARE [facility]
--- OUTSIDE RECORDS SUMMARY | 2025-06-11 19:09 | XMS_ITS | Patient Health Record ---
Author Organization [facility] Address [address] [place], [place] [id number] Support Name Relationship Address Phone ALEXSANDRA JAVIER Emergency Contact Unknown MIGUEL WALLACE Guarantor Unknown Reason For Referral No Information Social History Social History Additional Details Category Social Info Options Details Migrated Social History Migrated Social History History of tobacco use : , Smoking Status : Never used tobacco Plan Of Treatment No Information Insurance Providers Payer Name Payer Address Payer Phone Subscriber Number Group Number Insured Name Patient Relationship to Insured Coverage Start Date Coverage End Date Medicare Part B [place] [address] [place] [phone] [id number] MIGUEL WALLACE Self - patient is the insured [facility] [address] [place] [address] [phone] [id number] MIGUEL WALLACE Self - patient is the insured
--- OUTSIDE RECORDS SUMMARY | 2025-06-11 19:10 | XMS_ITS | Clinical Summary ---
Author Organization [facility] Address [facility] [place] [address] Care Team Providers Care Percussion Instrument Tuner Name Role Phone Melo Daugherty MD Primary [...] 1 tablet (88 mcg total) by mouth chocolate maker before breakfast 4 Active alendronate 70 mg [...] 08/22/2023 Assessment & Plan (08/22/2023 9:31 AM DIRECTOR CLOUD TRANSFORMATION): Ms. Jose Guadalupe Gutierrez is a 77 [...] on file Legal Sex Female 1:12 AM DIRECTOR CLOUD TRANSFORMATION Gender Identity Not on file Sexual Orientation [...] GENERIC MEDICARE [employer] SENIOR SUPPLEMENT Care Teams Percussion Instrument Tuner Relationship Specialty Start Date End Date Melo Daugherty MD [address] [place] [address] PCP - General 01/31/13
--- OUTSIDE RECORDS SUMMARY | 2025-06-11 19:10 | XMS_ITS | Clinical Summary ---
Author Organization [facility] Address [address] [place] [address] Care Team Providers Care Mailer Name Role Phone Melo Daugherty MD Primary Care Provider [phone] Social History Tobacco Use Types Packs/Day Years [...] 75+ series) 2021 COVID-19 Vaccine (2 - 2024-2 6 season) 2025 05/12/2024 Influenza Adult (#1) 2025 05/12/2024 Hepatitis A Vaccines Aged Out No long er eligible based on patient's age to complete this topic Meningococcal B Vaccine Aged Out No l onger eligible based on patient's age to complete this topic Meningococcal Vaccine Aged Out No ruddy jenny eligible based on patient's age to complete this topic RSV Immunizations Under 20 Months Aged Out No longer eligible based on patient's age to complete this topic Insurance MEDICARE [facility] Care Teams Mailer Relationship Specialty Start Date End Date Melo Daugherty MD [address] [place] [address] PCP - General INTERNAL MEDICINE 02/21/19
== END 2025-06-11 11:18 | disposition home or self-care (01) ==
LOC: ANHLAB 11:21
PROVIDERS: PCP Emergency Medicine; Visit Provider Emergency Medicine
DX: E78.5 Hyperlipidemia, unspecified (principal); E55.9 Vitamin D deficiency, unspecified; E03.9 Hypothyroidism, unspecified; R53.83 Other fatigue
CPT/HCPCS: 36415; 80053; 80061; 82306; 84443

== ENCOUNTER 2025-06-24 14:07 | Emergency (ER) | payer MEDICARE, SELFPAY ==
--- NOTE | ~2025-06-24 | CT_ITS ---
EXAMINATION: CT brain wo con DATE: 06/24/2025 16:44 INDICATION: Lethargy TECHNIQUE: Computed tomography (CT) of the head was performed without intravenous contrast. The dose-length product was 605.33 mGy-cm. COMPARISON: February 02, 2022 FINDINGS: No gross intracranial mass effect or hemorrhage. No large acute ischemic event. Chronic microvascular ischemic appearing changes and mild volume loss. Calvarial structures appear stable. IMPRESSION: 1. No gross intracranial mass effect or hemorrhage. Reviewed, dictated and finalized at location A. TED RADIOLOGY TECHNICIAN
--- NOTE | ~2025-06-24 | XR_ITS ---
EXAMINATION: XR chest 2V DATE: 06/24/2025 16:55 INDICATION: Lethargy TECHNIQUE: PA and lateral views of the chest were obtained. COMPARISON: Chest radiograph dated 07/06/2017 FINDINGS: The lungs remain clear with no focal airspace opacities, pulmonary edema, pleural effusion or pneumothorax. The cardiomediastinal silhouette is normal. Mild thoracic kyphosis with moderate spondylosis. IMPRESSION: 1. No acute cardiopulmonary disease. Reviewed, dictated and finalized at location A. E SETTER
[2025-06-24 14:13] VITALS: BP 213/80; PULSE 77; RESP 16; TEMP 36.6; O2SAT 99
--- NOTE | 2025-06-24 16:17 | ED.GENADULT ---
HPI - General Adult General Chief complaint: Recheck/Abnormal Lab/Rx <SNEHAL Alcaraz - Last Filed: 06/24/25 16:34> Stated complaint: high BP <SNEHAL Alcaraz - Last Filed: 06/24/25 16:34> Time Seen by Provider: 06/24/25 18:35 <SNEHAL Alcaraz - Last Filed: 06/24/25 16:34> Focused HPI: 79 year old female presenting with increased fatigue and subjective lethargy. Currently prescribed oxycodone for a recent knee surgery at the beginning of May so patient endorses that the medicine can often make her feel lethargic but she has felt that it has been worse recently not attributing it to the medicine. Denies dizziness, fevers/chills, headache, nausea/vomiting/diarrhea, cp/shortness, urinary concerns, or history of trauma. Patient has ongoing uncontrolled hypertension. GENERAL: No acute distress. HEAD: Normocephalic, atraumatic. CHEST: Clear to auscultation. ?No respiratory distress. HEART: Regular rate and rhythm.? NEURO: ?Alert and oriented x3. Patient screened in triage and initial orders placed.? ?Additional care and disposition to be based upon?diagnostic testing and treatment. <SNEHAL Alcaraz - Last Filed: 06/24/25 16:34> History of Present Illness HPI narrative: I agree with the above HPI <José Miguel Bowden MD - Last Filed: 06/24/25 21:50> Related Data Home medications: Home Medications ?Medication ?Instructions ?Recorded ?Confirmed ?Last Taken ?Type cholecalciferol (vitamin D3) 50 50 mcg PO DAILY 04/17/23 06/24/25 05/07/25 History mcg (2,000 unit) capsule fexofenadine-pseudoephedrine ER 1 tablet PO DAILY PRN sinus 04/03/24 06/24/25 Unknown History 180 mg-240 mg tablet,ext.release symptoms 24 hr (Mckenzie-D 24 Hour) acetaminophen 500 mg tablet 1,000 mg PO Q6H 05/06/25 06/24/25 Unknown History (Acetaminophen Pain Relief) magnesium 200 mg tablet 400 mg PO DAILY 05/06/25 06/24/25 05/07/25 History <SNEHAL Alcaraz - Last Filed: 06/24/25 16:34> Allergies/adverse reactions: Allergies Allergy/AdvReac Type Severity Reaction Status Date / Time tramadol Allergy Severe Abdominal Verified 06/24/25 14:04 Pain AND NAUSEA vancomycin Allergy Unknown unknown-FAMILY Verified 06/24/25 14:04 REACTION <SNEHAL Alcaraz - Last Filed: 06/24/25 16:34> Review of Systems Review of Systems: All systems reviewed & are unremarkable except as noted in HPI and below <José Miguel Bowden MD - Last Filed: 06/24/25 21:50> [facility] Past Medical History Medical History: Medical History Contracture, left knee Acromioclavicular joint separation Right shoulder pain Left knee pain Left-sided chest pain Back pain with sciatica Vitamin D deficiency Unspecified asthma, uncomplicated Primary insomnia Polyosteoarthritis, unspecified Pharyngeal dysphagia Patient had no falls in past year Other dysphagia Numbness and tingling of left leg Major depressive disorder, single episode, unspecified Lt arm numbness Low back pain Left lower quadrant abdominal pain L4-L5 disc bulge Kidney stones Irritable bowel syndrome without diarrhea Irritable bowel syndrome with diarrhea Gastro-esophageal reflux disease without esophagitis Encounter for other specified surgical aftercare Complete tear of left rotator cuff Cervical stenosis of spinal canal Carpal tunnel syndrome of left wrist Orthopedic aftercare for joint replacement Overweight (BMI 25.0-29.9) Spinal stenosis at L4-L5 level Hypothyroidism, unspecified Peripheral neuropathy Chronic GERD Spinal stenosis Orthopedic aftercare COVID Primary osteoarthritis of left knee Hyperlipidemia Abdominal pain Anxiety Hypothyroidism (acquired) Insomnia <SNEHAL Alcaraz - Last Filed: 06/24/25 16:34> Surgical History Surgical History: Surgical History Status post surgical manipulation of knee joint (~05/16/22) Lt Knee History of total knee arthroplasty Status post total left knee replacement <SNEHAL Alcaraz - Last Filed: 06/24/25 16:34> Family History Family History: Family History Mother Diabetes mellitus Family history of cardiovascular disease Cerebrovascular accident Family history of arthritis Other Family history of type 2 diabetes mellitus <SNEHAL Alcaraz - Last Filed: 06/24/25 16:34> Social History Social History: Social History (Updated 06/24/25 @ 15:27 by Lor Hoskins MA) Social History: Patient drinks 7.5oz of caffeine daily. Patient also exercises daily. Smoking status: Never smoker Second hand tobacco smoke exposure: No Additional smoking assessment comments: DENIES ANY TOBACCO USE Alcohol intake: never Drinks per week: 1 Substance use: never Substance use type: does not use Do You Feel Safe in your Home?: Yes Lack of Transportation: No Lack of Food: Never True Current Housing: Decline to Answer Concerned About Future Housing: Decline to Answer Difficulty Paying Gas/Electric Bills: Decline to Answer Difficulty Paying for Meds: Decline to Answer Currently Unemployed: No Education: Bachelor's Degree Difficulty w/ Childcare or Family Care: No Living arrangements: with family Additional living arrangements comments: PT LIVES WITH DAUGHTER (SCAR) & FAMILY Occupation/Education: retired Gender identity (if verbalized by the patient): Female Sexual Orientation (if Verbalized by the Patient): Straight or Heterosexual Spiritual care concerns: No <SNEHAL Alcaraz - Last Filed: 06/24/25 16:34> Exam Narrative: APPEARANCE: Well appearing, no pain, no distress, well-nourished. HEAD: normocephalic, atraumatic. EYES: PERRLA/EOMI, conjunctivae clear. NOSE: Normal no drainage EARS:TMS clear with good light reflex. THROAT: Pharynx clear, no exudate. NECK: Supple. No adenopathy, no masses. RESPIRATORY: Airway patent, respirations nonlabored. Clear to auscultation bilaterally, no rales, rhonchi, wheezing. CARDIOVASCULAR: Regular rate and rhythm without murmurs rubs or gallops. ABDOMINAL: Soft, nontender, nondistended, normal bowel sounds MUSCULOSKELETAL: Moves all extremities. Strength/ROM intact, No edema, No calf tenderness. NEURO: Alert. Cranial nerves II through XII intact. Good gait. Good coordination SKIN: Warm, dry. Normal Color <José Miguel Bowden MD - Last Filed: 06/24/25 21:50> Course Vital Signs Vital signs: Vital Signs Temperature 98 F 06/24/25 14:13 Pulse Rate 77 06/24/25 14:13 Respiratory Rate 16 06/24/25 14:13 Blood Pressure 213/80 H 06/24/25 14:13 Pulse Oximetry 99 06/24/25 14:13 Oxygen Delivery Room Air 06/24/25 14:13 Temperature 98 F 06/24/25 14:13 Pulse Rate 75 06/24/25 17:09 Respiratory Rate 23 H 06/24/25 17:09 Blood Pressure 157/56 H 06/24/25 21:00 Pulse Oximetry 99 06/24/25 17:09 Oxygen Delivery Room Air 06/24/25 14:13 <SNEHAL Alcaraz - Last Filed: 06/24/25 16:34> Vital Signs Temperature 98 F 06/24/25 14:13 Pulse Rate 77 06/24/25 14:13 Respiratory Rate 16 06/24/25 14:13 Blood Pressure 213/80 H 06/24/25 14:13 Pulse Oximetry 99 06/24/25 14:13 Oxygen Delivery Room Air 06/24/25 14:13 Temperature 98 F 06/24/25 14:13 Pulse Rate 75 06/24/25 17:09 Respiratory Rate 23 H 06/24/25 17:09 Blood Pressure 157/56 H 06/24/25 21:00 Pulse Oximetry 99 06/24/25 17:09 Oxygen Delivery Room Air 06/24/25 14:13 <José Miguel Bowden MD - Last Filed: 06/24/25 21:50> Medical Decision Making MDM Narrative Medical decision making narrative: 79-year-old female presented emergency department for evaluation for hypertension. Patient's blood pressure typically runs in the 150 systolic range but was running approximately 213/80. Patient denies any complaints with this. Patient was attempting to have follow-up with primary care physician today but he was sick. Patient presented emergency department for evaluation. The patient is currently afebrile and leukocytosis hemoglobin of 12.2. INR 0.9. Normal electrolytes with normal kidney function and no proteinuria. Head CT was negative. Chest x-ray shows no acute cardiopulmonary abnormality. I did discuss the case with the patient's primary care physician and she will increase her hydralazine from 10 mg b.i.d. to 10 mg t.i.d.. Patient was treated with 10 mg IV and 15 mg p.o.. Patient's blood pressure was improved. Patient did feel improved time discharge. Patient family updated the results of the workup and plan for treatment for home. All questions concerns were addressed. <José Miguel Bowden MD - Last Filed: 06/24/25 21:50> Differential Diagnosis Differential Diagnosis: hypertensive emergency, hypertensive crisis, Tammy trauma, subarachnoid hemorrhage, ACS <José Miguel Bowden MD - Last Filed: 06/24/25 21:50> Vital Signs Vital Signs: Vital Signs Temperature 98 F 06/24/25 14:13 Pulse Rate 77 06/24/25 14:13 Respiratory Rate 16 06/24/25 14:13 Blood Pressure 213/80 H 06/24/25 14:13 Pulse Oximetry 99 06/24/25 14:13 Oxygen Delivery Room Air 06/24/25 14:13 Temperature 98 F 06/24/25 14:13 Pulse Rate 75 06/24/25 17:09 Respiratory Rate 23 H 06/24/25 17:09 Blood Pressure 157/56 H 06/24/25 21:00 Pulse Oximetry 99 06/24/25 17:09 Oxygen Delivery Room Air 06/24/25 14:13 <SNEHAL Alcaraz - Last Filed: 06/24/25 16:34> Vital Signs Temperature 98 F 06/24/25 14:13 Pulse Rate 77 06/24/25 14:13 Respiratory Rate 16 06/24/25 14:13 Blood Pressure 213/80 H 06/24/25 14:13 Pulse Oximetry 99 06/24/25 14:13 Oxygen Delivery Room Air 06/24/25 14:13 Temperature 98 F 06/24/25 14:13 Pulse Rate 75 06/24/25 17:09 Respiratory Rate 23 H 06/24/25 17:09 Blood Pressure 157/56 H 06/24/25 21:00 Pulse Oximetry 99 06/24/25 17:09 Oxygen Delivery Room Air 06/24/25 14:13 <José Miguel Bowden MD - Last Filed: 06/24/25 21:50> Lab Data Lab results reviewed: Yes I reviewed the patient's lab results. <José Miguel Bowden MD - Last Filed: 06/24/25 21:50> Result diagrams: 06/24/25 17:19 06/24/25 17:19 <SNEHAL Alcaraz - Last Filed: 06/24/25 16:34> Labs: Lab Results 06/24/25 Range/Units 17:19 WBC 9.1 (4.5-10.0) K/mm3 RBC 4.13 L (4.2-5.4) M/mm3 Hgb 12.2 (12.0-15.0) g/dL Hct 37.9 (37.0-47.0) % MCV 91.8 (80-100) fl MCH 29.5 (26-34) pg MCHC 32.2 (32-36) g/dl RDW 12.7 (11.5-14.5) % Plt Count 306 (150-375) k/mm3 MPV 10.3 (7.4-10.4) fl Immature Gran % (Auto) 0.4 (0-0.5) % Neut % (Auto) 77.2 H (45.5-73.1) % Lymph % (Auto) 15.9 L (18.3-44.2) % [place] % (Auto) 6.3 (2.6-8.5) % Eos % (Auto) 0.0 (0-4.4) % Baso % (Auto) 0.2 (0.2-1.2) % Lymph # (Auto) 1.45 (0.9-3.2) K/mm3 [place] # (Auto) 0.6 (0.1-0.6) K/mm3 Eos # (Auto) 0.0 (0-0.3) K/mm3 Baso # (Auto) 0.0 (0.0-0.1) K/mm3 Abs Immat Gran (auto) 0.04 H (0.00-0.031) K/mm3 Absolute Neuts (auto) 7.0 H (1.3-6.7) K/mm3 Absolute Nucleated RBC 0.000 (0.0-0.012) K/mm3 Nucleated RBC % 0.0 (0.0-0.2) % PT 12.2 (11.1-14.7) Seconds INR 0.9 APTT 25.9 (22.3-36.8) Seconds Sodium 141 (137-145) mmol/L Potassium 3.3 L (3.4-5.0) mmol/L Chloride 105 (98-107) mmol/L Carbon Dioxide 25 (22-30) mmol/L Anion Gap 11 (4-12) mmol/L BUN 19 H (7-17) mg/dL Creatinine 0.82 (0.7-1.0) mg/dL Estim Creat Clear Calc 43 ml/min Estimated GFR > 60 (59 - ) Glucose 119 H (65-110) mg/dL Calcium 9.5 (8.4-10.2) mg/dL Total Bilirubin 0.6 (0.2-1.3) mg/dL AST 31 (14-36) U/L ALT 22 (6-35) U/L Alkaline Phosphatase 81 (38-126) U/L Total Protein 8.1 (6.3-8.2) g/dL Albumin 4.9 (3.5-5.1) g/dL Urine Color Yellow (Yellow) Urine Appearance Clear (Clear) Urine pH 5.5 (5.0-9.0) Ur Specific Orange 1.023 (1.001-1.035) Urine Protein Trace (Negative) mg/dL Urine Glucose (UA) Negative (Negative) mg/dL Urine Ketones Negative (Negative) mg/dL Ur Blood (Man) Negative (Negative) Urine Nitrate Negative (Negative) Urine Bilirubin Negative (Negative) Urine Urobilinogen 0.2 (<2.0) mg/dL Leukocyte Esterase Rfl Trace H (Negative) SANJUANITA/UL Urine RBC 0-2 (0-2) /hpf Urine WBC 0-5 (0-3) /hpf Ur Squamous Epith Cells None seen (Few) /hpf Urine Bacteria None seen /hpf Urine Casts 0-2 <SNEHAL Alcaraz - Last Filed: 06/24/25 16:34> Lab Results 06/24/25 Range/Units 17:19 WBC 9.1 (4.5-10.0) K/mm3 RBC 4.13 L (4.2-5.4) M/mm3 Hgb 12.2 (12.0-15.0) g/dL Hct 37.9 (37.0-47.0) % MCV 91.8 (80-100) fl MCH 29.5 (26-34) pg MCHC 32.2 (32-36) g/dl RDW 12.7 (11.5-14.5) % Plt Count 306 (150-375) k/mm3 MPV 10.3 (7.4-10.4) fl Immature Gran % (Auto) 0.4 (0-0.5) % Neut % (Auto) 77.2 H (45.5-73.1) % Lymph % (Auto) 15.9 L (18.3-44.2) % [place] % (Auto) 6.3 (2.6-8.5) % Eos % (Auto) 0.0 (0-4.4) % Baso % (Auto) 0.2 (0.2-1.2) % Lymph # (Auto) 1.45 (0.9-3.2) K/mm3 [place] # (Auto) 0.6 (0.1-0.6) K/mm3 Eos # (Auto) 0.0 (0-0.3) K/mm3 Baso # (Auto) 0.0 (0.0-0.1) K/mm3 Abs Immat Gran (auto) 0.04 H (0.00-0.031) K/mm3 Absolute Neuts (auto) 7.0 H (1.3-6.7) K/mm3 Absolute Nucleated RBC 0.000 (0.0-0.012) K/mm3 Nucleated RBC % 0.0 (0.0-0.2) % PT 12.2 (11.1-14.7) Seconds INR 0.9 APTT 25.9 (22.3-36.8) Seconds Sodium 141 (137-145) mmol/L Potassium 3.3 L (3.4-5.0) mmol/L Chloride 105 (98-107) mmol/L Carbon Dioxide 25 (22-30) mmol/L Anion Gap 11 (4-12) mmol/L BUN 19 H (7-17) mg/dL Creatinine 0.82 (0.7-1.0) mg/dL Estim Creat Clear Calc 43 ml/min Estimated GFR > 60 (59 - ) Glucose 119 H (65-110) mg/dL Calcium 9.5 (8.4-10.2) mg/dL Total Bilirubin 0.6 (0.2-1.3) mg/dL AST 31 (14-36) U/L ALT 22 (6-35) U/L Alkaline Phosphatase 81 (38-126) U/L Total Protein 8.1 (6.3-8.2) g/dL Albumin 4.9 (3.5-5.1) g/dL Urine Color Yellow (Yellow) Urine Appearance Clear (Clear) Urine pH 5.5 (5.0-9.0) Ur Specific Orange 1.023 (1.001-1.035) Urine Protein Trace (Negative) mg/dL Urine Glucose (UA) Negative (Negative) mg/dL Urine Ketones Negative (Negative) mg/dL Ur Blood (Man) Negative (Negative) Urine Nitrate Negative (Negative) Urine Bilirubin Negative (Negative) Urine Urobilinogen 0.2 (<2.0) mg/dL Leukocyte Esterase Rfl Trace H (Negative) SANJUANITA/UL Urine RBC 0-2 (0-2) /hpf Urine WBC 0-5 (0-3) /hpf Ur Squamous Epith Cells None seen (Few) /hpf Urine Bacteria None seen /hpf Urine Casts 0-2 <José Miguel Bowden MD - Last Filed: 06/24/25 21:50> Imaging Data Radiologist's impression: Impressions Head CT 06/24/25 16:45 IMPRESSION: 1. No gross intracranial mass effect or hemorrhage. Chest X-Ray 06/24/25 16:59 IMPRESSION: 1. No acute cardiopulmonary disease. <José Miguel Bowden MD - Last Filed: 06/24/25 21:50> Discharge Plan Discharge Clinical Impression: Hypertension <SNEHAL Alcaraz - Last Filed: 06/24/25 16:34> Patient Disposition: Home <SNEHAL Alcaraz - Last Filed: 06/24/25 16:34> Condition: Stable <SNEHAL Alcaraz - Last Filed: 06/24/25 16:34> Instructions: Antibiotic Form, Hypertension (ED) <SNEHAL Alcaraz - Last Filed: 06/24/25 16:34> Additional Instructions: Increase your 10 mg hydralazine to 3 times a day. Do not take anymore hydralazine tonight. Call your primary care physician for follow-up. <SNEHAL Alcaraz - Last Filed: 06/24/25 16:34> Patient Language: Polish <SNEHAL Alcaraz - Last Filed: 06/24/25 16:34> Prescriptions: No Action triamcinolone acetonide 0.1 % ointment 1 applic topical TID Qty: 80 0RF magnesium 200 mg tablet 400 mg PO DAILY alendronate [Fosamax] 70 mg tablet 70 mg PO WEEKLY Qty: 12 2RF cholecalciferol (vitamin D3) 50 mcg (2,000 unit) capsule 50 mcg PO DAILY oxycodone-acetaminophen [Percocet] 5-325 mg tablet 1 - 2 tablet PO Q4-6H PRN (Reason: pain) 7 Days Qty: 30 0RF acetaminophen [Acetaminophen Pain Relief] 500 mg tablet 1,000 mg PO Q6H cephalexin 500 mg capsule 500 mg PO BID 14 Days Qty: 28 0RF Rx Instructions: Take twice a day for 2 weeks. hydroxyzine HCl 25 mg tablet See Rx Instructions .ROUTE .COMPLEX Qty: 30 0RF Dose Instruction: TAKE 1 TABLET BY MOUTH TWICE DAILY NEEDED FOR ITCHING Rx Instructions: TAKE 1 TABLET BY MOUTH TWICE DAILY NEEDED FOR ITCHING fluticasone propionate 50 mcg/actuation spray,suspension See Rx Instructions .ROUTE .COMPLEX Qty: 16 3RF Dose Instruction: SHAKE LIQUID AND USE 1 SPRAY IN EACH NOSTRIL DAILY Rx Instructions: SHAKE LIQUID AND USE 1 SPRAY IN EACH NOSTRIL DAILY fexofenadine-pseudoephedrine [Mckenzie-D 24 Hour] 180-240 mg tablet extended release 24 hr 1 tablet PO DAILY PRN (Reason: sinus symptoms) cyclobenzaprine 10 mg tablet See Rx Instructions .ROUTE .COMPLEX Qty: 90 2RF Dose Instruction: TAKE 1 TABLET BY MOUTH THREE TIMES DAILY NEEDED FOR MUSCLE SPASM Rx Instructions: TAKE 1 TABLET BY MOUTH THREE TIMES DAILY NEEDED FOR MUSCLE SPASM pantoprazole 40 mg tablet,delayed release (DR/EC) See Rx Instructions .ROUTE .COMPLEX Qty: 180 2RF Dose Instruction: TAKE 1 TABLET BY MOUTH TWICE DAILY Rx Instructions: TAKE 1 TABLET BY MOUTH TWICE DAILY levothyroxine 88 mcg tablet See Rx Instructions .ROUTE .COMPLEX Qty: 90 2RF Dose Instruction: TAKE 1 TABLET BY MOUTH DAILY Rx Instructions: TAKE 1 TABLET BY MOUTH DAILY atorvastatin 10 mg tablet See Rx Instructions .ROUTE .COMPLEX Qty: 90 2RF Dose Instruction: TAKE 1 TABLET BY MOUTH DAILY Rx Instructions: TAKE 1 TABLET BY MOUTH DAILY alprazolam [Xanax] 0.5 mg tablet 0.5 mg PO BID PRN (Reason: anxiety) Qty: 30 0RF zolpidem 10 mg tablet 10 mg PO QHS Qty: 30 1RF hydralazine 10 mg tablet See Rx Instructions .ROUTE .COMPLEX Qty: 180 2RF Dose Instruction: TAKE 1 TABLET BY MOUTH TWICE DAILY Rx Instructions: TAKE 1 TABLET BY MOUTH TWICE DAILY <SNEHAL Alcaraz - Last Filed: 06/24/25 16:34> Follow-up/Referrals: Melo Daugherty MD [Primary Care Provider, Internal Medicine] <SNEHAL Alcaraz - Last Filed: 06/24/25 16:34>
[2025-06-24 17:09] VITALS: BP 201/90; PULSE 75; RESP 23; O2SAT 99
[2025-06-24 17:27] LABS: Hematocrit 37.9 % (37.0-47.0); Hemoglobin 12.2 g/dL (12.0-15.0); Immature Granulocyte Percent A 0.4 % (0-0.5); Lymphocytes Absolute Auto 1.45 K/mm3 (0.9-3.2); Mean Corpuscular HGB Conc 32.2 g/dl (32-36); Mean Corpuscular Hemoglobin 29.5 pg (26-34); Mean Corpuscular Volume 91.8 fl (80-100); Nucleated Red Blood Cells Absolute Auto 0.000 K/mm3 (0.0-0.012); Nucleated Red Blood Cells Perc 0.0 % (0.0-0.2); Platelet Count Result 306 k/mm3 (150-375); Red Blood Count 4.13 M/mm3 (4.2-5.4); White Blood Count 9.1 K/mm3 (4.5-10.0)
[2025-06-24 17:33] LABS: Add Urine Microscopic? YES; Appearance Urine Clear (Clear); Glucose Urine UA Negative (Negative); Leukocyte Esterase Ur Trace LEU/UL (Negative); Nitrate Urine Negative (Negative); Non Pathogenic Casts 0-2; Specific Grav Ur 1.023 (1.001-1.035)
[2025-06-24 17:44] LABS: INR 0.9; Prothrombin Time 12.2 Seconds (11.1-14.7)
[2025-06-24 17:45] LABS: Partial Thromboplastin Time 25.9 Seconds (22.3-36.8)
[2025-06-24 17:58] LABS: Alanine Aminotransferase 22 U/L (6-35); Albumin Level 4.9 g/dL (3.5-5.1); Alkaline Phosphatase 81 U/L (38-126); Anion Gap 11 mmol/L (4-12); Aspartate Amino Transferase 31 U/L (14-36); Bilirubin,Total 0.6 mg/dL (0.2-1.3); Blood Urea Nitrogen 19 mg/dL (7-17); Calcium 9.5 mg/dL (8.4-10.2); Carbon Dioxide 25 mmol/L (22-30); Chloride 105 mmol/L (98-107); Estimated CRCL calculation 43 ml/min; Estimated Glomerular Filt Rate > 60; Glucose 119 mg/dL (65-110); Potassium 3.3 mmol/L (3.4-5.0); Sodium 141 mmol/L (137-145); Total Protein 8.1 g/dL (6.3-8.2)
[2025-06-24 20:00] VITALS: BP 210/71
[2025-06-24] MEDS: hydrALAZINE 5 MG TABLET 15 MG PO (20:01)
[2025-06-24] MEDS: oxyCODONE/ACETAMINOPHEN (*CRX) 5-325 MG TABLET 1 TABLET PO (20:58)
[2025-06-24 21:00] VITALS: BP 157/56
--- OUTSIDE RECORDS SUMMARY | 2025-06-25 01:46 | XMS_ITS | Clinical Summary ---
Author Organization [facility] Address [address] [place] [address] Care Team Providers Care Superintendent Stations Name Role Phone Melo Daugherty MD Primary Care Provider [phone] Social History Tobacco Use Types Packs/Day Years [...] age to complete this topic Insurance MEDICARE [facility] Care Teams Superintendent Stations Relationship Specialty Start Date End Date Melo Daugherty MD [address] [place] [address] PCP - General INTERNAL MEDICINE 02/21/19
--- OUTSIDE RECORDS SUMMARY | 2025-06-25 01:46 | XMS_ITS | Clinical Summary ---
Author Organization [facility] Address [facility] [place] [address] Care Team Providers Care Fudge Candy Maker Name Role Phone Melo Daugherty MD Primary [...] 1 tablet (88 mcg total) by mouth acetylene torch operator before breakfast 4 Active alendronate 70 [...] 08/22/2023 Assessment & Plan (08/22/2023 9:31 AM INDUSTRIAL ROBOTICS MECHANIC): Ms. Jose Guadalupe Gutierrez is a 77 [...] today. Surgical History Surgery Date Site/Laterality Comments [place] TOTAL THYROID LOBEC UNI W/CONTRALAT STOT LOBEC [...] on file Legal Sex Female 1:12 AM INDUSTRIAL ROBOTICS MECHANIC Gender Identity Not on file Sexual Orientation [...] GENERIC MEDICARE [employer] SENIOR SUPPLEMENT Care Teams Fudge Candy Maker Relationship Specialty Start Date End Date Melo Daugherty MD [address] [place] [address] PCP - General 01/31/13
--- OUTSIDE RECORDS SUMMARY | 2025-06-25 01:46 | XMS_ITS | Patient Health Record ---
Author Organization [facility] Address [address] [place], [place] [id number] Support Name Relationship Address Phone ALEXSANDRA JAVIER [...] Date Coverage End Date Medicare Part B [place] [address] [place] [address] [id number] MIGUEL WALLACE Self - patient is the insured [facility] [address] [place] [phone] [id number] MIGUEL WALLACE Self - patient is the insured
--- OUTSIDE RECORDS SUMMARY | 2025-06-25 01:46 | XMS_ITS | Patient Health Record ---
Author Organization [facility] Address [address] [place] [address] Support Name Relationship Address Phone Jose Guadalupe [...] Status W/U Status Risk Notes Problem Insomnia (908837999) Insomnia (G47.00) Active confirmed Problem Hypothyroid (27929461) Hypothyroid (E03.9) Active confirmed Problem Arthritis (5989755) Arthritis (M19.90) Active confirmed Problem Fibromyalgia (387361989) Fibromyalgia (729.1) Active confirmed Plan Of Treatment No Information Insurance Providers Payer Name Payer Address Payer Phone Subscriber Number Group Number Insured Name Patient Relationship to Insured Coverage Start Date Coverage End Date [employer] of [place] [address] [place] [address] [phone] [id number] Jose Guadalupe Gutierrez Self - patient [facility] the [facility] [address] [place] [id number] Jose Guadalupe Gutierrez Self - patient is the insured Medical (General) History Medical History History ICD Code Hypothyroid E03.9 Insomnia G47.00 Arthritis M19.90 Fibromyalgia 729.1 Surgical History Surgery Date(Month/Year) Tonsils, & Adnoids Right rotator cuff repair Thyroidectomy
--- OUTSIDE RECORDS SUMMARY | 2025-06-25 01:46 | XMS_ITS | Clinical Summary ---
Author Organization [facility] Address [address] [place] [address] Care Team Providers Care Police Patrol Lieutenant Name Role Phone Unavailable Primary Care Provider Unavailabl e Source Comments [facility],non-owned Affiliates and Associated Physician Practices is amultiple site organization consisting of ambulatory clinics and hospital sitesin [place], [place], [place] and [place]. This disclosure is being madepursuant to the Care Everywhere program and may not contain all information available regarding this patient. 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 Gender Identity Not on file Sexual Orientation Not on file Last Filed Vital Signs Vital Sign Reading Time Taken Comments Blood Pressure 142/88 08/10/2019 11:12 AM MEAT SPECIALIST Pulse 90 08/10/2019 11:12 AM MEAT SPECIALIST Temperature 37.4 C (99.3 F) 08/10/2019 11:12 AM MEAT SPECIALIST Respiratory Rate 18 08/10/2019 11:12 AM MEAT SPECIALIST Oxygen Saturation 96% 08/10/2019 11:12 AM MEAT SPECIALIST Inhaled Oxygen Concentration - - Weight 66.7 kg (147 lb) 08/10/2019 11:12 AM MEAT SPECIALIST Height 158.8 cm (5' 2.5) 08/10/2019 11:12 AM CS T Body Mass Index 26.46 08/10/2019 11:12 AM MEAT SPECIALIST Plan of Treatment Health Maintenance Due Date Last Done Comments BONE DENSITY TESTING 1945 HEPATITIS C SCREENING 08/25/1964 DTAP/TDAP/TD VACCINES (1 - Tdap) 1965 PNEUMOCOCCAL VACCINE 50+ (1 of 1 - PCV) 1996 ZOSTER VACCINE (1 of 2) 1996 Respiratory Syncytial Virus (RSV) Vaccine Pt: or over 60 yrs (1 - 1-dose 75+ series) 2021 DEPRESSION SCREENING 08/06/2024 COVID-19 VACCINE (1 - 2024-2 6 season) 2025 INFLUENZA VACCINE (#1) 2025 HEPATITIS [...] to complete this topic Insurance MEDICARE MEDICARE [facility]
== END 2025-06-24 21:19 | disposition home or self-care (01) ==
PROVIDERS: Emergency Provider Emergency Medicine; PCP Emergency Medicine
DX: I10 Essential (primary) hypertension (principal); J45.909 Unspecified asthma, uncomplicated; E55.9 Vitamin D deficiency, unspecified; E03.9 Hypothyroidism, unspecified; E78.5 Hyperlipidemia, unspecified; G62.9 Polyneuropathy, unspecified; K58.9 Irritable bowel syndrome, unspecified; K21.9 Gastro-esophageal reflux disease without esophagitis; M17.12 Unilateral primary osteoarthritis, left knee; F41.9 Anxiety disorder, unspecified; Z96.652 Presence of left artificial knee joint; Z86.16 Personal history of COVID-19; Z87.442 Personal history of urinary calculi; Z79.899 Other long term (current) drug therapy
CPT/HCPCS: 36415; 70450; 71046; 80053; 81001; 85025; 85610; 85730; 96374; 99284; A9270; J0360